=== PATIENT | male | born 1950 | race Caucasian/White ===

== ENCOUNTER 2023-01-14 12:33 | Outpatient (OUT) | payer MEDICARE, OTHER, SELFPAY ==
[2023-01-14 14:14] LABS: Prostate Specific Antigen Dx 4.17 ng/mL (<=4.00)
== END 2023-01-14 12:34 | disposition home or self-care (01) ==
LOC: LAB 12:40
PROVIDERS: PCP Family Medicine
DX: N40.0 Benign prostatic hyperplasia without lower urinary tract symptoms (principal); N20.0 Calculus of kidney; R97.20 Elevated prostate specific antigen [PSA]
CPT/HCPCS: 36415; 84153

== ENCOUNTER 2023-02-20 09:30 | Outpatient (OUT) | payer MEDICARE, OTHER, SELFPAY ==
[2023-02-20 10:09] LABS: Basophils Absolute Auto 0.1 10^3/uL (0.0-0.1); Basophils Percent Auto 0.7 % (0.2-2.0); Eosinophils Absolute Auto 0.3 10^3/uL (0.0-0.7); Eosinophils Percent Auto 3.5 % (0.9-7.0); Hematocrit 40.6 % (42.0-54.0); Hemoglobin 13.2 g/dL (14.0-18.0); Immature Granulocytes Abs Auto 0.03 10^3/uL (0.00-0.03); Immature Granulocytes Pct Auto 0.4 % (0.0-0.5); Lymphocytes Absolute Auto 0.9 10^3/uL (1.2-3.8); Mean Corpuscular HGB Conc 32.5 g/dL (29.9-35.2); Mean Corpuscular Hemoglobin 30.4 pg (25.9-34.0); Mean Corpuscular Volume 93.5 fL (80.0-94.0); Mean Platelet Volume 10.5 fL (9.5-13.5); Monocytes Absolute Auto 0.8 10^3/uL (0.3-0.8); Monocytes Percent Auto 10.6 % (1.7-12.0); Neutrophils Absolute Auto 5.3 10^3/uL (1.4-6.5); Neutrophils Percent Auto 72.8 % (43.0-75.0); Platelet Count 289 10^3/uL (150-450); Red Blood Count 4.34 10^6/uL (4.70-6.10); White Blood Count 7.2 10^3/uL (4.0-11.0)
[2023-02-20 10:11] LABS: Estimated Average Glucose 134 mg/dL; Glycohemoglobin A1C 6.3 % (4.5-6.2)
[2023-02-20 11:58] LABS: Alanine Aminotransferase 31 U/L (16-63); Albumin Globulin Ratio 1.1; Albumin Level 3.8 g/dL (3.4-5.0); Alkaline Phosphatase 66 U/L (46-116); Anion Gap 14.6; Aspartate Amino Transferase 20 U/L (15-37); BUN Creatinine Ratio 20.2; Bilirubin Total 0.5 mg/dL (0.2-1.0); Calcium 9.1 mg/dL (8.5-10.1); Carbon Dioxide 23.9 mmol/L (21.0-32.0); Chloride 105 mmol/L (98-107); Chol HDL Ratio 3.5; Cholesterol 161 mg/dL (<=200); Estimated GFR (African America >60 (>=60); Estimated GFR (Non-African Ame 55 (>=60); Free T3 2.64 pg/mL (2.18-3.98); Globulin 3.6 g/dL; Glucose 136 mg/dL (74-106); HDL Cholesterol 46 mg/dL (40-60); LDL Cholesterol Calculated 86.8 mg/dL; Potassium 4.5 mmol/L (3.5-5.1); Sodium 139 mmol/L (136-145); Thyroid Stimulating Hormone 2.668 uIU/mL (0.358-3.740); Total Protein 7.4 g/dL (6.4-8.2); Triglycerides 141 mg/dL (<=150); VLDL CHOLESTEROL 28.2 mg/dL
== END 2023-02-20 09:31 | disposition home or self-care (01) ==
LOC: LAB 09:32
PROVIDERS: PCP Family Medicine; Visit Provider Family Medicine
DX: E78.5 Hyperlipidemia, unspecified (principal); M54.50 Low back pain, unspecified; R73.09 Other abnormal glucose
CPT/HCPCS: 36415; 80053; 80061; 83036; 84436; 84443; 84481; 85025

== ENCOUNTER 2023-05-10 10:54 | Outpatient (OUT) | payer MEDICARE, OTHER, SELFPAY ==
[2023-05-10 11:18] LABS: Basophils Percent Auto 0.6 % (0.2-2.0); Eosinophils Absolute Auto 0.3 10^3/uL (0.0-0.7); Eosinophils Percent Auto 3.6 % (0.9-7.0); Hematocrit 43.9 % (42.0-54.0); Hemoglobin 14.2 g/dL (14.0-18.0); Immature Granulocytes Abs Auto 0.03 10^3/uL (0.00-0.03); Immature Granulocytes Pct Auto 0.4 % (0.0-0.5); Lymphocytes Absolute Auto 0.7 10^3/uL (1.2-3.8); Lymphocytes Percent Auto 10.2 % (20.5-60.0); Mean Corpuscular HGB Conc 32.3 g/dL (29.9-35.2); Mean Corpuscular Hemoglobin 30.1 pg (25.9-34.0); Mean Corpuscular Volume 93.2 fL (80.0-94.0); Mean Platelet Volume 10.4 fL (9.5-13.5); Monocytes Absolute Auto 0.7 10^3/uL (0.3-0.8); Monocytes Percent Auto 9.8 % (1.7-12.0); Neutrophils Absolute Auto 5.2 10^3/uL (1.4-6.5); Neutrophils Percent Auto 75.4 % (43.0-75.0); Platelet Count 247 10^3/uL (150-450); Red Blood Count 4.71 10^6/uL (4.70-6.10); Red Cell Distribution Width 12.5 % (11.0-15.0); White Blood Count 6.9 10^3/uL (4.0-11.0)
[2023-05-10 11:57] LABS: Estimated Average Glucose 140 mg/dL; Glycohemoglobin A1C 6.5 % (4.5-6.2)
[2023-05-10 12:37] LABS: Prostate Specific Antigen Scrn 4.22 ng/mL (<=4.00)
[2023-05-10 13:05] LABS: Alanine Aminotransferase 38 U/L (16-63); Albumin Level 3.9 g/dL (3.4-5.0); Alkaline Phosphatase 73 U/L (46-116); Anion Gap 13.9; Aspartate Amino Transferase 23 U/L (15-37); BUN Creatinine Ratio 16.2; Bilirubin Total 0.5 mg/dL (0.2-1.0); Calcium 9.4 mg/dL (8.5-10.1); Carbon Dioxide 26.7 mmol/L (21.0-32.0); Chloride 101 mmol/L (98-107); Chol HDL Ratio 3.7; Cholesterol 179 mg/dL (<=200); Estimated GFR (African America >60 (>=60); Estimated GFR (Non-African Ame >60 (>=60); Free T3 2.78 pg/mL (2.18-3.98); Globulin 3.8 g/dL; Glucose 134 mg/dL (74-106); HDL Cholesterol 48 mg/dL (40-60); Potassium 4.6 mmol/L (3.5-5.1); Sodium 137 mmol/L (136-145); Thyroid Stimulating Hormone 1.895 uIU/mL (0.358-3.740); Total Protein 7.7 g/dL (6.4-8.2); Triglycerides 227 mg/dL (<=150); VLDL CHOLESTEROL 45.4 mg/dL
[2023-05-14 09:08] LABS: PSA, Free 0.57 ng/mL; Prostate Specific Ag 3.5 ng/mL (0.0-4.0)
== END 2023-05-10 10:55 | disposition home or self-care (01) ==
PROVIDERS: PCP Family Medicine; Visit Provider Family Medicine
DX: I10 Essential (primary) hypertension (principal); K21.9 Gastro-esophageal reflux disease without esophagitis; M54.50 Low back pain, unspecified; E78.5 Hyperlipidemia, unspecified; R73.09 Other abnormal glucose; Z12.5 Encounter for screening for malignant neoplasm of prostate; R97.20 Elevated prostate specific antigen [PSA]; E11.9 Type 2 diabetes mellitus without complications
CPT/HCPCS: 36415; 80053; 80061; 83036; 84153; 84154; 84436; 84443; 84481; 85025; G0103

== ENCOUNTER 2024-01-24 11:58 | Outpatient (OUT) | payer MEDICARE, SELFPAY ==
--- OUTSIDE RECORDS SUMMARY | 2024-01-24 12:06 | XMS_ITS | CCD ---
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 Name Role Phone Unavailable Primary Care Provider Po Kay Primary Care Provider Harry Currie Attending Provider [phone] John Johnson Attending Provider [phone] Rafael Kumar Primary Care Physician John Johnson Unavailable [phone] MD Rafael Kumar Primary Care Provider [phone] MD John Johnson Attending Provider DR RAFAEL KUMAR Admitting Unavailable CASTRO, DR YOUNG Primary Care Unavailable CASTRO, DR YOUNG Consulting Unavailable CASTRO, DR YOUNG Attending Unavailable PASHA GORDON, DR GIOVANY Webster Admitting Unavailakin PAK JR, DR GIOVANY Webster Consulting Unavailakin PAK JR, DR GIOVANY Webster Attending Unavailakin KUMAR, DR YOUNG Primary Care Unavailable KARLA GALEANO Admitting Unavailable ROSSKARLA Consulting Unavailable KARLA GALEANO Attending Unavailable DR RAFAEL KUMAR Primary Care Unavailable TANO, DR RHODES Admitting Unavailable MISAbdon, DR RHODES Consulting Unavailable NOHEMYC, DR RHODES Attending Unavailable DR RAFAEL KUMAR Primary Care Unavailable DR NATHALIA GATES Consulting Unavailable MD Rafael Kumar Primary Care Provider [phone] MD John Johnson Attending Provider MD Rafael Kumar Primary Care Provider [phone] MD John Johnson Referring Provider RAGINI García Attending Provider MD Rafael Kumar Primary Care Provider MD John Johnson Referring Provider RAGINI García Maria T Flores Attending Provider MD John Johnson Attending Provider ELOISE SALAZAR Attending Unavailable ELOIES SALAZAR Attending Unavailable MD Rafael Kumar Primary Care Provider [phone] MD Quang Lima Attending Provider [phone] Rafael Kumar Primary Care Unavailable Quang Lima Attending Unavailable Quang Lima Admitting Unavailable Allergies Allergy Classification Reported Allergen(s) Allergy Type Date of Onset Reaction(s) Facility Angiotensin Converting Enzyme (SEDRICK) Inhibitors (2 sources) Lisinopril; Translations: [lisinopril] Drug Allergy 1 [facility] Repository (11 sources) Lisinopril; Translations: [lisinopril] Drug Allergy 2 Cough (finding) [employer] Other (1 source) Amino Acids Drug Allergy 1 [facility] Repository (1 source) No Known Medication Allergies; Translations: [No Known Medication Allergies] Propensity to adverse reactions (disorder) [facility] Repository Medications Current Medications Medication Drug Class(es) Dates Sig (Normalized) Sig (Original) B-12 1000 mcg oral tablet (2 sources) Start: 06-07-2020 B-12 1000 mcg oral tablet Refills(s) 0 Start Date: 06/07/20 Status: Ordered folic acid 1 mg / vitamin b12 0.5 mg oral tablet (7 sources) Vitamin B12 Start: 03-24-2019 take 1000 mg by mouth once daily Vitamin I36-Oxjqs Acid Active 1000 MG PO Daily March 24, 2019 12:00am gemfibrozil 600 mg oral tablet (14 sources) Peroxisome Proliferator Receptor alpha Agonist Start: 01-13-2019 take 1 tablet by mouth twice daily Gemfibrozil (Lopid) 600 mg Tablet Active 600 MG PO Twice daily January 13, 2019 12:00am glimepiride (4 sources) Sulfonylurea Glimepiride Acti ve Iron (2 sources) Start: 06-08-2020 iron iron Start Date: 06/08/20 Status: Ordered losartan potassium 50 mg oral tablet (13 sources) Angiotensin 2 Receptor Sriram Start: 01-13-2019 take 50 mg by mouth once daily Losartan Active 50 MG PO Daily January 13, 2019 12:00am mercaptopurine 50 mg oral tablet (11 sources) Nucleoside Metabolic Inhibitor Start: 06-07-2020 mercaptopurine 50 mg Tab Refills(s) 0 Start Date: 06/07/20 Status: Ordered Start: 01-13-2019 End: 09-12-2022 take 2 tablets by mouth once daily Mercaptopurine Discontinued 2 TAB PO Daily January 13, 2019 12:00am September 12, 2022 10:45am take 2 tablets by mo ut once daily Mercaptopurine 50 TAKE TWO TABLETS BY MOUTH DAILY orally daily for 90 day(s) Active metFORMIN hydrochloride 500 mg oral tablet (13 sources) Biguanide Start: 01-13-2019 take 1 tablet by mouth twice daily Glucophage 500 mg oral tablet 500 mg = 1 tab(s), Oral, BID, # 180 tab(s), Refills(s) 0 Start Date: 06/07/20 Status: Ordered Start: 01-13-2019 take 1000 mg by mouth twice da marilee Metformin Active 1000 MG PO Twice daily January 13, 2019 12:00am take 2 tablets by mo ut every twelve hours metFORMIN HCl 500 mg 2 tablet with meals Orally bid Active Milk thistle extract (1 source) Milk Thistle Act courtney olmesartan medoxomil 20 mg oral tablet (1 source) Angiotensin 2 Receptor Sriram Start: 06-07-2020 Benicar 20 mg Tab Refills(s) 0 Start Date: 06/07/20 Status: Ordered Omeprazole (13 sources) Proton Pump Inhibitor Start: 06-07-2020 Omeprazole 20 mg Cap - DR Refills(s) 0 Start Date: 06/07/20 Status: Ordered Start: 06-07-2020 Omeprazole 20 mg Cap - DR Refills(s) 0 Start Date: 06/07/20 Status: Ordered Start: 01-13-2019 take 20 mg by mouth once daily Omeprazole Active 20 MG PO Daily January 13, 2019 12:00am take 1 capsule by mo ut once daily Omeprazole 20 TAKE ONE CAPSULE BY MOUTH DAILY orally Daily for 90 day(s) Active pioglitazone 15 mg oral tablet (12 sources) Peroxisome Proliferator Receptor alpha Agonist, Peroxisome Proliferator Receptor gamma Agonist, Thiazolidinedione Start: 01-13-2019 take 1 tablet by mouth once daily Pioglitazone (Actos) 15 mg Tablet Active 15 MG PO Daily January 13, 2019 12:00am simvastatin 10 mg oral tablet (13 sources) HMG-CoA Reductase Inhibitor Start: 01-13-2019 take 10 mg by mouth once daily at bedtime Simvastatin Active 10 MG PO Daily at bedtime January 13, 2019 12:00am tamsulosin hydrochloride 0.4 mg oral capsule (11 sources) alpha-Adrenergic Sriram Start: 06-07-2020 take 0.4 mg by mouth once daily Tamsulosin Active 0.4 MG PO Daily September 15, 2021 1:00am Tamsulosin HCl A ctive Timolol (4 sources) beta-Adrenergic Sriram Timolol Maleate Active Triamcinolone (1 source) Corticosteroid Start: 06-07-2020 Triamcinolone Acetonide Refills(s) 0 Start Date: 06/07/20 Status: Ordered vitamin B12 (4 sources) Vitamin B12 Vitamin B 12 Act courtney Vitamin D3 (4 sources) Vitamin D3 Activ e Vitamin E (1 source) Vitamin E Active Completed/Discontinued Medications Medication Drug Class(es) Dates Sig (Normalized) Sig (Original) cholecalciferol 0.025 mg oral tablet (9 sources) Vitamin D Start: 06-08-2020 take 1 tablet by mouth once daily cholecalciferol 1000 intl units oral tablet 1,000 International_Unit = 1 tab(s), Oral, Daily, # 30 tab(s), Refills(s) 0 Start Date: 06/08/20 Status: Ordered Start: 01-19-2019 take 4 capsules by m outh once daily Cholecalciferol (Vitamin D3) (Vitamin D3) 1,000 unit Capsule Active 4000 UNIT PO Daily January 19, 2019 12:00am Problems Active Problems Problem Classification Problem Date Documented Date Episodic/Chronic Calculus of urinary tract (8 sources) Kidney stone; Translations: [Calculus of kidney] Onset: 07-03-2021 Episodic Congestive heart failure; nonhypertensive (1 source) Unspecified diastolic (congestive) heart failure; Translations: [UNSPECIFIED DIASTOLIC HEART FAILURE] Onset: 05-20-2022 Chronic Deficiency and other anemia (11 sources) Anemia; Translations: [Anemia, unspecified] 08-25-2020 Episodic Deficiency and other anemia (3 sources) Anemia, unspecified; Translations: [Anemia, unspecified] Episodic Deficiency and other anemia (4 sources) Iron deficiency anemia; Translations: [Iron deficiency anemia, unspecified] Episodic Diabetes mellitus without complication (3 sources) Diabetes mellitus; Translations: [Type 2 diabetes mellitus without complications] Onset: 05-20-2022 06-07-2020 Chronic Diseases of white blood cells (12 sources) Leukopenia; Translations: [Decreased white blood cell count, unspecified] Chronic Disorders of lipid metabolism (3 sources) Hyperlipidemia; Translations: [Hyperlipidemia, unspecified] Onset: 05-20-2022 06-08-2020 Chronic Diverticulosis and diverticulitis (6 sources) Diverticular disease; Translations: [Diverticulosis of intestine, part unspecified, without perforation or abscess without bleeding] 06-07-2020 Chronic Esophageal disorders (6 sources) Gastroesophageal reflux disease; Translations: [Gastro-esophageal reflux disease without esophagitis] 06-07-2020 Chronic Essential hypertension (6 sources) Hypertensive disorder; Translations: [Essential (primary) hypertension] 06-08-2020 Chronic Genitourinary symptoms and ill-defined conditions (2 sources) Nocturia 06-08-2020 Episodic Hemorrhoids (6 sources) Hemorrhoids; Translations: [Unspecified hemorrhoids] 06-07-2020 Episodic Hyperplasia of prostate (12 sources) Benign prostatic hypertrophy without outflow obstruction; Translations: [Benign prostatic hyperplasia without lower urinary tract symptoms] Onset: 07-10-2021 Chronic Hypertension with complications and secondary hypertension (1 source) Hypertensive heart disease with heart failure; Translations: [HTN HEART DISEASE W/HEART FAIL] Onset: 05-20-2022 Chronic Nutritional deficiencies (14 sources) Cobalamin deficiency; Translations: [Deficiency of other specified B group vitamins] Episodic Other and unspecified benign neoplasm (2 sources) Hyperplastic polyp of large intestine 06-07-2020 Episodic Other and unspecified benign neoplasm (14 sources) History of polyp of colon; Translations: [Personal history of colonic polyps] 09-15-2021 Episodic Other and unspecified benign neoplasm (4 sources) Polyp of colon; Translations: [Polyp of colon] Episodic Other and unspecified benign neoplasm (4 sources) Benign neoplasm of colon; Translations: [Polyp of colon] Episodic Other and unspecified benign neoplasm (4 sources) Gastric polyp; Translations: [Polyp of stomach and duodenum] Episodic Other connective tissue disease (2 sources) Bursitis of olecranon of left elbow 06-07-2020 Episodic Other liver diseases (3 sources) Steatosis of liver; Translations: [Fatty (change of) liver, not elsewhere classified] Chronic Other liver diseases (4 sources) Fatty (change of) liver, not elsewhere classified; Translations: [Fatty (change of) liver, not elsewhere classified] Onset: 08-16-2021 Resolved: 02-14-2022 Chronic Other liver diseases (2 sources) Unspecified cirrhosis of liver; Translations: [Cirrhotic] Chronic Other lower respiratory disease (2 sources) Dyspnea on exertion 06-07-2020 Episodic Other lower respiratory disease (1 source) Other forms of dyspnea; Translations: [OTHER FORMS OF DYSPNEA] Onset: 05-20-2022 Episodic Other male genital disorders (2 sources) Disorder of prostate 07-06-2020 Episodic Other screening for suspected conditions (not mental disorders or infectious disease) (10 sources) Raised prostate specific antigen; Translations: [Elevated prostate specific antigen [PSA]] Onset: 06-27-2021 Resolved: 06-27-2021 Episodic Regional enteritis and ulcerative colitis (20 sources) Crohn's disease; Translations: [Crohn's disease, unspecified, without complications] Onset: 06-27-2021 Resolved: 02-14-2022 06-07-2020 Chronic Spondylosis; intervertebral disc disorders; other back problems (2 sources) Low back pain 06-07-2020 Episodic Unclassified (2 sources) Liver fibrosis; Translations: [Liver fibrosis] Past or Other Problems Problem Classification Problem Date Documented Da te Episodic/Chronic Immunizations and screening for infectious disease (4 sources) Encounter for immunization; Translations: [ENCOUNTER FOR IMMUNIZATION] Onset: 06-27-2021 Episodic Unclassified (2 sources) Liver fibrosis K74.00 Onset: 11-15-2021 Resolved: 02-14-2022 Results Test Name Value Interpretation Reference Range Facility [facility] 02-25-2023 Lab Reports [id number]:12 7 [facility] Screenson 01-24-2023 Screens [id number]:1 27 [facility] Screens [id number]:1 27 [facility] Ambulatory Visit Summaryon 0 01-23-2023 Ambulatory Visit Summary SIS JOHNSON :1950 Visit Date:01/23/2023 Ambulatory Visit Instructions Your Diagnosis Elevated PSA BPH (benign prostatic hyperplasia) Kidney stone Tests Performed Urnls Dip Stick Auto w/o Microscopy POC 72050 Your Care Team Attending Physician - ELOISE SALAZAR PA-C Primary Care Physician - Rafael Kumar MD This Is Your Medications List Contact prescribing physician if questions or concerns Non-Formulary Medication (iron) cholecalciferol (cholecalciferol 1000 intl units oral tablet) cyanocobalamin (B-12 1000 mcg oral tablet) gemfibrozil (gemfibrozil 600 mg Tab) losartan (losartan 50 mg Tab) metformin (Glucophage 500 mg oral tablet) omeprazole (Omeprazole 20 mg Cap - DR) simvastatin (simvastatin 10 mg Tab) Discharge Vitals Heart Rate (Peripheral) 68 Respiratory Rate 16 Blood Pressure 128/70 Height 183 cm Height 72 in Weight 87 kg Weight 191.4 lb BMI 25.98 What to do next Scheduled Follow-Up Appointments Saturday 1:00 PM EDT With: ELOISE SALAZAR PA-C Where: [facility] Patient Educationon 01-24-20 23 Patient Education Oncology Prostate Cancer Screening Prostate cancer screening is testing that is done to check for the presence of prostate cancer in men. The prostate gland is a walnut-sized gland that is located below the bladder and in front of the rectum in males. The function of the prostate is to add fluid to semen during ejaculation. Prostate cancer is one of the most common types of cancer in men. Who should have prostate cancer screening? Screening recommendations vary based on age and other risk factors, as well as between the professional organizations who make the recommendations. In general, screening is recommended if: ? You are age 50 to 70 and have an average risk for prostate cancer. You should talk with your health care provider about your need for screening and how often screening should be done. Because most prostate cancers are slow growing and will not cause , screening in this age group is generally reserved for men who have a 10- to 15-year life expectancy. ? You are younger than age 50, and you have these risk factors: ? Having a father, brother, or uncle who has been diagnosed with prostate cancer. The risk is higher if your family member's cancer occurred at an early age or if you have multiple family members with prostate cancer at an early age. ? Being a male who is Black or is of [place] or sub-Saharan descent. In general, screening is not recommended if: ? You are younger than age 40. ? You are between the ages of 40 and 49 and you have no risk factors. ? You are 70 years of age or older. At this age, the risks that screening can cause are greater than the benefits that it may provide. If you are at high risk for prostate cancer, your health care provider may recommend that you have screenings more often or that you start screening at a younger age. How is screening for prostate cancer done? The recommended prostate cancer screening test is a blood test called the prostate-specific antigen (PSA) test. PSA is a protein that is made in the prostate. As you age, your prostate naturally produces more PSA. Abnormally high PSA levels may be caused by: ? Prostate cancer. ? An enlarged prostate that is not caused by cancer (benign prostatic hyperplasia, or BPH). This condition is very common in older men. ? A prostate gland infection (prostatitis) or urinary tract infection. ? Certain medicines such as male hormones (like testosterone) or other medicines that raise testosterone levels. A rectal exam may be done as part of prostate cancer screening to help provide information about the size of your prostate gland. When a rectal exam is performed, it should be done after the PSA level is drawn to avoid any effect on the results. Depending on the PSA results, you may need more tests, such as: ? A physical exam to check the size of your prostate gland, if not done as part of screening. ? Blood and imaging tests. ? A procedure to remove tissue samples from your prostate gland for testing (biopsy). This is the only way to know for certain if you have prostate cancer. What are the benefits of prostate cancer screening? ? Screening can help to identify cancer at an early stage, before symptoms start and when the cancer can be treated more easily. ? There is a small chance that screening may lower your risk of dying from prostate cancer. The chance is small because prostate cancer is a slow-growing cancer, and most men with prostate cancer from a different cause. What are the risks of prostate cancer screening? The main risk of prostate cancer screening is diagnosing and treating prostate cancer that would never have caused any symptoms or problems. This is called overdiagnosisand overtreatment. PSA screening cannot tell you if your PSA is high due to cancer or a different cause. A prostate biopsy is the only procedure to diagnose prostate cancer. Even the results of a biopsy may not tell you if your cancer needs to be treated. Slow-growing prostate cancer may not need any treatment other than monitoring, so diagnosing and treating it may cause unnecessary stress or other side effects. Questions to ask your health care provider ? When should I start prostate cancer screening? ? What is my risk for prostate cancer? ? How often do I need screening? ? What type of screening tests do I need? ? How do I get my test results? ? What do my results mean? ? Do I need treatment? Where to find more information ? The [employer] [employer]: www.cancer.org ? [employer]: www.auanet.org Contact a health care provider if: ? You have difficulty urinating. ? You have pain when you urinate or ejaculate. ? You have blood in your urine or semen. ? You have pain in your back or in the area of your prostate. Summary ? Prostate cancer is a common type of cancer in men. The prostate gland is located below the bladder and in front of the rectum. This gland adds flu (more content not included)... 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 Here today for 1yr PSA DX: BPH, Kidney Stone & Elevated PSA *No Urology Medications (previously took Flomax) PSA 01/14/23- 4.17 Occasional mild enuresis for the past yr. Gets up 2x/night to void. Notices that he is damp at that time. Denies problems with stream. Denies pain/burning and blood in urine. Occasional mild urgency. IPSS 10 PRO 12 History of Present Illness staff HPI reviewed and agree. Review of Systems PHQ Score Initial Depression Screen Score: 0 no fever, chills, malaise, myalgia. no rash/lesions. no chest pain, palpitations, or SOB. no abdominal pain, nausea, vomiting. no unilateral calf swelling, redness, pain Physical Exam Vitals & Measurements HR: 68(Peripheral) RR: 16 BP: 128/70 HT: 72 in HT: 183 cm WT: 87 kg WT: 191.4 lb BMI: 25.98 General: nontoxic, NAD Mouth: moist mucosa Lungs: normal respiratory effort Cardio: regular rate, good distal perfusion Abdomen: nondistended, no suprapubic distention or tenderness, no CVA tenderness Neurologic: Grossly normal Skin: No rashes or suspicious lesions Assessment/Plan UA today is negative for blood and infection. 1. Elevated PSA (R97.20: Elevated prostate specific antigen [PSA]) [facility] 06/2020 positive (59% finding cancer, 31% Martin 7 or higher) MRI 07/2020 - PI-RADS 2 PSA 09/27/20 - 4.90 03/29/21 - 6.78 07/07/21 - 3.80 01/01/22 - 4.67 01/14/23 - 4.17 PSA down a bit since last year. Overall pretty stable over the past 2.5 yrs aside from one rogue level of 6.78 I discussed the pros and cons of PSA with the patient today. The various causes of PSA elevation were outlined, including prostate cancer, prostate enlargement, infection of the prostate, inflammation without infection, as well as prostate manipulation. The options regarding this PSA elevation, including prostate biopsy versus close monitoring, versus obtaining a repeat MRI of the prostate were discussed. Discussed with pt that at this time we will continue to monitor his PSA yearly. Pt understands and agrees with this plan. 2. BPH (benign prostatic hyperplasia) (N40.0: Benign prostatic hyperplasia without lower urinary tract symptoms) Pt has taken Flomax in the past. Stopped it because he didn't feel it was helping. Currently IPSS 10, QoL 2. Overall pt states that he is doing well with urination. Risks/benefits of alpha sriram therapy vs untreated obstruction discussed. Pt elects to continue without medication at this time. Educated pt that if he starts having problems voiding that he can contact our office so he can start medication again. 3. Kidney stone (N20.0: Calculus of kidney) KUB 07/03/21 is neg for stones. No symptoms at this time. Does not wish to check imaging at this time. Follow-up With When Contact Information AMRIE FUNG, ELOISE Franco, URL In 1 year [address] [place] [address] Additional Instructions: w/ PSA Patient Education Prostate Cancer Screening Documentation recorded by the scrflorencia Amador accurately reflects the services(s) I performed and decisions made by me. Authenticated by Eloise Salazar PA-C on 01/23/2023 14:09:32. I, Kathy Amador, personally scribed for Eloise Salazar PA-C on 01/23/2023 13:56:54. . Problem List/Past Medical History Ongoing BPH (benign prostatic hyperplasia) BPH with urinary obstruction Crohn's disease Diabetes mellitus Diverticulosis Dyspnea on exertion Elevated PSA GERD (gastroesophageal reflux disease) Hemorrhoids Hyperlipemia Hyperplastic colonic polyp Hypertension Kidney stone Leukopenia Low back pain syndrome Nocturia Olecranon bursitis, left elbow Prostate disease Historical No qualifying data Medications B-12 1000 mcg oral tablet cholecalciferol 1000 intl units oral tablet, 1000 International_Unit= 1 tab(s), Oral, Daily gemfibrozil 600 mg Tab, Oral, BID Glucophage 500 mg oral tablet, 500 mg= 1 tab(s), Oral, BID iron losartan 50 mg Tab, Oral, Daily Omeprazole 20 mg Cap - DR simvastatin 10 mg Tab Allergies lisinopril (Cough) Social History Tobacco Former smoker, quit more than 30 days ago Tobacco Use:. Never Smokeless Tobacco Use:. Cigarettes, Household tobacco concerns: No. Yes, 01/23/2023 Family History Arthritis: Mother. Brain cancer: Father. Diabetes mellitus type 2: Mother. Heart disease: Father. Hyperglycemia: Negative: Mother. Hypertension: Mother. Parkinson disease: Mother. Immunizations Vaccine Date Status SARS-CoV-2 (COVID-19) [id number] 05/29/2022 Recorded influenza virus vaccine, inactivated 05/09/2022 Recorded SARS-CoV-2 (COVID-19) mRNA-1273 vaccine 06/27/2021 Recorded influenza virus vaccine, inactivated 04/24/2021 Recorded SARS-CoV-2 (COVID-19) mRNA-1273 vaccine 11/02/2020 Recorded SARS-CoV-2 (COVID-19) mRNA-1273 vaccine 10/16/2020 Recorded SARS- (more content not included)... Normal [facility] Comment on above: Result Comment: Elec tronically Signed By: ELOISE SALAZAR PA-C\.br\Date and Time Signed: 01/23/23 14:10 EDT\.br\Electronically Co-Signed By: Kathy Amador\.br\Date and Time Co-Signed: 01/23/23 13:57 EDT Alanine aminotransferase [En zymatic activity/volume] in Serum or PlasmaOrdered By: John Johnson on 12-03-2022 ALT [Catalytic activity/Vol] 21 U/L 7-52 [facility] Albumin [Mass/volume] in Ser um or Plasma by Bromocresol green (BCG) dye binding methoOrdered By: John Johnson on 12-03-2022 Albumin BCG dye [Mass/Vol] 4.2 g/dL 3.5-5.7 [facility] Alkaline phosphatase [Enzyma tic activity/volume] in Serum or PlasmaOrdered By: John Johnson on 12-03-2022 ALP [Catalytic activity/Vol] 53 U/L 34-104 [facility] Aspartate aminotransferase [ Enzymatic activity/volume] in Serum or PlasmaOrdered By: John Johnson on 12-03-2022 AST [Catalytic activity/Vol] 19 U/L 13-39 [facility] Basophils Auto (Bld) [#/Vol] Ordered By: John Johnson 12-03-2022 Basophils (Bld) [#/Vol] 0.0 10*3/uL 0.0-0.2 [facility] Basophils/100 WBC Auto (Bld) Ordered By: John Johnson on 12-03-2022 Basophils/100 WBC (Bld) 0.7 % . [facility] Bilirubin.total [Mass/volume ] in Serum or PlasmaOrdered By: John Johnson on 12-03-2022 Bilirubin [Mass/Vol] 0.5 mg/dL 0.3-1.0 [facility] Calcium [Mass/volume] in Ser um or PlasmaOrdered By: John Johnson 12-03-2022 Calcium [Mass/Vol] 9.5 mg/dL 8.6-10.3 [facility] Carbon dioxide, total [Moles /volume] in Serum or PlasmaOrdered By: John Johnson on 12-03-2022 CO2 [Moles/Vol] 26.8 mmol/L 21.0-31.0 [facility] Chloride [Moles/volume] in S juan luis or PlasmaOrdered By: John Johnson on 12-03-2022 Chloride [Moles/Vol] 108 mmol/L 98-107 [facility] Creatinine [Mass/volume] in Serum or PlasmaOrdered By: John Johnson on 12-03-2022 Creatinine [Mass/Vol] 1.04 mg/dL 0.70-1.30 [facility] Eosinophils Auto (Bld) [#/Vo l]Ordered By: John Johnson on 12-03-2022 Eosinophils (Bld) [#/Vol] 0.3 10*3/uL 0.0-0.45 [facility] Eosinophils/100 WBC Auto (Bl d)Ordered By: John Johnson on 12-03-2022 Eosinophils/100 WBC (Bld) 5.3 % . [facility] Erythrocyte distribution wid th Auto (RBC) [Ratio]Ordered By: John Johnson on 12-03-2022 Erythrocyte distribution width (RBC) [Ratio] 13.5 % 12.0-14.8 [facility] Globulin Calc (S) [Mass/Vol] Ordered By: John Johnson 12-03-2022 Globulin (S) [Mass/Vol] 2.4 g/dL [facility] Glucose [Mass/volume] in Ser um or PlasmaOrdered By: John Johnson on 12-03-2022 Glucose [Mass/Vol] 103 mg/dL 70-100 [facility] Comment on above: ADA recommended refe rence rangeRandom Glucose Reference Range is dependent on time and content of last meal. Glucose of more than 200 mg/dL in a nonstressed, ambulatory subject supports the diagnosis of Diabetes Mellitus. Hematocrit Auto (Bld) [Volum e fraction]Ordered By: John Johnson on 12-03-2022 Hematocrit (Bld) [Volume fraction] 40.2 % 38.8-50.0 [facility] Hemoglobin [Mass/volume] in BloodOrdered By: John Johnson on 12-03-2022 Hemoglobin (Bld) [Mass/Vol] 13.0 g/dL 13.0-17.0 [facility] Leukocytes [#/volume] correc mauricio for nucleated erythrocytes in Blood by Automated counOrdered By: John Johnson on 12-03-2022 WBC corrected for nucl RBC Auto (Bld) [#/Vol] 6.1 10*3/uL 4.1-10.5 [facility] Lymphocytes Auto (Bld) [#/Vo l]Ordered By: John Johnson on 12-03-2022 Lymphocytes (Bld) [#/Vol] 0.9 10*3/uL 1.00-4.8 [facility] Lymphocytes/100 WBC Auto (Bl d)Ordered By: John Johnson on 12-03-2022 Lymphocytes/100 WBC (Bld) 15.0 % . [facility] MCH Auto (RBC) [Entitic mass ]Ordered By: John Johnson on 12-03-2022 MCH (RBC) [Entitic mass] 30.1 pg 27.5-35.2 [facility] MCHC Auto (RBC) [Mass/Vol]Or dered By: John Johnson on 12-03-2022 MCHC (RBC) [Mass/Vol] 32.5 g/dL 32.5-35.6 [facility] MCV Auto (RBC) [Entitic vol] Ordered By: John Johnson on 12-03-2022 MCV (RBC) [Entitic vol] 92.9 fL 83.5-101 [facility] Monocytes Auto (Bld) [#/Vol] Ordered By: John Johnson on 12-03-2022 Monocytes (Bld) [#/Vol] 0.6 10*3/uL 0.0-0.8 [facility] Monocytes/100 WBC Auto (Bld) Ordered By: John Johnson on 12-03-2022 Monocytes/100 WBC (Bld) 10.4 % . [facility] Neutrophils Auto (Bld) [#/Vo l]Ordered By: John Johnson on 12-03-2022 Neutrophils (Bld) [#/Vol] 4.2 10*3/uL 1.8-7.7 [facility] Neutrophils/100 WBC Auto (Bl d)Ordered By: John Johnson on 12-03-2022 Neutrophils/100 WBC (Bld) 68.6 % . [facility] No Panel InformationOrdered By: John Johnson on 12-03-2022 Estimated GFR (CKD-EPI) > 60.0 mL/Min [facility] Creatinine Clearance (Chem N/A [facility] Nucleated erythrocytes [Pres ence] in Blood by Automated countOrdered By: John Johnson on 12-03-2022 Nucleated RBC Auto Ql (Bld) 0.1 /100{WBC} 0-0.5 [facility] Platelet mean volume Auto (B ld) [Entitic vol]Ordered By: John Johnson on 12-03-2022 Platelet mean volume (Bld) [Entitic vol] 9.0 fL 6.6-10.1 [facility] Platelets Auto (Bld) [#/Vol] Ordered By: John Johnson on 12-03-2022 Platelets (Bld) [#/Vol] 205 10*3/uL 150-450 [facility] Potassium [Moles/volume] in Serum or PlasmaOrdered By: John Johnson on 12-03-2022 Potassium [Moles/Vol] 4.5 mmol/L 3.5-5.1 [facility] Protein [Mass/volume] in Ser um or PlasmaOrdered By: John Johnson on 12-03-2022 Protein [Mass/Vol] 6.6 g/dL 6.4-8.9 [facility] RBC Auto (Bld) [#/Vol]Ordere d By: John Johnson on 12-03-2022 RBC (Bld) [#/Vol] 4.33 10*6/uL 3.90-5.60 [facility] Serum or plasma albumin/glob ulin mass ratioOrdered By: John Johnson on 12-03-2022 Albumin/Globulin [Mass ratio] 1.8 {ratio} [facility] Serum or plasma anion gap de terminationOrdered By: John Johnson on 12-03-2022 Anion gap [Moles/Vol] 12.7 mmol/L 6.0-15.0 [facility] Sodium [Moles/volume] in Ser um or PlasmaOrdered By: John Johnson on 12-03-2022 Sodium [Moles/Vol] 143 mmol/L 136-145 [facility] Urea nitrogen [Mass/volume] in Serum or PlasmaOrdered By: John Johnson on 12-03-2022 Urea nitrogen [Mass/Vol] 19 mg/dL 7-25 [facility] WBC Auto (Bld) [#/Vol]Ordere d By: John Johnson on 12-03-2022 WBC (Bld) [#/Vol] 6.1 10*3/uL 4.1-10.5 [facility] Albumin [Mass/volume] in Ser um or PlasmaOrdered By: Maria T García on 09-04-2022 Albumin [Mass/Vol] 3.8 g/dL 3.2-5.5 [facility] Alkaline phosphatase [Enzyma tic activity/volume] in Serum or PlasmaOrdered By: Maria T García on 09-04-2022 ALP [Catalytic activity/Vol] 55 U/L 32-92 [facility] Aspartate aminotransferase [ Enzymatic activity/volume] in Serum or PlasmaOrdered By: Maria T García on 09-04-2022 AST [Catalytic activity/Vol] 18 U/L 10-42 [facility] Basophils Auto (Bld) [#/Vol] Ordered By: Maria T García on 09-04-2022 Basophils (Bld) [#/Vol] 0.1 10*3/uL 0.0-0.2 [facility] Basophils/100 WBC Auto (Bld) Ordered By: Maria T García on 09-04-2022 Basophils/100 WBC (Bld) 0.8 % . [facility] CT biopsyOrdered By: Maria T Means on 09-04-2022 Transferrin [Mass/Vol] 273 mg/dL 180-380 [facility] Calcium [Mass/volume] in Ser um or PlasmaOrdered By: Maria T García on 09-04-2022 Calcium [Mass/Vol] 9.6 mg/dL 8.2-10.2 [facility] Carbon dioxide, total [Moles /volume] in Serum or PlasmaOrdered By: Maria T García on 09-04-2022 CO2 [Moles/Vol] 25.5 mmol/L 22.0-30.0 [facility] Creatinine and Glomerular fi ltration rate.predicted panel (S/P/Bld)Ordered By: Maria T García on 09-04-2022 Creatinine [Mass/Vol] 1.04 mg/dL 0.64-1.27 [facility] Eosinophils Auto (Bld) [#/Vo l]Ordered By: Maria T García on 09-04-2022 Eosinophils (Bld) [#/Vol] 0.3 10*3/uL 0.0-0.45 [facility] Eosinophils/100 WBC Auto (Bl d)Ordered By: Maria T García on 09-04-2022 Eosinophils/100 WBC (Bld) 4.2 % . [facility] Erythrocyte distribution wid th Auto (RBC) [Ratio]Ordered By: Maria T García on 09-04-2022 Erythrocyte distribution width (RBC) [Ratio] 14.0 % 12.0-14.8 [facility] Estimated glomerular filtrat ion rate (GFR) non- AmericanOrdered By: Maria T García on 09-04-2022 GFR/1.73 sq M.predicted among non-blacks MDRD (S/P/Bld) [Vol rate/Area] > 60 mL/Min [facility] Ferritin [Mass/volume] in Se rum or PlasmaOrdered By: Maria T García on 09-04-2022 Ferritin [Mass/Vol] 66.2 ng/mL 23.9-336.2 [facility] Folate [Mass/volume] in Seru m or PlasmaOrdered By: Maria T García on 09-04-2022 Folate [Mass/Vol] 5.5 ng/mL >5.9 [facility] Comment on above: Folate reference ran ge: >5.9 ng/mlThe WHO technical consultation on folate and vitamin [id number] has determined that folate concentrations lessthan 4 ng/ml are considered deficient. Globulin Calc (S) [Mass/Vol] Ordered By: Maria T García on 09-04-2022 Globulin (S) [Mass/Vol] 2.6 g/dL [facility] Hematocrit Auto (Bld) [Volum e fraction]Ordered By: Maria T García on 09-04-2022 Hematocrit (Bld) [Volume fraction] 41.1 % 38.8-50.0 [facility] Hemoglobin [Mass/volume] in BloodOrdered By: Maria T García on 09-04-2022 Hemoglobin (Bld) [Mass/Vol] 13.4 g/dL 13.0-17.0 [facility] Iron [Mass/volume] in Serum or PlasmaOrdered By: Maria T García on 09-04-2022 Iron [Mass/Vol] 115 ug/dL 40-160 [facility] Iron binding capacity [Mass/ volume] in Serum or PlasmaOrdered By: Maria T García on 09-04-2022 Iron binding capacity [Mass/Vol] 382 ug/dL 255-450 [facility] Iron saturation [Mass Fracti on] in Serum or PlasmaOrdered By: Maria T García on 09-04-2022 Iron saturation [Mass fraction] 30.1 % 20-50 [facility] - Chemistry and C hemistry - challengeOrdered By: Maria T García on 09-04-2022 Cobalamin (Vitamin B12) [Mass/Vol] 1326 pg/mL 180-914 [facility] Leukocytes [#/volume] correc mauricio for nucleated erythrocytes in Blood by Automated counOrdered By: Maria T García on 09-04-2022 WBC corrected for nucl RBC Auto (Bld) [#/Vol] 7.1 10*3/uL 4.1-10.5 [facility] Lymphocytes Auto (Bld) [#/Vo l]Ordered By: Maria T García on 09-04-2022 Lymphocytes (Bld) [#/Vol] 0.8 10*3/uL 1.00-4.8 [facility] Lymphocytes/100 WBC Auto (Bl d)Ordered By: Maria T García on 09-04-2022 Lymphocytes/100 WBC (Bld) 11.7 % . [facility] MCH Auto (RBC) [Entitic mass ]Ordered By: Maria T García on 09-04-2022 MCH (RBC) [Entitic mass] 30.2 pg 27.5-35.2 [facility] MCHC Auto (RBC) [Mass/Vol]Or dered By: Maria T García on 09-04-2022 MCHC (RBC) [Mass/Vol] 32.7 g/dL 32.5-35.6 [facility] MCV Auto (RBC) [Entitic vol] Ordered By: Maria T García on 09-04-2022 MCV (RBC) [Entitic vol] 92.6 fL 83.5-101 [facility] Monocytes Auto (Bld) [#/Vol] Ordered By: Maria T García on 09-04-2022 Monocytes (Bld) [#/Vol] 0.7 10*3/uL 0.0-0.8 [facility] Monocytes/100 WBC Auto (Bld) Ordered By: Maria T García on 09-04-2022 Monocytes/100 WBC (Bld) 9.6 % . [facility] Neutrophils Auto (Bld) [#/Vo l]Ordered By: Maria T García on 09-04-2022 Neutrophils (Bld) [#/Vol] 5.2 10*3/uL 1.8-7.7 [facility] Neutrophils/100 WBC Auto (Bl d)Ordered By: Maria T García on 09-04-2022 Neutrophils/100 WBC (Bld) 73.7 % . [facility] No Panel InformationOrdered By: Maria T García on 09-04-2022 Estimated GFR () > 60 mL/Min [facility] Comment on above: GFR estimated refere nce range: According to KDOQI guidelines, <60 ml/min/1.73m2 is sufficient to diagnose a patient with chronic kidney disease. Pharmacy Creatinine Clearance (Chem 72.58 [facility] Nucleated erythrocytes [Pres ence] in Blood by Automated countOrdered By: Maria T García on 09-04-2022 Nucleated RBC Auto Ql (Bld) 0.1 /100{WBC} 0-0.5 [facility] Platelet mean volume Auto (B ld) [Entitic vol]Ordered By: Maria T García on 09-04-2022 Platelet mean volume (Bld) [Entitic vol] 9.0 fL 6.6-10.1 [facility] Platelets Auto (Bld) [#/Vol] Ordered By: Maria T García on 09-04-2022 Platelets (Bld) [#/Vol] 195 10*3/uL 150-450 [facility] Protein [Mass/volume] in Ser um or PlasmaOrdered By: Maria T García on 09-04-2022 Protein [Mass/Vol] 6.4 g/dL 6.1-7.9 [facility] RBC Auto (Bld) [#/Vol]Ordere d By: Maria T García on 09-04-2022 RBC (Bld) [#/Vol] 4.44 10*6/uL 3.90-5.60 [facility] Serum or plasma alanine johnson otransferase measurement without P-5'-P (enzymatic activiOrdered By: Maria T García on 09-04-2022 ALT No additional P-5'-P [Catalytic activity/Vol] 21 U/L 10-60 [facility] Serum or plasma albumin/glob ulin mass ratioOrdered By: Maria T García on 09-04-2022 Albumin/Globulin [Mass ratio] 1.5 {ratio} [facility] Serum or plasma anion gap de terminationOrdered By: Maria T García on 09-04-2022 Anion gap [Moles/Vol] 12.0 mmol/L 6.0-15.0 [facility] Serum or plasma chloride ronan surement (moles/volume)Ordered By: Maria T García on 09-04-2022 Chloride [Moles/Vol] 105 mmol/L 95-114 [facility] Serum or plasma glucose rema urement (mass/volume)Ordered By: Maria T García on 09-04-2022 Glucose [Mass/Vol] 120 mg/dL 70-100 [facility] Comment on above: ADA recommended refe rence rangeRandom Glucose Reference Range is dependent on time and content of last meal. Glucose of more than 200 mg/dL in a nonstressed, ambulatory subject supports the diagnosis of Diabetes Mellitus. Serum or plasma potassium me asurement (moles/volume)Ordered By: Maria T Bazzike on 09-04-2022 Potassium [Moles/Vol] 4.5 mmol/L 3.5-5.1 [facility] Serum or plasma sodium measu rement (moles/volume)Ordered By: Maria T Underwoodleena on 09-04-2022 Sodium [Moles/Vol] 138 mmol/L 136-146 [facility] Serum or plasma total biliru bin measurement (mass/volume)Ordered By: Maria T Underwoodleena on 09-04-2022 Bilirubin [Mass/Vol] 0.8 mg/dL 0.3-1.2 [facility] Urea nitrogen [Mass/volume] in Serum or PlasmaOrdered By: Maria T Raquel on 09-04-2022 Urea nitrogen [Mass/Vol] 20 mg/dL 04-13 [facility] WBC Auto (Bld) [#/Vol]Ordere d By: Maria T Underwoodleena on 09-04-2022 WBC (Bld) [#/Vol] 7.1 10*3/uL 4.1-10.5 [facility] PSA, FREE AND TOTAL RATIOon 05-16-2022 % Free PSA 16.0 % Normal [facility] Comment on above: Result Comment: The table below lists the probability of prostate cancer for men with non-suspicious ASTER results and total PSA between 4 and 10 ng/mL, by patient age (Roxi et al, FLETCHER 1998, 279:1542). % Free PSA 50-64 yr 65-75 yr 0.00-10.00% 56% 55% 10.01-15.00% 24% 35% 15.01-20.00% 17% 23% 20.01-25.00% 10% 20% >25.00% 5% 9% Please note: Roxi et al did not make specific recommendations regarding the use of percent free PSA for any other population of men. Performed By: #### P SAFREE #### [facility] [address] [place] [address] Dr. Prem Lyon Prostate specific Ag [Mass/Vol] 3.5 ng/mL Normal 0.0-4.0 [facility] Comment on above: Result Comment: Peyton franco ECLIA methodology. . According to the [employer], Serum PSA should decrease and remain at undetectable levels after radical prostatectomy. The AUA defines biochemical recurrence as an initial PSA value 0.2 ng/mL or greater followed by a subsequent confirmatory PSA value 0.2 ng/mL or greater. Values obtained with different assay methods or kits cannot be used interchangeably. Results cannot be interpreted as absolute evidence of the presence or absence of malignant disease. Performed By: #### P SAFREE #### [facility] [address] [place] [address] Dr. Prem Lyon PSA, Free 0.56 ng/mL Normal N/A [facility] Comment on above: Result Comment: Peyton PEÑAIA methodology. Performed By: #### P SAFREE #### [facility] [address] [place] [address] Dr. Prem Lyon BNPon 05-14-2022 Natriuretic peptide B (Bld) [Mass/Vol] 71.0 pg/mL Normal <=900.0 [facility] Comment on above: Performed By: #### B CLIP LOADING MACHINE ADJUSTER, T7, CMP, LIPID, TSH, URIC ####[facility] [id number] [place] [address]Dr. Prem Lyon CBC AUTO DIFFon 05-14-2022 BASO # 0.0 103/ul Normal 0.0-0.1 [facility] Comment on above: Performed By: #### C BC #### [facility] [address] [place] [address] Dr. Prem Lyon Basophils/100 WBC (Bld) 0.5 % Normal 0.2-2.0 [facility] Comment on above: Performed By: #### C BC #### [facility] [address] [place] [address] Dr. Prem Lyon EO # 0.2 103/ul Normal 0.0-0.7 [facility] Comment on above: Performed By: #### C BC #### [facility] [address] [place] [address] Dr. Prem Lyon Eosinophils/100 WBC (Bld) 3.3 % Normal 0.9-7.0 [facility] Comment on above: Performed By: #### C BC #### [facility] [address] [place] [address] Dr. Prem Lyon Erythrocyte distribution width (RBC) [Ratio] 12.8 % Normal 11.0-15.0 [facility] Comment on above: Performed By: #### C BC #### [facility] [address] [place] [address] Dr. Prem Lyon Hematocrit (Bld) [Volume fraction] 42.4 % Normal 42.0-54.0 [facility] Comment on above: Performed By: #### C BC #### [facility] [address] [place] [address] Dr. Prem Lyon Hemoglobin (Bld) [Mass/Vol] 13.6 g/dL Critically low 14.0-18.0 [facility] Comment on above: Performed By: #### C BC #### [facility] [address] [place] [address] Dr. Prem Lyon IG # 0.02 10e3/ul Normal 0.00-0.03 [facility] Comment on above: Performed By: #### C BC #### [facility] [address] [place] [address] Dr. Prem Lyon IG % 0.3 % Normal 0.0-0.5 [facility] Comment on above: Performed By: #### C BC #### [facility] [address] [place] [address] Dr. Prem Lyon LYMPH # 0.8 103/ul Critically low 1.2-3.8 [facility] Comment on above: Performed By: #### C BC #### [facility] [address] [place] [address] Dr. Prem Lyon Lymphocytes/100 WBC (Bld) 14.0 % Critically low 20.5-60.0 [facility] Comment on above: Performed By: #### C BC #### [facility] [address] [place] [address] Dr. Prem Lyon MANUAL DIFF REQ NO Normal [facility] Comment on above: Performed By: #### C BC #### [facility] [address] [place] [address] Dr. Prem Lyon MCH (RBC) [Entitic mass] 30.2 pg Normal 25.9-34.0 [facility] Comment on above: Performed By: #### C BC #### [facility] [address] [place] [address] Dr. Prem Lyon MCHC (RBC) [Mass/Vol] 32.1 g/dL Normal 29.9-35.2 [facility] Comment on above: Performed By: #### C BC #### [facility] [address] [place] [address] Dr. Prem Lyon MCV (RBC) [Entitic vol] 94.2 fL Critically high 80.0-94.0 [facility] Comment on above: Performed By: #### C BC #### [facility] [address] [place] [address] Dr. Prem Lyon MONO # 0.6 103/ul Normal 0.3-0.8 [facility] Comment on above: Performed By: #### C BC #### [facility] [address] [place] [address] Dr. Prem Lyon Monocytes/100 WBC (Bld) 10.8 % Normal 1.7-12.0 [facility] Comment on above: Performed By: #### C BC #### [facility] [address] [place] [address] Dr. Prem Lyon NEUT # 4.2 103/ul Normal 1.4-6.5 [facility] Comment on above: Performed By: #### C BC #### [facility] [address] [place] [address] Dr. Prem Lyon Neutrophils/100 WBC (Bld) 71.1 % Normal 43.0-75.0 [facility] Comment on above: Performed By: #### C BC #### [facility] [address] [place] [address] Dr. Prem Lyon Platelet mean volume (Bld) [Entitic vol] 10.0 fL Normal 9.5-13.5 [facility] Comment on above: Performed By: #### C BC #### [facility] [address] [place] [address] [address] Prem Lyon PLT 198 103/ul Normal 150-450 [facility] Comment on above: Performed By: #### C BC #### [facility] [address] [place] [address] [address] Prem Lyon RBC 4.50 106/ul Critically low 4.70-6.10 [facility] Comment on above: Performed By: #### C BC #### [facility] [address] [address] [address] Prem Lyon WBC 5.8 103/ul Normal 4.0-11.0 [facility] Comment on above: Performed By: #### C BC #### [facility] [address] [place] [address] [address] Prem Lyon FREE THYROXINE INDEX T7on FTI 2.65 Normal 1.30-4.50 [facility] Comment on above: Performed By: #### B CLIP LOADING MACHINE ADJUSTER, T7, CMP, LIPID, TSH, URIC ####[facility] [id number] [place] [address]Dr. Prem Lyon T3U 34.0 % Normal 33.0-40.0 [facility] Comment on above: Performed By: #### B CLIP LOADING MACHINE ADJUSTER, T7, CMP, LIPID, TSH, URIC ####[facility] [id number] [place] [id number]. Prem Lyon T4 [Mass/Vol] 7.80 ug/dL Normal 4.50-12.10 [facility] Comment on above: Performed By: #### B CLIP LOADING MACHINE ADJUSTER, T7, CMP, LIPID, TSH, URIC ####[facility] [id number] [place] [id number]. Prem Lyon GLYCOHEMOGLOBIN A1Con 2021 ADA RECOMMENDATION SEE BELOW Normal [facility] Comment on above: Result Comment: ADA RECOMMENDED LIMIT 4.0 - 6.0 ADA THERAPEUTIC TARGET < 7.0 ACTION SUGGESTED > 7.0 Performed By: #### A 1C #### [facility] [address] [address] [address] Prem Lyon Glucose [Mass/Vol] 140 mg/dL Normal [facility] Comment on above: Performed By: #### A 1C #### [facility] [address] [place], [place] [address] Dr. Prem Lyon HbA1c (Bld) [Mass fraction] 6.5 % Critically high 4.5-6.2 [facility] Comment on above: Performed By: #### A 1C #### [facility] [address] [address] [address] Prem Lyon LIPID PROFILEon 05-14-2022 CHOL-HDL RATIO NORM SEE BELOW Normal [facility] Comment on above: Result Comment: 3.3 - 4.4 LOW RISK 4.4 - 7.1 AVERAGE RISK 7.1 - 11.0 MODERATE RISK >11.0 HIGH RISK Performed By: #### B CLIP LOADING MACHINE ADJUSTER, T7, CMP, LIPID, TSH, URIC ####[facility] [id number] [place] [id number]. Prem Lyon Cholesterol [Mass/Vol] 191 mg/dL Normal <=200 [facility] Comment on above: Performed By: #### B CLIP LOADING MACHINE ADJUSTER, T7, CMP, LIPID, TSH, URIC ####[facility] [id number] [place] [id number]. Prem Lyon Cholesterol in HDL [Mass/Vol] 43 mg/dL Normal 40-60 [facility] Comment on above: Performed By: #### B CLIP LOADING MACHINE ADJUSTER, T7, CMP, LIPID, TSH, URIC ####[facility] [id number] [place] [id number]. Prem Lyon Cholesterol in LDL [Mass/Vol] 103.0 mg/dL Normal [facility] Comment on above: Performed By: #### B CLIP LOADING MACHINE ADJUSTER, T7, CMP, LIPID, TSH, URIC ####[facility] [id number] [place] [id number]. Prem Lyon Cholesterol.total/Chol esterol in HDL [Mass ratio] 4.4 {ratio} Normal [facility] Comment on above: Performed By: #### B CLIP LOADING MACHINE ADJUSTER, T7, CMP, LIPID, TSH, URIC ####[facility] [id number] [place] [id number] Lyon HDL NORMAL > or = 60 mg/dl - LO W CARDIOVASCULAR RISK <40 mg/dl - HIGH CARDIOVASCULAR RISK Normal [facility] Comment on above: Performed By: #### B CLIP LOADING MACHINE ADJUSTER, T7, CMP, LIPID, TSH, URIC ####[facility] [id number] [place] [address]Dr. Prem Lyon LDL CALC NORMAL SEE BELOW Normal [facility] Comment on above: Result Comment: <100 mg/dl OPTIMAL 100 - 129 mg/dl NEAR OR ABOVE OPTIMAL 130 - 159 mg/dl BORDERLINE HIGH 160 - 189 mg/dl HIGH >190 mg/dl VERY HIGH Performed By: #### B CLIP LOADING MACHINE ADJUSTER, T7, CMP, LIPID, TSH, URIC ####[facility] [id number] [place] [address]DrNavid Lyon Triglyceride [Mass/Vol] 225 mg/dL Critically high <=150 [facility] Comment on above: Performed By: #### B CLIP LOADING MACHINE ADJUSTER, T7, CMP, LIPID, TSH, URIC ####[facility] [id number] [place] [address]DrNavid Lyon VLDL CALC 45.0 mg/dL Normal [facility] Comment on above: Performed By: #### B CLIP LOADING MACHINE ADJUSTER, T7, CMP, LIPID, TSH, URIC ####[facility] [id number] [place] [address]DrNavid Lyon PROF 14(COMP METB)on 022 Albumin [Mass/Vol] 3.7 g/dL Normal 3.4-5.0 [facility] Comment on above: Performed By: #### B CLIP LOADING MACHINE ADJUSTER, T7, CMP, LIPID, TSH, URIC #### [facility] [address] [place] [address] [address] Prem Lyon Albumin/Globulin [Mass ratio] 1.0 {ratio} Normal [facility] Comment on above: Performed By: #### B CLIP LOADING MACHINE ADJUSTER, T7, CMP, LIPID, TSH, URIC #### [facility] [address] [place] [address] [address] Prem Lyon ALP [Catalytic activity/Vol] 72 U/L Normal 46-116 [facility] Comment on above: Performed By: #### B CLIP LOADING MACHINE ADJUSTER, T7, CMP, LIPID, TSH, URIC #### [facility] Laboratory [address] [place] [address] Dr. Prem Lyon ALT [Catalytic activity/Vol] 44 U/L Normal 16-63 [facility] Comment on above: Performed By: #### B CLIP LOADING MACHINE ADJUSTER, T7, CMP, LIPID, TSH, URIC #### [facility] [address] [place] [address] Dr. Prem Lyon Anion gap [Moles/Vol] 11.0 mmol/L Normal Th [facility] Comment on above: Performed By: #### B CLIP LOADING MACHINE ADJUSTER, T7, CMP, LIPID, TSH, URIC #### [facility] [address] [place] [address] Dr. Prem Lyon AST [Catalytic activity/Vol] 27 U/L Normal 15-37 [facility] Comment on above: Performed By: #### B CLIP LOADING MACHINE ADJUSTER, T7, CMP, LIPID, TSH, URIC #### [facility] [address] [place] [address] Dr. Prem Lyon Bilirubin [Mass/Vol] 0.5 mg/dL Normal 0.2-1.0 [facility] Comment on above: Performed By: #### B CLIP LOADING MACHINE ADJUSTER, T7, CMP, LIPID, TSH, URIC #### [facility] [address] [place] [address] Dr. Prem Lyon Calcium [Mass/Vol] 9.5 mg/dL Normal 8.5-10.1 [facility] Comment on above: Performed By: #### B CLIP LOADING MACHINE ADJUSTER, T7, CMP, LIPID, TSH, URIC #### [facility] [address] [place] [address] Dr. Prem Lyon Chloride [Moles/Vol] 103 mmol/L Normal 98-107 [facility] Comment on above: Performed By: #### B CLIP LOADING MACHINE ADJUSTER, T7, CMP, LIPID, TSH, URIC #### [facility] [address] [place] [address] Dr. Prem Lyon CO2 [Moles/Vol] 29.4 mmol/L Normal 21.0-32.0 [facility] Comment on above: Performed By: #### B CLIP LOADING MACHINE ADJUSTER, T7, CMP, LIPID, TSH, URIC #### [facility] [address] [place] [address] Dr. Prem Lyon Creatinine [Mass/Vol] 1.10 mg/dL Normal 0.70-1.30 [facility] Comment on above: Performed By: #### B CLIP LOADING MACHINE ADJUSTER, T7, CMP, LIPID, TSH, URIC #### [facility] [address] [place] [address] Dr. Prem Lyon EGFR-AF PARAGUAYAN >60 Normal >=60 [facility] Comment on above: Performed By: #### B CLIP LOADING MACHINE ADJUSTER, T7, CMP, LIPID, TSH, URIC #### [facility] [address] [place] [address] Dr. Prem Lyon EGFR-NON AF PARAGUAYAN >60 Normal >=60 [facility] Comment on above: Performed By: #### B CLIP LOADING MACHINE ADJUSTER, T7, CMP, LIPID, TSH, URIC #### [facility] [address] [place] [address] Dr. Prem Lyon Globulin (S) [Mass/Vol] 3.7 g/dL Normal [facility] Comment on above: Performed By: #### B CLIP LOADING MACHINE ADJUSTER, T7, CMP, LIPID, TSH, URIC #### [facility] [address] [place] [address] Dr. Prem Lyon Glucose [Mass/Vol] 137 mg/dL Critically high 74-106 T [facility] Comment on above: Performed By: #### B CLIP LOADING MACHINE ADJUSTER, T7, CMP, LIPID, TSH, URIC #### [facility] [address] [place] [address] Dr. Prem Lyon Potassium [Moles/Vol] 4.4 mmol/L Normal 3.5-5.1 [facility] Comment on above: Performed By: #### B CLIP LOADING MACHINE ADJUSTER, T7, CMP, LIPID, TSH, URIC #### [facility] [address] [place] [address] Dr. Prem Lyon Protein [Mass/Vol] 7.4 g/dL Normal 6.4-8.2 [facility] Comment on above: Performed By: #### B CLIP LOADING MACHINE ADJUSTER, T7, CMP, LIPID, TSH, URIC #### [facility] [address] [address] [address] Prem Lyon Sodium [Moles/Vol] 139 mmol/L Normal 136-145 [facility] Comment on above: Performed By: #### B CLIP LOADING MACHINE ADJUSTER, T7, CMP, LIPID, TSH, URIC #### [facility] [address] [address] [address] Prem Lyon Urea nitrogen [Mass/Vol] 13.0 mg/dL Normal 7.0-18.0 [facility] Comment on above: Performed By: #### B CLIP LOADING MACHINE ADJUSTER, T7, CMP, LIPID, TSH, URIC #### [facility] [address] [place] [address] Dr. Prem Lyon Urea nitrogen/Creatinine [Mass ratio] 11.8 mg/mg Normal [facility] Comment on above: Performed By: #### B CLIP LOADING MACHINE ADJUSTER, T7, CMP, LIPID, TSH, URIC #### [facility] [address] [place] [address] Dr. Prem Lyon TSHon 05-14-2022 TSH 2.083 uIU/mL Normal 0.358-3.74 0 [facility] Comment on above: Performed By: #### B CLIP LOADING MACHINE ADJUSTER, T7, CMP, LIPID, TSH, URIC #### [facility] [address] [place] [address] Dr. Prem Lyon URIC ACID SERUMon 05-14-2022 Urate [Mass/Vol] 5.8 mg/dL Normal 3.5-7.2 [facility] Comment on above: Performed By: #### B CLIP LOADING MACHINE ADJUSTER, T7, CMP, LIPID, TSH, URIC #### [facility] [address] [place] [address] Dr. Prem Lyon Basophils Auto (Bld) [#/Vol] Ordered By: John Johnson on 12-25-2021 Basophils (Bld) [#/Vol] 0.0 10*3/uL 0.0-0.2 [facility] Basophils/100 WBC Auto (Bld) Ordered By: John Johnson on 12-25-2021 Basophils/100 WBC (Bld) 0.7 % . [facility] Blood hemoglobin measurement (mass/volume)Ordered By: John Johnson on 12-25-2021 Hemoglobin (Bld) [Mass/Vol] 13.6 g/dL 13.0-17.0 [facility] Blood leukocytes automated c ount (number/volume)Ordered By: John Johnson on 12-25-2021 WBC (Bld) [#/Vol] 4.4 10*3/uL 4.5-11.0 [facility] Body fluid albumin measureme nt (mass/volume)Ordered By: John Johnson on 12-25-2021 Albumin (Body fld) [Mass/Vol] 3.8 g/dL 3.2-5.5 [facility] Creatinine and Glomerular fi ltration rate.predicted panel (S/P/Bld)Ordered By: John Johnson on 12-25-2021 Creatinine [Mass/Vol] 1.00 mg/dL 0.64-1.27 [facility] Eosinophils Auto (Bld) [#/Vo l]Ordered By: John Johnson on 12-25-2021 Eosinophils (Bld) [#/Vol] 0.1 10*3/uL 0.0-0.45 [facility] Eosinophils/100 WBC Auto (Bl d)Ordered By: John Johnson on 12-25-2021 Eosinophils/100 WBC (Bld) 3.2 % . [facility] Erythrocyte distribution wid th Auto (RBC) [Ratio]Ordered By: John Johnson on 12-25-2021 Erythrocyte distribution width (RBC) [Ratio] 14.2 % 12.0-14.8 [facility] Estimated glomerular filtrat ion rate (GFR) non- AmericanOrdered By: John Johnson on 12-25-2021 GFR/1.73 sq M.predicted among non-blacks MDRD (S/P/Bld) [Vol rate/Area] > 60 mL/Min [facility] Globulin Calc (S) [Mass/Vol] Ordered By: John Johnson on 12-25-2021 Globulin (S) [Mass/Vol] 3.1 g/dL [facility] Hematocrit Auto (Bld) [Volum e fraction]Ordered By: John Johnson on 12-25-2021 Hematocrit (Bld) [Volume fraction] 40.6 % 38.8-50.0 [facility] Laboratory - Hematology and Cell countsOrdered By: John Johnson on 12-25-2021 Nucleated RBC/100 WBC (Bld) [Ratio] 0.0 % 0-0.5 [facility] Lymphocytes Auto (Bld) [#/Vo l]Ordered By: John Johnson on 12-25-2021 Lymphocytes (Bld) [#/Vol] 0.6 10*3/uL 1.00-4.8 [facility] Lymphocytes/100 WBC Auto (Bl d)Ordered By: John Johnson on 12-25-2021 Lymphocytes/100 WBC (Bld) 13.2 % . [facility] MCH Auto (RBC) [Entitic mass ]Ordered By: John Johnson on 12-25-2021 MCH (RBC) [Entitic mass] 33.2 pg 27.5-35.2 [facility] MCHC Auto (RBC) [Mass/Vol]Or dered By: John Johnson on 12-25-2021 MCHC (RBC) [Mass/Vol] 33.6 g/dL 32.5-35.6 [facility] MCV Auto (RBC) [Entitic vol] Ordered By: John Johnson on 12-25-2021 MCV (RBC) [Entitic vol] 98.9 fL 83.5-101 [facility] Monocytes Auto (Bld) [#/Vol] Ordered By: John Johnson on 12-25-2021 Monocytes (Bld) [#/Vol] 0.6 10*3/uL 0.0-0.8 [facility] Monocytes/100 WBC Auto (Bld) Ordered By: John Johnson on 12-25-2021 Monocytes/100 WBC (Bld) 13.3 % . [facility] Neutrophils Auto (Bld) [#/Vo l]Ordered By: John Johnson on 12-25-2021 Neutrophils (Bld) [#/Vol] 3.1 10*3/uL 1.8-7.7 [facility] Neutrophils/100 WBC Auto (Bl d)Ordered By: John Johnson on 12-25-2021 Neutrophils/100 WBC (Bld) 69.6 % . [facility] No Panel InformationOrdered By: John Johnson on 12-25-2021 Estimated GFR () > 60 mL/Min [facility] Comment on above: GFR estimated refere nce range: According to KDOQI guidelines, <60 ml/min/1.73m2 is sufficient to diagnose a patient with chronic kidney disease. Pharmacy Creatinine Clearance (Chem N/A [facility] Platelet mean volume Auto (B ld) [Entitic vol]Ordered By: John Johnson on 12-25-2021 Platelet mean volume (Bld) [Entitic vol] 9.0 fL 6.6-10.1 [facility] Platelets Auto (Bld) [#/Vol] Ordered By: John Johnson on 12-25-2021 Platelets (Bld) [#/Vol] 184 10*3/uL 150-450 [facility] Protein [Mass/volume] in Ser um or PlasmaOrdered By: John Johnson on 12-25-2021 Protein [Mass/Vol] 6.9 g/dL 6.1-7.9 [facility] RBC Auto (Bld) [#/Vol]Ordere d By: John Johnson on 12-25-2021 RBC (Bld) [#/Vol] 4.10 10*6/uL 3.90-5.60 [facility] Serum or plasma alanine johnson otransferase measurement without P-5'-P (enzymatic activiOrdered By: John Johnson on 12-25-2021 ALT No additional P-5'-P [Catalytic activity/Vol] 39 U/L 10-60 [facility] Serum or plasma albumin/glob ulin mass ratioOrdered By: John Johnson on 12-25-2021 Albumin/Globulin [Mass ratio] 1.2 {ratio} [facility] Serum or plasma alkaline amanda sphatase measurement (enzymatic activity/volume)Ordered By: John Johnson on 12-25-2021 ALP [Catalytic activity/Vol] 57 U/L 32-92 [facility] Serum or plasma aspartate am inotransferase measurement (enzymatic activity/volume)Ordered By: John Johnson on 12-25-2021 AST [Catalytic activity/Vol] 39 U/L 10-42 [facility] Serum or plasma calcium rema urement (mass/volume)Ordered By: John Johnson on 12-25-2021 Calcium [Mass/Vol] 9.8 mg/dL 8.2-10.2 [facility] Serum or plasma chloride ronan surement (moles/volume)Ordered By: John Johnson on 12-25-2021 Chloride [Moles/Vol] 106 mmol/L 95-114 [facility] Serum or plasma glucose rema urement (mass/volume)Ordered By: John Johnson on 12-25-2021 Glucose [Mass/Vol] 120 mg/dL 70-100 [facility] Comment on above: ADA recommended refe rence range Random Glucose Reference Range is dependent on time and content of last meal. Glucose of more than 200 mg/dL in a nonstressed, ambulatory subject supports the diagnosis of Diabetes Mellitus. Serum or plasma potassium me asurement (moles/volume)Ordered By: John Johnson on 12-25-2021 Potassium [Moles/Vol] 4.4 mmol/L 3.5-5.1 [facility] Serum or plasma sodium measu rement (moles/volume)Ordered By: John Johnson on 12-25-2021 Sodium [Moles/Vol] 141 mmol/L 136-146 [facility] Serum or plasma total biliru bin measurement (mass/volume)Ordered By: John Johnson on 12-25-2021 Bilirubin [Mass/Vol] 0.7 mg/dL 0.3-1.2 [facility] Serum or plasma total carbon dioxide measurement (moles/volume)Ordered By: John Johnson on 12-25-2021 CO2 [Moles/Vol] 23.3 mmol/L 22.0-30.0 [facility] Serum or plasma urea nitroge n measurement (mass/volume)Ordered By: John Johnson on 12-25-2021 Urea nitrogen [Mass/Vol] 20 mg/dL 04-13 [facility] Comprehensive Metabolic Pane yao 08-16-2021 Albumin [Mass/Vol] 3.7 g/dL 3.2-5.5 [facility] Other Albumin/Globulin [Mass ratio] 1.4 {ratio} [facility] ASYM III Other ALP [Catalytic activity/Vol] 46 U/L 32-92 [facility] ASYM III Other ALT [Catalytic activity/Vol] 49 U/L 10-60 [facility] ASYM III Other AST [Catalytic activity/Vol] 32 U/L 10-42 [facility] ASYM III Other Bilirubin [Mass/Vol] 0.9 mg/dL 0.3-1.2 [facility] ASYM III Other Calcium [Mass/Vol] 9.9 mg/dL 8.2-10.2 [facility] ASYM III Other Chloride [Moles/Vol] 104 mmol/L 95-114 [facility] ASYM III Other CO2 [Moles/Vol] 25.2 mmol/L 22.0-30.0 [facility] ASYM III Other Creatinine [Mass/Vol] 1.06 mg/dL 0.64-1.[address] [facility] ASYM III Other Glucose [Mass/Vol] 100 mg/dL 70-100 [facility] ASYM III Other Potassium [Moles/Vol] 4.7 mmol/L 3.5-5.[address] [facility] ASYM III Other Protein [Mass/Vol] 6.4 g/dL 6.1-7.9 [facility] ASYM III Other Sodium [Moles/Vol] 140 mmol/L 136-146 [facility] ASYM III Other Urea nitrogen [Mass/Vol] 19 mg/dL 9-23 [facility] ASYM III Other Comprehensive Metabolic Panel > 60 [facility] ASYM III Other Comprehensive Metabolic Panel 2.7 [facility] ASYM III Other Laboratory - Hematology and Cell countsOrdered By: Chana Matthews on 08-16-2021 Nucleated RBC/100 WBC (Bld) [Ratio] 0.1 % 0-0.5 [facility] PSA SCREENING LABCORPon 06-21 Prostate specific Ag [Mass/Vol] 3.8 ng/mL Normal 0.0-4.0 [facility] Comment on above: Result Comment: Peyton MOORE methodology. . According to the [employer], Serum PSA should decrease and remain at undetectable levels after radical prostatectomy. The AUA defines biochemical recurrence as an initial PSA value 0.2 ng/mL or greater followed by a subsequent confirmatory PSA value 0.2 ng/mL or greater. Values obtained with different assay methods or kits cannot be used interchangeably. Results cannot be interpreted as absolute evidence of the presence or absence of malignant disease. Performed By: #### P SASCLC #### [facility] Laboratory [address] [place] [address] Dr. Prem Lyon XR KUB 1 VIEWon 07-03-2021 XR KUB 1 VIEW EXAMINATION: XR KUB 1 VIEW HISTORY: Kidney stone follow-up COMPARISON: XR KUB 09/27/2020 FINDINGS: KIDNEY/URETER - RIGHT: No visible renal or ureteral calcifications. KIDNEY/URETER - LEFT: No visible renal or ureteral calcifications. PELVIS: No visible ureteral stones. BOWEL: No abnormal dilation or deviation. BONES: No acute abnormality. OTHER: Negative. No abnormal gaseous collections. IMPRESSION: 1. No visible urinary tract calculi. 2. Previously seen lower right pelvic calcification is no longer present and may have represented a distal ureteral stone. Electronically authenticated by: NATHALIA GATES Date: 2021-07-03 12:59 Normal [facility] COVID-19 SOFIAon 11-22-2020 SARS-CoV+SARS-CoV-2 (COVID-19) Ag IA.rapid Ql (Resp) Negative Negative [facility] Comment on above: This is a duplicate Janette SARS Antigen (KEELY) result to be used for statistical tracking purpose only. No Panel Informationon 11-22 SARS Antigen (LFIA) [facility] Basophils Auto (Bld) [#/Vol] on 08-12-2020 Basophils (Bld) [#/Vol] 0.0 10*3/uL 0.0-0.2 [facility] Basophils/100 WBC Auto (Bld) on 08-12-2020 Basophils/100 WBC (Bld) 0.9 % [facility] Blood hemoglobin measurement (mass/volume)on 08-12-2020 Hemoglobin (Bld) [Mass/Vol] 13.5 g/dL 13.0-17.0 [facility] Blood leukocytes automated c ount (number/volume)on 08-12-2020 WBC (Bld) [#/Vol] 3.9 10*3/uL 4.5-11.0 [facility] Eosinophils Auto (Bld) [#/Vo l]on 08-12-2020 Eosinophils (Bld) [#/Vol] 0.1 10*3/uL 0.0-0.45 [facility] Eosinophils/100 WBC Auto (Bl d)on 08-12-2020 Eosinophils/100 WBC (Bld) 3.3 % [facility] Erythrocyte distribution wid th Auto (RBC) [Ratio]on 08-12-2020 Erythrocyte distribution width (RBC) [Ratio] 15.3 % 12.0-14.8 [facility] Hematocrit Auto (Bld) [Volum e fraction]on 08-12-2020 Hematocrit (Bld) [Volume fraction] 40.5 % 38.8-50.0 [facility] Laboratory - Hematology and Cell countson 08-12-2020 Nucleated RBC/100 WBC (Bld) [Ratio] 0.1 % 0-0.5 [facility] Lymphocytes Auto (Bld) [#/Vo l]on 08-12-2020 Lymphocytes (Bld) [#/Vol] 0.3 10*3/uL 1.00-4.8 [facility] Lymphocytes/100 WBC Auto (Bl d)on 08-12-2020 Lymphocytes/100 WBC (Bld) 9.0 % [facility] MCH Auto (RBC) [Entitic mass ]on 08-12-2020 MCH (RBC) [Entitic mass] 33.7 pg 27.5-35.2 [facility] MCHC Auto (RBC) [Mass/Vol]on 08-12-2020 MCHC (RBC) [Mass/Vol] 33.3 g/dL 32.5-35.6 [facility] MCV Auto (RBC) [Entitic vol] on 08-12-2020 MCV (RBC) [Entitic vol] 101.3 fL 83.5-101 [facility] Monocytes Auto (Bld) [#/Vol] on 08-12-2020 Monocytes (Bld) [#/Vol] 0.3 10*3/uL 0.0-0.8 [facility] Monocytes/100 WBC Auto (Bld) on 08-12-2020 Monocytes/100 WBC (Bld) 8.7 % [facility] Neutrophils Auto (Bld) [#/Vo l]on 08-12-2020 Neutrophils (Bld) [#/Vol] 3.0 10*3/uL 1.8-7.7 [facility] Neutrophils/100 WBC Auto (Bl d)on 08-12-2020 Neutrophils/100 WBC (Bld) 78.1 % [facility] Platelet mean volume Auto (B ld) [Entitic vol]on 08-12-2020 Platelet mean volume (Bld) [Entitic vol] 8.8 fL 6.6-10.1 [facility] Platelets Auto (Bld) [#/Vol] on 08-12-2020 Platelets (Bld) [#/Vol] 222 10*3/uL 150-450 [facility] RBC Auto (Bld) [#/Vol]on RBC (Bld) [#/Vol] 4.00 10*6/uL 3.90-5.60 [facility] CT biopsyon 02-16-2020 Transferrin [Mass/Vol] 259 mg/dL 180-380 [facility] Ferritin [Mass/volume] in Se rum or Plasmaon 02-16-2020 Ferritin [Mass/Vol] 125.1 ng/mL 23.9-336.2 [facility] Folate [Mass/volume] in Seru m or Plasmaon 02-16-2020 Folate [Mass/Vol] 6.6 ng/mL [facility] Comment on above: Folate reference ran ge: >5.9 ng/mlThe WHO technical consultation on folate and vitamin [id number] has determined that folate concentrations lessthan 4 ng/ml are considered deficient. Iron [Mass/volume] in Serum or Plasmaon 02-16-2020 Iron [Mass/Vol] 96 ug/dL 40-160 [facility] Iron binding capacity [Mass/ volume] in Serum or Plasmaon 02-16-2020 Iron binding capacity [Mass/Vol] 363 ug/dL 255-450 [facility] Iron saturation [Mass Fracti on] in Serum or Plasmaon 02-16-2020 Iron saturation [Mass fraction] 26.0 % 20-50 [facility] Laboratory - Chemistry and C hemistry - challengeon 02-16-2020 Cobalamin (Vitamin B12) [Mass/Vol] 2558 pg/mL 180-914 [facility] Laboratory - Hematology and Cell countson 02-16-2020 WBC (Bld) [#/Vol] 4.0 10*3/uL 4.5-11.0 [facility] Body fluid albumin measureme nt (mass/volume)on 08-17-2019 Albumin (Body fld) [Mass/Vol] 3.8 g/dL 3.2-5.5 [facility] Creatinine and Glomerular fi ltration rate.predicted panel (S/P/Bld)on 08-17-2019 Creatinine [Mass/Vol] 1.15 mg/dL 0.64-1.27 [facility] Estimated glomerular filtrat ion rate (GFR) non- Americanon 08-17-2019 GFR/1.73 sq M.predicted among non-blacks MDRD (S/P/Bld) [Vol rate/Area] mL/min/{1.73_m2} [facility] Globulin Calc (S) [Mass/Vol] on 08-17-2019 Globulin (S) [Mass/Vol] 2.7 g/dL [facility] Haptoglobin [Mass/volume] in Serum or Plasmaon 08-17-2019 Haptoglobin [Mass/Vol] 178 mg/dL 37-246 [facility] - Chemistry and C hemistry - challengeon 08-17-2019 GFR/1.73 sq M.predicted MDRD (S/P/Bld) [Vol rate/Area] mL/min/{1.73_m2} [facility] Comment on above: GFR estimated refere nce range: According to KDOQI guidelines, <60 ml/min/1.73m2 is sufficient to diagnose a patient with chronic kidney disease. Lactate dehydrogenase measur ement (enzymatic activity/volume)on 08-17-2019 LDH (Unsp spec) [Catalytic activity/Vol] 177 U/L 45-190 [facility] No Panel Informationon 08-17 Absolute Reticulocyte Count 0.067 10*6/uL 0.024-0.08 4 [facility] Percent Reticulocyte Count 1.8 % 0.5-1.5 [facility] Creatinine Clearance (Chem [id number] [facility] Protein [Mass/volume] in Ser um or Plasmaon 08-17-2019 Protein [Mass/Vol] 6.5 g/dL 6.1-7.9 [facility] Serum or plasma alanine johnson otransferase measurement without P-5'-P (enzymatic activion 08-17-2019 ALT No additional P-5'-P [Catalytic activity/Vol] 43 U/L 10-60 [facility] Serum or plasma albumin/glob ulin mass ratioon 08-17-2019 Albumin/Globulin [Mass ratio] 1.4 {ratio} [facility] Serum or plasma alkaline amanda sphatase measurement (enzymatic activity/volume)on 08-17-2019 ALP [Catalytic activity/Vol] 46 U/L 32-92 [facility] Serum or plasma aspartate am inotransferase measurement (enzymatic activity/volume)on 08-17-2019 AST [Catalytic activity/Vol] 28 U/L 10-42 [facility] Serum or plasma calcium rema urement (mass/volume)on 08-17-2019 Calcium [Mass/Vol] 9.7 mg/dL 8.2-10.2 [facility] Serum or plasma chloride ronan surement (moles/volume)on 08-17-2019 Chloride [Moles/Vol] 102 mmol/L 95-114 [facility] Serum or plasma glucose rema urement (mass/volume)on 08-17-2019 Glucose [Mass/Vol] 120 mg/dL 70-100 [facility] Comment on above: ADA recommended refe rence rangeRandom Glucose Reference Range is dependent on time and content of last meal. Glucose of more than 200 mg/dL in a nonstressed, ambulatory subject supports the diagnosis of Diabetes Mellitus. Serum or plasma potassium me asurement (moles/volume)on 08-17-2019 Potassium [Moles/Vol] 4.4 mmol/L 3.5-5.1 [facility] Serum or plasma sodium measu rement (moles/volume)on 08-17-2019 Sodium [Moles/Vol] 140 mmol/L 136-146 [facility] Serum or plasma total biliru bin measurement (mass/volume)on 08-17-2019 Bilirubin [Mass/Vol] 0.5 mg/dL 0.3-1.2 [facility] Serum or plasma total carbon dioxide measurement (moles/volume)on 08-17-2019 CO2 [Moles/Vol] 27.6 mmol/L 22.0-30.0 [facility] Serum or plasma urea nitroge n measurement (mass/volume)on 08-17-2019 Urea nitrogen [Mass/Vol] 15 mg/dL 9-23 [facility] Albumin [Mass/volume] in Ser um or Plasmaon 01-19-2019 Albumin [Mass/Vol] 3.8 g/dL 2.9-4.4 [facility] IgA [Mass/volume] in Serum o r Plasmaon 01-19-2019 IgA [Mass/Vol] 310 mg/dL 61-437 [facility] IgG [Mass/volume] in Serum o r Plasmaon 01-19-2019 IgG [Mass/Vol] 818 mg/dL 700-1600 [facility] IgM [Mass/volume] in Serum o r Plasmaon 01-19-2019 IgM [Mass/Vol] 36 mg/dL 20-172 [facility] Comment on above: Performed at: [facility] [address] [id number] Director: Mike Trinh PhD, Phone: [phone] Immunoglobulin light chains. kappa.free [Mass/volume] in Serumon 01-19-2019 Immunoglobulin light chains.kappa.free (S) [Mass/Vol] 21.5 mg/L 3.3-19.4 [facility] Immunoglobulin light chains. kappa.free/Immunoglobulin light chains.lambda.free [Wen 01-19-2019 Immunoglobulin light chains.kappa.free/Immu noglobulin light chains.lambda.free (S) [Mass ratio] 1.30 0.26-1.65 [facility] Comment on above: Performed at: [facility] [address] [id number] Director: Mike Trinh PhD, Phone: [phone] Immunoglobulin light chains. lambda.free [Mass/volume] in Serum or Plasmaon 01-19-2019 Immunoglobulin light chains.lambda.free [Mass/Vol] 16.6 mg/L 5.7-26.3 [facility] No Panel Informationon 01-19 [facility] Flow Cytometry See comment [facility] Comment on above: See report. Scanned copy available in EMR. Protein Electrophoresis M-Wilmer Not observed g/dL Not Observed [facility] Protein Electrophoresis Note See comment . [facility] Comment on above: Protein electrophore sis scan will follow via computer,mail, or hand alterations seamstress delivery.Performed at: [facility] [address] [id number] Director: Mike Trinh PhD, Phone: [phone] Serum Immunofixation See comment . [facility] Comment on above: No monoclonality det ected. Protein [Mass/volume] in Ser um or Plasmaon 01-19-2019 Protein [Mass/Vol] 7.2 g/dL 6.0-8.5 [facility] Serum globulin measurement ( mass/volume)on 01-19-2019 Globulin (S) [Mass/Vol] 3.4 g/dL 2.2-3.9 [facility] Serum intrinsic factor block ing antibody detection by radioimmunoassay (RC)on 01-19-2019 Intrinsic factor blocking Ab RC Ql (S) 0.9 AU/mL 0.0-1.1 [facility] Comment on above: Performed at: [facility] [address] [id number] Director: Mary Torres MD, Phone: [phone] Serum or plasma albumin/glob ulin mass ratioon 01-19-2019 Albumin/Globulin [Mass ratio] 1.1 {ratio} 0.7-1.7 [facility] Serum or plasma alpha 1 glob ulin measurement by electrophoresis (mass/volume)on 01-19-2019 Alpha 1 globulin Elph [Mass/Vol] 0.3 g/dL 0.0-0.4 [facility] Serum or plasma alpha 2 glob ulin measurement by electrophoresis (mass/volume)on 01-19-2019 Alpha 2 globulin Elph [Mass/Vol] 1.1 g/dL 0.4-1.0 [facility] Serum or plasma beta globuli n measurement by electrophoresis (mass/volume)on 01-19-2019 Beta globulin Elph [Mass/Vol] 1.3 g/dL 0.7-1.3 [facility] Serum or plasma gamma globul in measurement by electrophoresis (mass/volume)on 01-19-2019 Gamma globulin Elph [Mass/Vol] 0.7 g/dL 0.4-1.8 [facility] Serum or plasma gastrin rema urement (mass/volume)on 01-19-2019 Gastrin [Mass/Vol] 285 pg/mL 0-115 [facility] Comment on above: Siemens Immulite 200 0 Immunochemiluminometric assay (ICMA)Values obtained with different assay methods or kits cannotbe used interchangeably. Results cannot be interpreted asabsolute evidence of the presence or absence of malignantdisease.Performed at: [facility] [address] [id number] Director: Mary Torres MD, Phone: [phone] Serum parietal cell antibody assay (units/volume)on 01-19-2019 Parietal cell Ab Qn (S) 6.9 Units 0.0-20.0 [facility] Comment on above: Negative 0.0 - 20.0 Equivocal 20.1 - 24.9 Positive >24.9Parietal Cell Antibodies are found in 90% of patientswith pernicious anemia and 30% of first degreerelatives with pernicious anemia.Performed at: [facility] [id number] Director: Mike Trinh PhD, Phone: [phone] Vital Signs Date Time Vital Sign Value Performing Clinician Facility 01-23-2023 13:20-0400 Blood Pressure Location ELOISE SALAZAR [facility] 01-23-2023 13:20-0400 Diastolic blood pressure 70 mm[Hg] ELOISE MARIE [facility] 01-23-2023 13:20-0400 Heart rate 68 /min ELOISE MARIE [facility] 01-23-2023 13:20-0400 Respiratory rate 16 /min ELOISE MARIE [facility] 01-23-2023 13:20-0400 Systolic blood pressure 128 mm[Hg] ELOISE MARIE [facility] 09-12-2022 09:46-0500 Body temperature 97 [degF] MD Rafael Kumar Work Phone: [facility] 09-12-2022 09:46-0500 Body weight 91.4 kg MD Rafael Kumar Work Phone: [facility] 09-12-2022 09:46-0500 Diastolic blood pressure 92 mm[Hg] MD Rafael Kumar Work Phone: [facility] 09-12-2022 09:46-0500 Heart rate 80 /min MD Rafael Kumar Work Phone: [facility] 09-12-2022 09:46-0500 Respiratory rate 16 /min MD Rafael Kumar Work Phone: [facility] 09-12-2022 09:46-0500 SaO2% (BldA) [Mass fraction] 98 % MD Rafael Kumar Work Phone: [facility] 09-12-2022 09:46-0500 Systolic blood pressure 167 mm[Hg] MD Rafael Kumar Work Phone: [facility] 02-14-2022 11:30-0400 Body height 182.88 cm John Johnson Other [facility] Other 02-14-2022 11:30-0400 Body mass index (BMI) [Ratio] 24.95 kg/m2 John Johnson Other [facility] Other 02-14-2022 11:30-0400 Body weight 83.46 kg John Johnson Other [facility] Other 02-14-2022 11:30-0400 Diastolic blood pressure 90 mm[Hg] John Johnson Other [facility] Other 02-14-2022 11:30-0400 Systolic blood pressure 142 mm[Hg] John Johnson Other [facility] Other 02-14-2022 10:22-0400 Body weight 0 kg MD Rafael Kumar Work Phone: [facility] 01-09-2022 08:47-0400 Blood Pressure Location Giovany Pak Jr. [facility] 01-09-2022 08:47-0400 Diastolic blood pressure 79 mm[Hg] Giovany Pak Jr. [facility] 01-09-2022 08:47-0400 Heart rate 74 /min Giovany Pak Jr. [facility] 01-09-2022 08:47-0400 Respiratory rate 16 /min Giovany Pak Jr. [facility] 01-09-2022 08:47-0400 Systolic blood pressure 129 mm[Hg] Giovany Pak Jr. [facility] 11-15-2021 11:15-0400 Body height 182.88 cm John Johnson Other [employer] [facility] Other 11-15-2021 11:15-0400 Body mass index (BMI) [Ratio] 26.04 kg/m2 John Johnson Other [facility] Other 11-15-2021 11:15-0400 Body weight 87.09 kg John Johnson Other [facility] Other 11-15-2021 11:15-0400 Diastolic blood pressure 80 mm[Hg] John Johnson Other [facility] Other 11-15-2021 11:15-0400 Systolic blood pressure 147 mm[Hg] John Johnson Other [facility] Other 09-15-2021 11:30-0500 Body height 180.01 cm MD Rafael Kumar Work Phone: [facility] 08-16-2021 10:15-0500 Body height 182.88 cm John Johnson Other [facility] Other 08-16-2021 10:15-0500 Body mass index (BMI) [Ratio] 26.17 kg/m2 John Johnson Other [facility] Other 08-16-2021 10:15-0500 Body weight 87.54 kg John Johnson Other [facility] Other 06-27-2021 15:30-0500 Body height 182.88 cm John Johnson Other [facility] Other 06-27-2021 15:30-0500 Body mass index (BMI) [Ratio] 26.44 kg/m2 John Johnson Other [facility] Other 06-27-2021 15:30-0500 Body weight 88.45 kg John Johnson Other [employer] [facility] Other 08-25-2020 09:02-0500 Body height 180.01 cm M Rafael [employer] Work Phone: [facility] 08-25-2020 09:02-0500 Body temperature 97.4 [degF] M Rafael Hoy Work Phone: [facility] 08-25-2020 09:02-0500 Body weight 89.4 kg M Rafael Hoy Work Phone: [facility] 08-25-2020 09:02-0500 Diastolic blood pressure 83 mm[Hg] M Rafael Hoy Work Phone: [facility] 08-25-2020 09:02-0500 Heart rate 106 /min M Rafael Hoy Work Phone: [facility] 08-25-2020 09:02-0500 Respiratory rate 20 /min M Rafael Hoy Work Phone: [facility] 08-25-2020 09:02-0500 SaO2% (BldA) [Mass fraction] 96 % M Rafael Hoy Work Phone: [facility] 08-25-2020 09:02-0500 Systolic blood pressure 138 mm[Hg] M Rafael Hoy Work Phone: [facility] Encounters Encounter Date Encounter Type Care Provider Facility Start: 02-04-2024 ambulatory ELOISE Garland ty:AKOSUA Olivares Start: 01-09-2024 End: 01-09-2024 Patient encounter procedure MD Rafael Kumar Work Phone: [facility] Work Phone: Start: 01-09-2024 End: 01-09-2024 ambulatory MD Rafael Kumar Work Phone: [facility] Work Phone: Start: 01-23-2023 End: 01-24-2023 ambulatory ELOISE SALAZAR Facility: [facility] Start: 01-23-2023 End: 01-23-2023 Patient encounter procedure ELOISE Salvador MARIE [facility] Start: 12-03-2022 End: 12-03-2022 ambulatory MD Rafael Kumar Work Phone: [facility] Work Phone: Start: 12-03-2022 End: 12-03-2022 Patient encounter procedure MD Rafael Kumar Work Phone: [facility] Work Phone: Start: 09-12-2022 End: 09-12-2022 ambulatory MD Rafael Kumar Work Phone: [facility] Work Phone: Start: 09-12-2022 End: 09-12-2022 Registered Recurring MD Rafael Kumar Work Phone: [facility] Work Phone: Start: 05-25-2022 End: 05-25-2022 ambulatory MD Rafael Kumar Work Phone: [facility] Work Phone: Start: 05-25-2022 End: 05-25-2022 Patient encounter procedure MD Rafael Kumar Work Phone: [facility] Start: 05-14-2022 End: 05-15-[address] RAFAEL KUMAR Facility:[facility] Start: 02-21-2022 End: 02-21-2022 Patient encounter procedure MD Rafael Kumar Work Phone: [facility] Start: 02-14-2022 End: 02-14-2022 ambulatory John Johnson Other [facility] Other Start: 02-14-2022 Patient encounter procedure John Johnson [facility] Start: 01-09-2022 End: 01-09-2022 Patient encounter procedure Giovany Pak Jr. [facility] Start: 01-01-2022 End: 01-02-[address] GIOVANY PAK JR Facility:[facility] Start: 12-25-2021 End: 12-25-2021 Patient encounter procedure MD Rafael Kumar Work Phone: [facility] Start: 11-15-2021 End: 11-15-2021 ambulatory John Johnson Other [facility] Other Start: 11-15-2021 Office outpatient visit 15 minutes John Johnson [facility] Start: 08-16-2021 End: 08-16-2021 ambulatory John Johnson Other [facility] Other Start: 08-16-2021 Office outpatient visit 25 minutes John Johnson [facility] Start: 07-03-2021 End: 07-04-[address] DOCTOR FREEDMAN Facility:[facility] Start: 06-27-2021 Office outpatient visit 25 minutes John Johnson [facility] Start: 06-27-2021 End: 06-28-2021 ambulatory KARLA GALEANO [facility] Other Start: 11-22-2020 End: 11-22-2020 Patient encounter procedure Po Kumar Work Phone: -Pre-Surgical Testing Start: 08-25-2020 Registered Recurring Po Kumar Work Phone: -[facility] Center Start: 07-06-2020 End: 07-06-2020 Patient encounter procedure External Provider [facility] Start: 07-06-2020 Results Only External Provider [facility]ter [facility] Procedures Date Procedure Procedure Detail Performing Clinician Start: 01-09-2024 Ultrasound elastogra phy of liver MD Rafael Kumar Work Phone: Start: 05-25-2022 Ultrasonography of liver MD Rafael Kumar Work Phone: Start: 05-14-[address] MAXI KUMAR Comment on above: Performed By: #### P SASC #### [facility] [address] [place] [address] Dr. Prem Lyon Start: 02-21-2022 Fibroscan (Not Applicable) MD Rafael Kumar Work Phone: Start: 01-01-[address] MAXI KUMAR Comment on above: Performed By: #### P SAD #### [facility] [address] [place] [address] Dr. Prem Lyon Start: 11-22-2020 SARS Antigen (LFIA) Po Wendy Kumar Work Phone: Start: 07-06-2020 EXTERNAL IMAGING Can Marker al Provider Start: 06-21-2020 Ultrasonography by transrectal approach ELOISE SALAZAR US scan of prostate - transurethral Giovany Pak Jr. Plan of Treatment Date Care Activity Detail Author Start: 01-09-2024 [facility] Start: 02-21-2022 [facility] Work Phone: [id number]. tumor marker [Mass/volume] in Serum or Plasma [facility] Immunizations Immunization Date Immunization Notes Care Provider Fa cility 05-29-2022 SARS-CoV-2 (COVID-19 ) [id number] ELOISE SALAZAR [facility] 05-09-2022 influenza virus vacc ine, unspecified formulation ELOISE MARIE [facility] 06-27-2021 SARS-CoV-2 (COVID-19 ) mRNA-1273 vaccine ELOISE MARIE [facility] 04-24-2021 influenza virus vacc ine, unspecified formulation ELOISE MARIE [facility] 11-02-2020 COVID-19 mRNA-1273 (Allen) MD Rafael Kumar Work Phone: [facility] 10-16-2020 SARS-CoV-2 (COVID-19 ) mRNA-1273 vaccine Giovany Pak Jr. [facility] 10-12-2020 COVID-19 mRNA-1273 (Modernilda) MD Rafael Kumar Work Phone: [facility] 09-25-2020 SARS-CoV-2 (COVID-19 ) mRNA-1273 vaccine Giovany Pak . [facility] 09-15-2020 SARS-CoV-2 (COVID-19 ) mRNA-1273 vaccine ELOISE MARIE [facility] 05-18-2020 influenza virus vacc ine, unspecified formulation ELOISE MARIE [facility] 01-18-2017 pneumococcal polysaccharide vaccine, 23 valent ELOISE MARIE [facility] Payers Date Payer Category Payer Medicare [id number] 2015 Medicare MEDICARE MEDICAR E A AND B [id number] 2015-Present [place] [id number] 1959 Medicare [id number] 1959 Private Health Insurance [id number] 1959 Self-pay [id number] 1950 Unknown [id number] 1950 Unknown [id number] 1950 Unknown [id number] 1950 Unknown [id number] [id number] 1950 Unknown [id number] [id number] Medicare [id number] Unknown [id number] Unknown [id number] Unknown [id number] Social History Date Type Detail Facility Tobacco smoking stat [facility] Unknown if ever smoked [facility] Start: 1950 Sex Assigned At Not on file [facility] Start: 08-25-2020 End: 09-12-2022 Tobacco smoking status NHIS Ex-smoker (finding) [facility] Start: 1950 Sex Assigned At Male [facility] Tobacco smoking status Never [facility] Sex Assigned At Male [facility] Other Goals Date Patient Goal Desired Activity /State Functional Status Date Assessment Result Facility 01-23-2023 Functional Status N/A [facility] 01-09-2022 Functional Status N/A [facility] Clinical Notes 10-15-2012 to 01-23-2023 Note Date & Type Note Facility 01-23-2023 Hospital Discharge instructions Patient Education 01/23/2023 13:35:26 Prostate Cancer Screening Prostate Cancer Screening Prostate cancer screening is testing that is done to check for the presence of prostate cancer in men. The prostate gland is a walnut-sized gland that is located below the bladder and in front of the rectum in males. The function of the prostate is to add fluid to semen during ejaculation. Prostate cancer is one of the most common types of cancer in men. Who should have prostate cancer screening? Screening recommendations vary based on age and other risk factors, as well as between the professional organizations who make the recommendations. In general, screening is recommended if: You are age 50 to 70 and have an average risk for prostate cancer. You should talk with your health care provider about your need for screening and how often screening should be done. Because most prostate cancers are slow growing and will not cause , screening in this age group is generally reserved for men who have a 10- to 15-year life expectancy. You are younger than age 50, and you have these risk factors: ?Having a father, brother, or uncle who has been diagnosed with prostate cancer. The risk is higher if your family member's cancer occurred at an early age or if you have multiple family members with prostate cancer at an early age. ?Being a male who is Black or is of [place] or sub-Saharan descent. In general, screening is not recommended if: You are younger than age 40. You are between the ages of 40 and 49 and you have no risk factors. You are 70 years of age or older. At this age, the risks that screening can cause are greater than the benefits that it may provide. If you are at high risk for prostate cancer, your health care provider may recommend that you have screenings more often or that you start screening at a younger age. How is screening for prostate cancer done? The recommended prostate cancer screening test is a blood test called the prostate-specific antigen (PSA) test. PSA is a protein that is made in the prostate. As you age, your prostate naturally produces more PSA. Abnormally high PSA levels may be caused by: Prostate cancer. An enlarged prostate that is not caused by cancer (benign prostatic hyperplasia, or BPH). This condition is very common in older men. A prostate gland infection (prostatitis) or urinary tract infection. Certain medicines such as male hormones (like testosterone) or other medicines that raise testosterone levels. A rectal exam may be done as part of prostate cancer screening to help provide information about the size of your prostate gland. When a rectal exam is performed, it should be done after the PSA level is drawn to avoid any effect on the results. Depending on the PSA results, you may need more tests, such as: A physical exam to check the size of your prostate gland, if not done as part of screening. Blood and imaging tests. A procedure to remove tissue samples from your prostate gland for testing (biopsy). This is the only way to know for certain if you have prostate cancer. What are the benefits of prostate cancer screening? Screening can help to identify cancer at an early stage, before symptoms start and when the cancer can be treated more easily. There is a small chance that screening may lower your risk of dying from prostate cancer. The chance is small because prostate cancer is a slow-growing cancer, and most men with prostate cancer from a different cause. What are the risks of prostate cancer screening? The main risk of prostate cancer screening is diagnosing and treating prostate cancer that would never have caused any symptoms or problems. This is called overdiagnosisand overtreatment. PSA screening cannot tell you if your PSA is high due to cancer or a different cause. A prostate biopsy is the only procedure to diagnose prostate cancer. Even the results of a biopsy may not tell you if your cancer needs to be treated. Slow-growing prostate cancer may not need any treatment other than monitoring, so diagnosing and treating it may cause unnecessary stress or other side effects. Questions to ask your health care provider When should I start prostate cancer screening? What is my risk for prostate cancer? How often do I need screening? What type of screening tests do I need? How do I get my test results? What do my results mean? Do I need treatment? Where to find more information The [employer]: www.cancer.org [employer]: www.auanet.org Contact a health care provider if: You have difficulty urinating. You have pain when you urinate or ejaculate. You have blood in your urine or semen. You have pain in your back or in the area of your prostate. Summary Prostate cancer is a common type of cancer in men. The prostate gland is located below the bladder and in front of the rectum. This gland adds fluid to semen during ejaculation. Prostate cancer screening may identify cancer at an early stage, when the cancer can be treated more easily and is less likely to have spread to other areas of the body. The prostate-specific antigen (PSA) test is the recommended screening test for prostate cancer, but it has associated risks. Discuss the risks and benefits of prostate cancer screening with your health care provider. If you are age 70 or older, the risks that screening can cause are greater than the benefits that it may provide. This information is not intended to replace advice given to you by your health care provider. Make sure you discuss any questions you have with your health care provider. Document Revised: 01/01/2022 Document Reviewed: 01/01/2022 [employer]Scan Patient Education 2022 [employer]. Follow Up Care 01/09/2022 09:58:16 With:ELOISE SALAZAR PA-C, URL Address: [address] [place] [id number] When:Within 1 Year(s) Comments:w/ PSA [facility] 02-14-2022 Evaluation note Encounter Date Diagnosis Assessment Notes Jan, Fatty liver (ICD-10 - K76.0) Continue Milk Thistle and Vitamin E Repeat Fibroscan Jan, Liver fibrosis (ICD-10 - K74.00) Jan, Crohn disease (ICD-10 - K50.90) Continue to monitor symptoms [facility] Other 06-21-2022 Hospital Discharge instructions Patient Education 01/09/2022 09:50:33 Benign Prostatic Hyperplasia Benign Prostatic Hyperplasia Benign prostatic hyperplasia (BPH) is an enlarged prostate gland that is caused by the normal agingprocess and not by cancer. The prostate is a walnut-sized gland that is involved in the production of semen. It is located in front of the rectum and below the bladder. The bladder stores urine and the urethra is the tube that carries the urine out of the body. The prostate may get bigger as a man gets older. An enlarged prostate can press on the urethra. This can make it harder to pass urine. The build-up of urine in the bladder can cause infection. Back pressure and infection may progress to bladder damage and kidney (renal) failure. What are the causes? This condition is part of a normal aging process. However, not all men develop problems from this condition. If the prostate enlarges away from the urethra, urine flow will not be blocked. If it enlarges toward the urethra and compresses it, there will be problems passing urine. What increases the risk? This condition is more likely to develop in men over the age of 50 years. What are the signs or symptoms? Symptoms of this condition include: Getting up often during the night to urinate. Needing to urinate frequently during the day. Difficulty starting urine flow. Decrease in size and strength of your urine stream. Leaking (dribbling) after urinating. Inability to pass urine. This needs immediate treatment. Inability to completely empty your bladder. Pain when you pass urine. This is more common if there is also an infection. Urinary tract infection (UTI). How is this diagnosed? This condition is diagnosed based on your medical history, a physical exam, and your symptoms. Tests will also be done, such as: A post-void bladder scan. This measures any amount of urine that may remain in your bladder after you finish urinating. A digital rectal exam. In a rectal exam, your health care provider checks your prostate by putting a lubricated, gloved finger into your rectum to feel the back of your prostate gland. This exam detects the size of your gland and any abnormal lumps or growths. An exam of your urine (urinalysis). A prostate specific antigen (PSA) screening. This is a blood test used to screen for prostate cancer. An ultrasound. This test uses sound waves to electronically produce a picture of your prostate gland. Your health care provider may refer you to a specialist in kidney and prostate diseases (urologist). How is this treated? Once symptoms begin, your health care provider will monitor your condition (active surveillance or watchful waiting). Treatment for this condition will depend on the severity of your condition. Treatment may include: Observation and yearly exams. This may be the only treatment needed if your condition and symptoms are mild. Medicines to relieve your symptoms, including: ?Medicines to shrink the prostate. ?Medicines to relax the muscle of the prostate. Surgery in severe cases. Surgery may include: ?Prostatectomy. In this procedure, the prostate tissue is removed completely through an open incision or with a laparoscope or robotics. ?Transurethral resection of the prostate (TURP). In this procedure, a tool is inserted through the opening at the tip of the penis (urethra). It is used to cut away tissue of the inner core of the prostate. The pieces are removed through the same opening of the penis. This removes the blockage. ?Transurethral incision (TUIP). In this procedure, small cuts are made in the prostate. This lessens the prostate's pressure on the urethra. ?Transurethral microwave thermotherapy (TUMT). This procedure uses microwaves to create heat. The heat destroys and removes a small amount of prostate tissue. ?Transurethral needle ablation (TUNA). This procedure uses radio frequencies to destroy and remove a small amount of prostate tissue. ?Interstitial laser coagulation (ILC). This procedure uses a laser to destroy and remove a small amount of prostate tissue. ?Transurethral electrovaporization (TUVP). This procedure uses electrodes to destroy and remove a small amount of prostate tissue. ?Prostatic urethral lift. This procedure inserts an implant to push the lobes of the prostate away from the urethra. Follow these instructions at home: Take [id number] and prescription medicines only as told by your health care provider. Monitor your symptoms for any changes. Contact your health care provider with any changes. Avoid drinking large amounts of liquid before going to bed or out in public. Avoid or reduce how much caffeine or alcohol you drink. Give yourself time when you urinate. Keep all follow-up visits as told by your health care provider. This is important. Contact a health care provider if: You have unexplained back pain. Your symptoms do not get better with treatment. You develop side effects from the medicine you are taking. Your urine becomes very dark or has a bad smell. Your lower abdomen becomes distended and you have trouble passing your urine. Get help right away if: You have a fever or chills. You suddenly cannot urinate. You feel lightheaded, or very dizzy, or you faint. There are large amounts of blood or clots in the urine. Your urinary problems become hard to manage. You develop moderate to severe low back or flank pain. The flank is the side of your body between the ribs and the hip. These symptoms may represent a serious problem that is an emergency. Do not wait to see if the symptoms will go away. Get medical help right away. Call your local emergency services (911 in the [place] Do not drive yourself to the hospital. Summary Benign prostatic hyperplasia (BPH) is an enlarged prostate that is caused by the normal aging process and not by cancer. An enlarged prostate can press on the urethra. This can make it hard to pass urine. This condition is part of a normal aging process and is more likely to develop in men over the age of 50 years. Get help right away if you suddenly cannot urinate. This information is not intended to replace advice given to you by your health care provider. Make sure you discuss any questions you have with your health care provider. Document Released: 07/08/2006 Document Revised: 06/02/2019 Document Reviewed: 08/12/2017 [employer] Patient Education 2020 [employer]. Follow Up Care 07/11/2021 11:41:34 With:Pasha Cerda MD, Giovany Webster, URO Address: [facility] [address] , [place] [id number] [id number] When: Unknown [facility] 04-27-2022 Evaluation note* Encounter Date Diagnosis Assessment Notes Treatment Notes Treatment Clinical Notes Oct, Fatty liver (ICD-10 - K76.0) Stop Imuran CBC & CMP in 6 weeks Liver u/s Q6 months Start vitamin E 1,000 units daily (if not already taking) Start Milk Thistle daily Oct, Liver fibrosis (ICD-10 - K74.00) Oct, Crohns disease (ICD-10 - K50.90) Monitor symptoms Patient to call if symptoms flare - will proceed with colonoscopy [employer] Other 02-25-2022 Progress note Author Maria T García [facility] September 15, 2021 12:36pm Note Date/Time September 15, 2021 12:07pm [facility] at [address] [address] Hem/Onc Follow Up Note - OP Signed Patient: Sis Johnson MR#: [id number] : 1950 Acct:[id number] Age/Sex: 71 / M Type: REG RCR Copies to: MD John Queen MD~ Subjective Date/Time of Service: Date of Service: 09/15/2021 Time of Service: 12:05 Chief Complaint: Patient is a former patient of Dr Harry paris for a one year followup for anemia. He had labs 08/16/21 for review today, voices no concerns. HPI: Mr. Johnson presents in follow-up for his B12 deficiency and anemia. He reports good energy, but does think he may tire out a bit easier over the last year. He denies fever, chills, night sweats, no signs of bleeding, no new pains. His labsare stable, however hgb did drop slightly to 12.9. We discussed that last year Dr. Currie had him drop his B12 supplement from 4 pills/day to 1 pill/day, and this may have caused the slight drop in hgb and his energy. We will increase this to 2 pills/day and re-evaluate again in 1 year. We will have him schedule with either Dr. Rojo or Dr. Matthews in 1 year at follow-up, to establish care. We will check a cbc, cmp, iron studies and B12 at that time. - Summary of Therapies Summary of Therapies: Oral B12 supplement 01/2019-present ROS Details: All systems reviewed & no additional complaints except as documented - Extensive review of systems is negative for any abnormality. Pertinent to his anemia, he completely denies any fatigue, dizziness or lightheadedness, chest pain , dyspnea or orthopnea. Pertinent to his leukopeniahe denies any fever, chills or any symptoms of infection PMFSH - Medical History Medical History: Medical History (Last Reviewed 11/24/20 @ 06:57 by Chelle Biggs RN) Colon polyp Crohns disease Diabetes Former smoker GERD (gastroesophageal reflux disease) High blood pressure High cholesterol Iron deficiency anemia - Surgical History Surgical History: Surgical History (Last Reviewed 11/24/20 @ 06:57 by Chelle Biggs RN) History of colonoscopy Hx of hand surgery - Family History Family History: Family History (Last Updated 11/24/20 @ 06:58 by Chelle Biggs RN) Father Brain tumor Mother Diabetes Cancer - Social History Smoking Status: Former smoker Tobacco Type: cigarettes Substance Use Type: None Home Medications & Allergies Allergies lisinopril Allergy (Verified 09/15/21 11:30) Cough Home Medications gemfibrozil 600 mg tablet (Lopid) 600 mg PO BID 01/13/19 [History Confirmed 09/15/21] losartan 50 mg tablet 50 mg PO DAILY 01/13/19 [History Confirmed 09/15/21] mercaptopurine 50 mg tablet 2 tab PO DAILY 01/13/19 [History Confirmed 09/15/21] metformin 500 mg tablet 1,000 mg PO BID 01/13/19 [History Confirmed 09/15/21] omeprazole 20 mg tablet,delayed release 20 mg PO DAILY 01/13/19 [History Confirmed 09/15/21] pioglitazone 15 mg tablet (Actos) 15 mg PO DAILY 01/13/19 [History Confirmed 09/15/21] simvastatin 10 mg tablet 10 mg PO QHS 01/13/19 [History Confirmed 09/15/21] cholecalciferol (vitamin D3) 25 mcg (1,000 unit) capsule (Vitamin D3) 4,000 unitPO DAILY 01/19/19 [History Confirmed 09/15/21] vitamin B12 0.5 mg-folic acid 1 mg tablet 1,000 mg PO DAILY 03/24/19 [History Confirmed 09/15/21] tamsulosin 0.4 mg capsule 0.4 mg PO DAILY 09/15/21 [History Confirmed 09/15/21] Objective - Height/Weight Height/Weight: Height 5 ft 10.87 in Weight 90.31 kg - Vital Signs Vital Signs: 09/15/21 11:30 Temperature 98 F Pulse Rate [Left Brachial] 92 H Respiratory Rate 20 Blood Pressure [Left Arm] 146/85 H 02 Sat by Pulse Oximetry 99 - Distress Screening Distress Screen Results: RN Distress Screening Start: 01/19/19 12:47 Freq: Status: Active Protocol: Document 05/26/19 09:00 (Rec: 05/26/19 09:00 [email or web address]) Distress Screening Distress Score: 0 No worry/distress Distress Screening Total 0 Physical Exam Narrative: GENERAL APPEARANCE: Alert and oriented. In no acute distress. HEENT: Normocephalic, atraumatic. Moist and clear. LUNGS: Clear to auscultation bilaterally, no rales, rhonchi, or crackles. CARDIOVASCULAR: S1 and S2, regular rate and rhythm, no murmurs, gallops, rubs. ABDOMEN: Soft, nontender. No hepatosplenomegaly. No mass palpated. EXTREMITIES: No cyanosis, clubbing, or edema. NEUROLOGIC: Cranial nerves grossly intact. Results - Labs Labs: Diagram of Most Recent CBC and CMP 08/16/21 09:56 08/17/19 13:17 Assessment and Plan (1) Anemia Qualifiers: Anemia type: B12 deficiency Anemia and leukopenia, developed in 12/2018, MCV high. He has long-standing history of inflammatory bowel disease specifically Crohn's. He has been on 6-mercaptopurine or 6-MP for a long time>12 years. -Dr. Pastor performed bidirectional endoscopy with findings such as polyps unrelated to inflammatory bowel disease. no evidence of hemolysis. -His B12 level was decreased: 160 (low normal 180); myeloma work up negative. Retic index suggest hypoproliferation. Gastrin level was high, no parietal cell and intrinsic factor antibodies. -Etiology could be B12 deficiency, slow improvement after the correction of B12 level, suggesting possible overlapping myelodysplastic syndrome. This is unlikely due to 6-MP. Hgb normalized on this visit. -Continue Oral B12, see in 1 year with repeat CBC. 09/15/2021: hgb slightly decreased to 12.9 in July, B12 decreased as well but is not deficient by any means. He did decrease his B12 supplement from 4 pills/day to 1 pill/day at his visit 1 year ago. We will increase this to 2 pills/day and re-evaluate at his next visit. (2) Leucopenia As above, WBC counts are low but overall stable, no infections. CBC in a year. (3) B12 deficiency Gastrin level was high, no parietal cell and intrinsic factor antibodies. -B12 level improved to >2000 on oral B12 1000 mcg daily, continue. Repeat B12/folate level in a year 07/2021. 09/15/2021: B12 level in July decreased since decreasing his B12 supplement from 4 pills/day to 1 pill/day. His levels remain ok/high but energy may have dropped slightly over the last year and his hgb is now 12.9. We will increase his dosing to 2 pills/day and re-evaluate in 1 year. He will call in sooner if symptoms worsen or new symptoms arise. - Time with Patient Coordination of Care & Counseling Time: Greater than 50% of time spent with patient was for coordination of care (as documented) and ceen-sr-thil counseling of patient and/or family. Dictated By: Maria T García APRN DD/ [id number] Signed By: <Electronically signed by RAGINI García> 09/15/21 1236 [facility] Work Phone: [phone] 479-591201-26-2022 Evaluation note* Encounter Date Diagnosis Assessment Notes Treatment Notes Treatment Clinical Notes Jul, Fatty liver (ICD-10 - K76.0) START VITAMIN E 800-1000 MG RTO 3 MONTHS Jul, Crohn disease (ICD-10 - K50.90) [employer] Other 12-07-2021 Evaluation note* Encounter Date Diagnosis Assessment Notes Treatment Notes Treatment Clinical Notes Jun, Crohn disease (ICD-10 - K50.90) Jun, Elevated liver function tests (ICD-10 - R94.5) [facility] Other 02-04-2021 Progress note Author Harry Currie [facility] August 25, 2020 10:14am Note Date/Time August 25, 2020 1 0:14am [facility] at [address] [address] Hem/Onc Follow Up Note - OP Signed Patient: Sis Johnson MR#: [id number] : 1950 Acct:[id number] Age/Sex: 70 / M Type: REG RCR Copies to: MD John Queen MD~ Subjective Date/Time of Service: Date of Service: 08/25/2020 Time of Service: 10:13 Chief Complaint: Patient is here for a 6 month follow up, with labs for review today. HPI: Mr. Johnson presents to discuss lab results and plan, he has been taking B12. Hereports good energy level, he denies fatigue, fever, chills, night sweats - Summary of Therapies Summary of Therapies: Oral B12 supplement 01/2019- ROS Details: All systems reviewed & no additional complaints except as documented - Extensive review of systems is negative for any abnormality. Pertinent to his anemia, he completely denies any fatigue, dizziness or lightheadedness, chest pain , dyspnea or orthopnea. Pertinent to his leukopeniahe denies any fever, chills or any symptoms of infection Subjective/ROS - Narrative: CONSTITUTIONAL: No weight loss, fever, chills, weakness or fatigue. CARDIOVASCULAR: No chest pain, chest pressure or chest discomfort. No palpitations or edema. RESPIRATORY: No shortness of breath, cough or hemoptysis. GASTROINTESTINAL: No dysphagia, nausea, vomiting or diarrhea. No abdominal pain,melena, hematochezia. GENITOURINARY: No dysuria, urinary frequency or urgency. NEUROLOGICAL: No headache, dizziness. MUSCULOSKELETAL: No back pain, or joint pain. [facility] - Medical History Medical History: Medical History (Last Reviewed 01/19/19 @ 15:47 by Ester Da Silva MD) Colon polyp Crohns disease Diabetes Former smoker GERD (gastroesophageal reflux disease) High blood pressure High cholesterol Iron deficiency anemia - Surgical History Surgical History: Surgical History (Last Reviewed 01/19/19 @ 13:09 by Myrtle Coyle RN) History of colonoscopy Hx of hand surgery - Family History Family History: Family History (Last Reviewed 01/19/19 @ 15:47 by Ester Da Silva MD) Father Brain tumor Mother Diabetes Mother Cancer - Social History Smoking Status: Former smoker Tobacco Type: cigarettes Substance Use Type: None Home Medications & Allergies Allergies lisinopril Allergy (Verified 08/25/20 10:01) Cough Home Medications gemfibrozil [Lopid] 600 mg PO BID 01/13/19 [History Confirmed 08/25/20] losartan 50 mg PO DAILY 01/13/19 [History Confirmed 08/25/20] mercaptopurine 2 tab PO DAILY 01/13/19 [History Confirmed 08/25/20] metformin 500 mg PO BID 01/13/19 [History Confirmed 08/25/20] omeprazole 20 mg PO DAILY 01/13/19 [History Confirmed 08/25/20] pioglitazone [Actos] 15 mg PO DAILY 01/13/19 [History Confirmed 08/25/20] simvastatin 10 mg PO QHS 01/13/19 [History Confirmed 08/25/20] cholecalciferol (vitamin D3) [Vitamin D3] 4,000 unit PO DAILY 01/19/19 [History Confirmed 08/25/20] vitamin R98-buhld acid 1,000 mg PO DAILY 03/24/19 [History Confirmed 08/25/20] Objective - Height/Weight Height/Weight: Height 5 ft 10.87 in Weight 89.403 kg - Vital Signs Vital Signs: 08/25/20 10:02 Temperature 97.4 F L Pulse Rate [Left Brachial] 106 H Respiratory Rate 20 Blood Pressure [Left Arm] 138/83 02 Sat by Pulse Oximetry 96 - Emotional Needs Assessment Emotional Needs Assessment: Emotional Needs Identified? No: pt states he feels good today Physical Exam Narrative: GENERAL APPEARANCE: In no acute distress. HEENT: No adenopathy LUNGS: Breathing comfortably on room air. EXTREMITIES: No edema. NEUROLOGIC: Grossly intact. - ECOG Performance Status ECOG Score: 1 Results - Labs Labs: Diagram of Most Recent CBC and CMP 08/12/20 12:17 08/17/19 13:17 Assessment and Plan (1) Anemia Qualifiers: Anemia type: B12 deficiency Anemia and leukopenia, developed in 12/2018, MCV high. He has long-standing history of inflammatory bowel disease specifically Crohn's. He has been on 6-mercaptopurine or 6-MP for a long time>12 years. -Dr. Pastor performed bidirectional endoscopy with findings such as polyps unrelated to inflammatory bowel disease. no evidence of hemolysis. -His B12 level was decreased: 160 (low normal 180); myeloma work up negative. Retic index suggest hypoproliferation. Gastrin level was high, no parietal cell and intrinsic factor antibodies. -Etiology could be B12 deficiency, slow improvement after the correction of B12 level, suggesting possible overlapping myelodysplastic syndrome. This is unlikely due to 6-MP. Hgb normalized on this visit. -Continue Oral B12, see in 1 year with repeat CBC. (2) Leucopenia As above, WBC counts are stable, no infections. CBC in a year. (3) B12 deficiency Gastrin level was high, no parietal cell and intrinsic factor antibodies. -B12 level improved to >2000 on oral B12 1000 mcg daily, continue. Repeat B12/folate level in a year 07/2021. - Time with Patient Time Spent with Patient (Follow Up Visit): Less than 20 minutes Coordination of Care & Counseling Time: Greater than 50% of time spent with patient was for coordination of care (as documented) and rxct-wl-ftit counseling of patient and/or family. Dictated By: Harry Currie MD DD/ 1013 Signed By: <Electronically signed by Harry Currie MD> 08/25/20 1014 [facility] Work Phone: [phone] 316-970908-04-2020 Progress note Author Harry Currie [facility] February 23, 2020 10:07am Note Date/Time February 23, 2020 10: 06am [facility] [place] [address] Hem/Onc Follow Up Note - OP Signed Patient: Sis Johnson MR#: [id number] : 1950 Acct:[id number] Age/Sex: 69 / M Type: REG RCR Copies to: MD John Queen MD~ Subjective Date/Time of Service: Date of Service: 02/23/2020 Time of Service: 10:05 Chief Complaint: 6 month follow up appt review lab work HPI: Mr. Johnson presents to discuss lab results and plan, he has been taking B12. Hereports good energy level, he denies fatigue, fever, chills, night sweats - Summary of Therapies Summary of Therapies: Oral B12 supplement 01/2019- ROS Details: All systems reviewed & no additional complaints except as documented - Extensive review of systems is negative for any abnormality. Pertinent to his anemia, he completely denies any fatigue, dizziness or lightheadedness, chest pain , dyspnea or orthopnea. Pertinent to his leukopeniahe denies any fever, chills or any symptoms of infection Subjective/ROS - Narrative: CONSTITUTIONAL: No weight loss, fever, chills, weakness or fatigue. CARDIOVASCULAR: No chest pain, chest pressure or chest discomfort. No palpitations or edema. RESPIRATORY: No shortness of breath, cough or hemoptysis. GASTROINTESTINAL: No dysphagia, nausea, vomiting or diarrhea. No abdominal pain,melena, hematochezia. GENITOURINARY: No dysuria, urinary frequency or urgency. NEUROLOGICAL: No headache, dizziness. MUSCULOSKELETAL: No back pain, or joint pain. [facility] - Medical History Medical History: Medical History (Last Reviewed 01/19/19 @ 15:47 by Ester Da Silva MD) Colon polyp Crohns disease Diabetes Former smoker GERD (gastroesophageal reflux disease) High blood pressure High cholesterol Iron deficiency anemia - Surgical History Surgical History: Surgical History (Last Reviewed 01/19/19 @ 13:09 by Myrtle Coyle RN) History of colonoscopy Hx of hand surgery - Family History Family History: Family History (Last Reviewed 01/19/19 @ 15:47 by Ester Da Silva MD) Father Brain tumor Mother Diabetes Mother Cancer - Social History Smoking Status: Former smoker Tobacco Type: cigarettes Substance Use Type: None Home Medications & Allergies Allergies lisinopril Allergy (Verified 01/13/19 09:13) Cough Home Medications gemfibrozil [Lopid] 600 mg PO BID 01/13/19 [History Confirmed 02/23/20] losartan 50 mg PO DAILY 01/13/19 [History Confirmed 02/23/20] mercaptopurine 2 tab PO DAILY 01/13/19 [History Confirmed 02/23/20] metformin 500 mg PO BID 01/13/19 [History Confirmed 02/23/20] omeprazole 20 mg PO DAILY 01/13/19 [History Confirmed 02/23/20] pioglitazone [Actos] 15 mg PO DAILY 01/13/19 [History Confirmed 02/23/20] simvastatin 10 mg PO QHS 01/13/19 [History Confirmed 02/23/20] cholecalciferol (vitamin D3) [Vitamin D3] 4,000 unit PO DAILY 01/19/19 [History Confirmed 02/23/20] vitamin X25-usdmg acid 1,000 mg PO DAILY 03/24/19 [History Confirmed 02/23/20] Objective - Height/Weight Height/Weight: Height 5 ft 10.87 in Weight 88.8 kg - Vital Signs Vital Signs: 02/23/20 09:40 Temperature 97.6 F Pulse Rate [Left Brachial] 85 Respiratory Rate 20 Blood Pressure [Left Arm] 156/86 H 02 Sat by Pulse Oximetry 97 - Emotional Needs Assessment Emotional Needs Assessment: Emotional Needs Identified? No Distress Screening Total 0 Physical Exam Narrative: GENERAL APPEARANCE: In no acute distress. HEENT: No adenopathy LUNGS: Breathing comfortably on room air. EXTREMITIES: No edema. NEUROLOGIC: Grossly intact. Results - Labs Labs: Diagram of Most Recent CBC and CMP 02/16/20 10:06 08/17/19 13:17 Labs - Last 7 Days 02/16/20 10:06: Iron 96, TIBC 363, Iron Saturation 26.0, Transferrin 259, Ferritin 125.1, Vitamin B12 2558 H, Folate 6.6 02/16/20 10:06: WBC 4.0 L, Corrected WBC 4.0 L, RBC 3.83 L, Hgb 13.3, Hct 39.6, MCV 103.4 H, MCH 34.7, MCHC 33.6, RDW 14.8, Plt Count 198, MPV 8.8, Neut % (Auto) 79.1, Lymph % (Auto) 7.9, [place] % (Auto) 9.9, Eos % (Auto) 2.4, Baso % (Auto) 0.7, Neut # (Auto) 3.1, Lymph # (Auto) 0.3 L, [place] # (Auto) 0.4, Eos # (Auto) 0.1, Baso # (Auto) 0.0, Nucleated RBC % (auto) 0.2 Assessment and Plan (1) Anemia Qualifiers: Anemia type: B12 deficiency Anemia and leukopenia, developed in 12/2018, MCV high. He has long-standing history of inflammatory bowel disease specifically Crohn's. He has been on 6-mercaptopurine or 6-MP for a long time>12 years. -Dr. Pastor performed bidirectional endoscopy with findings such as polyps unrelated to inflammatory bowel disease. no evidence of hemolysis. -His B12 level was decreased: 160 (low normal 180); myeloma work up negative. Retic index suggest hypoproliferation. Gastrin level was high, no parietal cell and intrinsic factor antibodies. -Etiology could be B12 deficiency, slow improvement after the correction of B12 level, suggesting possible overlapping myelodysplastic syndrome. This is unlikely due to 6-MP. Hgb normalized on this visit. -Continue Oral B12, see in 6 months with repeat CBC, iron studies adequate. (2) Leucopenia As above, WBC counts are stable and improving, no infections. (3) B12 deficiency Gastrin level was high, no parietal cell and intrinsic factor antibodies. -B12 level improved to >2000 on oral B12 1000 mcg daily, continue. Repeat B12/folate level in a year 01/2021. - Time with Patient Coordination of Care & Counseling Time: 15 min, greater than 50% of time spent with patient was for coordination of care(as documented) and vojo-ti-mofe counseling of patient and/or family. Dictated By: Harry Currie MD DD/ 1005 Signed By: <Electronically signed by Harry Currie MD> 02/23/20 1007 [facility] Work Phone: [phone] Progress note Author Harry Currie [facility] August 25, 2019 1:37pm Note Date/Time August 25, 2019 1 0:00am [facility] [place] [address] Hem/Onc Follow Up Note - OP Signed Patient: Sis Johnson MR#: [id number] : 1950 Acct:[id number] Age/Sex: 69 / M Type: REG RCR Copies to: MD John Queen MD~ Subjective Date/Time of Service: Date of Service: 08/25/2019 Time of Service: 10:00 Chief Complaint: 3 month follow up appt review lab work HPI: Mr. Johnson presents to discuss lab results and plan, he has been taking B12. Hereports good energy level, he denies fatigue, fever, chills, night sweats - Summary of Therapies Summary of Therapies: Oral B12 supplement 01/2019- ROS Details: All systems reviewed & no additional complaints except as documented - Extensive review of systems is negative for any abnormality. Pertinent to his anemia, he completely denies any fatigue, dizziness or lightheadedness, chest pain , dyspnea or orthopnea. Pertinent to his leukopeniahe denies any fever, chills or any symptoms of infection Subjective/ROS - Narrative: CONSTITUTIONAL: No weight loss, fever, chills, weakness or fatigue. CARDIOVASCULAR: No chest pain, chest pressure or chest discomfort. No palpitations or edema. RESPIRATORY: No shortness of breath, cough or hemoptysis. GASTROINTESTINAL: No dysphagia, nausea, vomiting or diarrhea. No abdominal pain,melena, hematochezia. GENITOURINARY: No dysuria, urinary frequency or urgency. NEUROLOGICAL: No headache, dizziness. MUSCULOSKELETAL: No back pain, or joint pain. [facility] - Medical History Medical History: Medical History (Last Reviewed 01/19/19 @ 15:47 by Ester Da Silva MD) Colon polyp Crohns disease Diabetes Former smoker GERD (gastroesophageal reflux disease) High blood pressure High cholesterol Iron deficiency anemia - Surgical History Surgical History: Surgical History (Last Reviewed 01/19/19 @ 13:09 by Myrtle Coyle RN) History of colonoscopy Hx of hand surgery - Family History Family History: Family History (Last Reviewed 01/19/19 @ 15:47 by Ester Da Silva MD) Father Brain tumor Mother Diabetes Mother Cancer - Social History Smoking Status: Former smoker Tobacco Type: cigarettes Substance Use Type: None Home Medications & Allergies Allergies lisinopril Allergy (Verified 01/13/19 09:13) Cough Home Medications gemfibrozil [Lopid] 600 mg PO BID 01/13/19 [History Confirmed 08/25/19] losartan 50 mg PO DAILY 01/13/19 [History Confirmed 08/25/19] mercaptopurine 2 tab PO DAILY 01/13/19 [History Confirmed 08/25/19] metformin 500 mg PO BID 01/13/19 [History Confirmed 08/25/19] omeprazole 20 mg PO DAILY 01/13/19 [History Confirmed 08/25/19] pioglitazone [Actos] 15 mg PO DAILY 01/13/19 [History Confirmed 08/25/19] simvastatin 10 mg PO QHS 01/13/19 [History Confirmed 08/25/19] cholecalciferol (vitamin D3) [Vitamin D3] 4,000 unit PO DAILY 01/19/19 [History Confirmed 08/25/19] vitamin G39-csgcc acid 1,000 mg PO DAILY 03/24/19 [History Confirmed 08/25/19] Objective - Height/Weight Height/Weight: Height 5 ft 10.87 in Weight 92 kg - Vital Signs Vital Signs: 08/25/19 09:29 Temperature 97.8 F Pulse Rate [Left Brachial] 85 Respiratory Rate 20 Blood Pressure [Left Arm] 158/88 H 02 Sat by Pulse Oximetry 95 - Emotional Needs Assessment Emotional Needs Assessment: Emotional Needs Identified? Yes Distress Screening Total 3 Physical Exam Narrative: GENERAL APPEARANCE: In no acute distress. HEENT: Moist and clear EXTREMITIES: No edema. NEUROLOGIC: Grossly intact. Results - Labs Labs: Diagram of Most Recent CBC and CMP 08/17/19 13:17 08/17/19 13:17 Assessment and Plan (1) Anemia Qualifiers: Anemia type: B12 deficiency Anemia and leukopenia, developed in 12/2018, MCV high. He has long-standing history of inflammatory bowel disease specifically Crohn's. He has been on 6-mercaptopurine or 6-MP for a long time>12 years. -Dr. Pastor performed bidirectional endoscopy with findings such as polyps unrelated to inflammatory bowel disease. no evidence of hemolysis. -His B12 level was decreased: 160 (low normal 180); myeloma work up negative. Retic index suggest hypoproliferation. Gastrin level was high, no parietal cell and intrinsic factor antibodies. -Etiology could be B12 deficiency, slow improvement after the correction of B12 level, suggesting possible overlapping myelodysplastic syndrome. This is unlikely due to 6-MP. Hgb normalized on this visit. -Continue Oral B12, see in 6 months with repeat CBC, he plans to resume blood donation, will check iron studies. (2) Leucopenia As above, WBC counts are stable and improving, no infections. (3) B12 deficiency Gastrin level was high, no parietal cell and intrinsic factor antibodies. -B12 level improved to >600 on oral B12 1000 mcg daily, continue. Repeat B12/folate level in 6 months. - Time with Patient Coordination of Care & Counseling Time: Greater than 50% of time spent with patient was for coordination of care (as documented) and [id number]-sy-vepi counseling of patient and/or family. Dictated By: Harry Currie MD DD/ 1000 Signed By: <Electronically signed by Harry Currie MD> 08/25/19 3162 [facility] Work Phone: [phone] Progress note Author Harry Currie [facility] May 26, 2019 9:41am Note Date/Time May 26, 2019 9 :36am [facility] [place] [address] Hem/Onc Follow Up Note - OP Signed Patient: Sis Johnson MR#: [id number] : 1950 Acct:[id number] Age/Sex: 69 / M Type: REG RCR Copies to: Rafael Kumar MD, MD~ Subjective Date/Time of Service: Date of Service: 05/26/2019 Time of Service: 09:35 Chief Complaint: 2 month follow up appt to review lab work HPI: Mr. Johnson presents to discuss lab results and plan, he has been taking B12. Hereports good energy level, he denies fatigue, fever, chills, night sweats - Summary of Therapies Summary of Therapies: Oral B12 supplement 01/2019- ROS Details: All systems reviewed & no additional complaints except as documented - Extensive review of systems is negative for any abnormality. Pertinent to his anemia, he completely denies any fatigue, dizziness or lightheadedness, chest pain , dyspnea or orthopnea. Pertinent to his leukopeniahe denies any fever, chills or any symptoms of infection Subjective/ROS - Narrative: CONSTITUTIONAL: No weight loss, fever, chills, weakness or fatigue. CARDIOVASCULAR: No chest pain, chest pressure or chest discomfort. No palpitations or edema. RESPIRATORY: No shortness of breath, cough or hemoptysis. GASTROINTESTINAL: No dysphagia, nausea, vomiting or diarrhea. No abdominal pain,melena, hematochezia. GENITOURINARY: No dysuria, urinary frequency or urgency. NEUROLOGICAL: No headache, dizziness. MUSCULOSKELETAL: No back pain, or joint pain. [facility] - Medical History Medical History: Medical History (Last Reviewed 01/19/19 @ 15:47 by Ester Da Silva MD) Colon polyp Crohns disease Diabetes Former smoker GERD (gastroesophageal reflux disease) High blood pressure High cholesterol Iron deficiency anemia - Surgical History Surgical History: Surgical History (Last Reviewed 01/19/19 @ 13:09 by Myrtle Coyle RN) History of colonoscopy Hx of hand surgery - Family History Family History: Family History (Last Reviewed 01/19/19 @ 15:47 by Ester Da Silva MD) Father Brain tumor Mother Diabetes Mother Cancer - Social History Smoking Status: Former smoker Tobacco Type: cigarettes Substance Use Type: None Home Medications & Allergies Allergies lisinopril Allergy (Verified 01/13/19 09:13) Cough Home Medications gemfibrozil [Lopid] 600 mg PO BID 01/13/19 [History Confirmed 05/26/19] losartan 50 mg PO DAILY 01/13/19 [History Confirmed 05/26/19] mercaptopurine 2 tab PO DAILY 01/13/19 [History Confirmed 05/26/19] metformin 500 mg PO BID 01/13/19 [History Confirmed 05/26/19] omeprazole 20 mg PO DAILY 01/13/19 [History Confirmed 05/26/19] pioglitazone [Actos] 15 mg PO DAILY 01/13/19 [History Confirmed 05/26/19] simvastatin 10 mg PO QHS 01/13/19 [History Confirmed 05/26/19] cholecalciferol (vitamin D3) [Vitamin D3] 4,000 unit PO DAILY 01/19/19 [History Confirmed 05/26/19] vitamin H92-ojyug acid 1,000 mg PO DAILY 03/24/19 [History Confirmed 05/26/19] Objective - Height/Weight Height/Weight: Height 5 ft 10.87 in Weight 88.2 kg - Vital Signs Vital Signs: 05/26/19 08:56 Temperature 98.2 F Pulse Rate [Left Brachial] 82 Respiratory Rate 20 Blood Pressure [Left Arm] 132/71 02 Sat by Pulse Oximetry 97 - Emotional Needs Assessment Emotional Needs Assessment: Emotional Needs Identified? No Distress Screening Total 0 Physical Exam Narrative: GENERAL APPEARANCE: In no acute distress. HEENT: Moist and clear EXTREMITIES: No edema. NEUROLOGIC: Grossly intact. Results - Labs Labs: Diagram of Most Recent CBC and CMP 05/18/19 13:08 B12 [id number] Assessment and Plan (1) Anemia Qualifiers: Anemia type: B12 deficiency Anemia and leukopenia, developed in 12/2018, MCV high. He has long-standing history of inflammatory bowel disease specifically Crohn's. He has been on 6-mercaptopurine or 6-MP for a long time>12 years. -Dr. Pastor performed bidirectional endoscopy with findings such as polyps unrelated to inflammatory bowel disease. -His B12 level was decreased: 160 (low normal 180); myeloma work up negative. Retic index suggest hypoproliferation. Gastrin level was high, no parietal cell and intrinsic factor antibodies. -Etiology could be B12 deficiency, slow improvement after the correction of B12 level, suggesting possible overlapping myelodysplastic syndrome. This is unlikely due to 6-MP. -Continue Oral B12, see in 3 months with repeat CBC, update CMP, haptoglobin, LDH, and retic count. We discussed that he may need a bone marrow biopsy at somepoint concerning possible MDS, however not urgent. (2) Leucopenia As above, WBC counts are stable, no infections. (3) B12 deficiency Gastrin level was high, no parietal cell and intrinsic factor antibodies. -B12 level improved to >600 on oral B12 1000 mcg daily, continue. Repeat B 12 level periodically in the future. - Time with Patient Coordination of Care & Counseling Time: Greater than 50% of time spent with patient was for coordination of care (as documented) and [id number] counseling of patient and/or family. Dictated By: Harry Currie MD DD/ Signed By: <Electronically signed by Harry Currie MD> 05/26/1941 [facility] Work Phone: [phone] Progress note Author Harry Currie [facility] March 24, 2019 10:37am Note Date/Time March 24, 2019 10:31am [facility] [place] [address] Hem/Onc Follow Up Note - OP Signed Patient: Sis Johnson MR#: [id number] : 1950 Acct:[id number] Age/Sex: 68 / M Type: REG RCR Copies to: Rafael Kumar MD, MD~ Subjective Date/Time of Service: Date of Service: 03/24/2019 Time of Service: 10:30 Chief Complaint: 6 week follow up appt review lab work HPI: Mr. Johnson presents to discuss lab results and plan, he has been taking B12. Hereports good energy level, he denies fatigue, fever, chills, night sweats - Summary of Therapies Summary of Therapies: Oral B12 supplement 01/2019- ROS Details: All systems reviewed & no additional complaints except as documented - Extensive review of systems is negative for any abnormality. Pertinent to his anemia, he completely denies any fatigue, dizziness or lightheadedness, chest pain , dyspnea or orthopnea. Pertinent to his leukopeniahe denies any fever, chills or any symptoms of infection Subjective/ROS - Narrative: CONSTITUTIONAL: No weight loss, fever, chills, weakness or fatigue. CARDIOVASCULAR: No chest pain, chest pressure or chest discomfort. No palpitations or edema. RESPIRATORY: No shortness of breath, cough or hemoptysis. GASTROINTESTINAL: No dysphagia, nausea, vomiting or diarrhea. No abdominal pain,melena, hematochezia. GENITOURINARY: No dysuria, urinary frequency or urgency. NEUROLOGICAL: No headache, dizziness. MUSCULOSKELETAL: No back pain, or joint pain. [facility] - Medical History Medical History: Medical History (Last Reviewed 01/19/19 @ 15:47 by Ester Da Silva MD) Colon polyp Crohns disease Diabetes Former smoker GERD (gastroesophageal reflux disease) High blood pressure High cholesterol Iron deficiency anemia - Surgical History Surgical History: Surgical History (Last Reviewed 01/19/19 @ 13:09 by Myrtle Coyle RN) History of colonoscopy Hx of hand surgery - Family History Family History: Family History (Last Reviewed 01/19/19 @ 15:47 by Ester Da Silva MD) Father Brain tumor Mother Diabetes Mother Cancer - Social History Smoking Status: Former smoker Tobacco Type: cigarettes Substance Use Type: None Home Medications & Allergies Allergies lisinopril Allergy (Verified 01/13/19 09:13) Cough Home Medications gemfibrozil [Lopid] 600 mg PO BID 01/13/19 [History Confirmed 03/24/19] losartan 50 mg PO DAILY 01/13/19 [History Confirmed 03/24/19] mercaptopurine 2 tab PO DAILY 01/13/19 [History Confirmed 03/24/19] metformin 500 mg PO BID 01/13/19 [History Confirmed 03/24/19] omeprazole 20 mg PO DAILY 01/13/19 [History Confirmed 03/24/19] pioglitazone [Actos] 15 mg PO DAILY 01/13/19 [History Confirmed 03/24/19] simvastatin 10 mg PO QHS 01/13/19 [History Confirmed 03/24/19] cholecalciferol (vitamin D3) [Vitamin D3] 4,000 unit PO DAILY 01/19/19 [History Confirmed 03/24/19] vitamin P09-hopyy acid 1,000 mg PO DAILY 03/24/19 [History Confirmed 03/24/19] Objective - Height/Weight Height/Weight: Height 5 ft 10.87 in Weight 85.9 kg - Vital Signs Vital Signs: 03/24/19 10:04 Temperature 97.5 F L Pulse Rate [Left Brachial] 86 Respiratory Rate 20 Blood Pressure [Left Arm] 130/69 02 Sat by Pulse Oximetry 96 - Emotional Needs Assessment Emotional Needs Assessment: Emotional Needs Identified? No Distress Screening Total 0 Physical Exam Narrative: GENERAL APPEARANCE: In no acute distress. HEENT: Moist and clear EXTREMITIES: No edema. NEUROLOGIC: Grossly intact. Results - Labs Labs: Diagram of Most Recent CBC and CMP 03/20/19 12:35 Labs - Last 7 Days 03/20/19 12:35: Vitamin B12 455 03/20/19 12:35: WBC 3.9 L, Corrected WBC 3.9 L, RBC 3.31 L, Hgb 11.8 L, Hct 34.8L, MCV 105.3 H, MCH 35.7 H, MCHC 33.9, RDW 16.9 H, Plt Count 259, MPV 7.9, Neut % (Auto) 78.6, Lymph % (Auto) 7.8, [place] % (Auto) 10.7, Eos % (Auto) 2.3, Baso % (Auto) 0.6, Neut # (Auto) 3.1, Lymph # (Auto) 0.3 L, [place] # (Auto) 0.4, Eos # (Auto) 0.1, Baso # (Auto) 0.0, Nucleated RBC % (auto) 0.1 Assessment and Plan (1) Anemia Qualifiers: Anemia type: B12 deficiency Anemia and leukopenia, developed in 12/2018, MCV on the higher end. HE has long-standing history of inflammatory bowel disease specifically Crohn's. He has been on 6-mercaptopurine or 6-MP for a long time>12 years. -Dr. Pastor performed bidirectional endoscopy with findings such as polyps unrelated to inflammatory bowel disease. -His B12 level was decreased to 160 with low normal 180; myeloma work up negative. Retic index suggest hypoproliferation. Gastrin level was high, no parietal cell and intrinsic factor antibodies. -clinically well, etiology could be B12 deficiency versus myelodysplastic syndrome. This is unlikely due to 6-MP. Counts are improving on oral B12. -continue Oral B12, see in 2 months with repeat CBC and B12 level, sooner if he develop profound fatigue. if no improvement, will consider bone marrow biopsy. (2) Leucopenia As above, WBC counts are improving, no infections. (3) B12 deficiency Gastrin level was high, no parietal cell and intrinsic factor antibodies. -Continue Oral B12 1000 mcg daily. Repeat B 12 level in 2 months. - Time with Patient Coordination of Care & Counseling Time: Greater than 50% of time spent with patient was for coordination of care (as documented) and yigs-lp-[id number] counseling of patient and/or family. Dictated By: Harry Currie MD DD/ 1030 Signed By: <Electronically signed by Harry Currie MD> 03/24/19 1037 [facility] Work Phone: [phone] Progress note Author Harry Currie [facility] February 10, 2019 2:46pm Note Date/Time February 10, 2019 2:40 pm [facility] [place] [address] Hem/Onc Follow Up Note - OP Signed Patient: Sis Johnson MR#: [id number] : 1950 Acct:[id number] Age/Sex: 68 / M Type: REG RCR Copies to: Rafael Kumar MD, MD~ Subjective Date/Time of Service: Date of Service: 02/10/2019 Time of Service: 14:37 Chief Complaint: 2 week follow up appt review lab work - Diagnosis DIAGNOSIS: 1. Anemia and leukopenia, developed in 12/2018. -long-standing history of inflammatory bowel disease specifically Crohn's. He has been on 6-mercaptopurine or 6-MP for a long time>12 years. -Dr. Pastor performed bidirectional endoscopy with findings such as polyps unrelated to inflammatory bowel disease. -His B12 level was decreased to 160 with low normal 180; myeloma work up negative. Recti index suggest hypoproliferation. 2. B12 deficiency. -Gastrin level was high, no parietal cell and intrinsic factor antibodies. HPI: Mr. Johnson presents to discuss lab results and plan, he has not been taking B12 yet. He reports good energy level, he denies fatigue, fever, chills, night sweats ROS Details: All systems reviewed & no additional complaints except as documented - Extensive review of systems is negative for any abnormality. Pertinent to his anemia, he completely denies any fatigue, dizziness or lightheadedness, chest pain , dyspnea or orthopnea. Pertinent to his leukopeniahe denies any fever, chills or any symptoms of infection Subjective/ROS - Narrative: CONSTITUTIONAL: No weight loss, fever, chills, weakness or fatigue. CARDIOVASCULAR: No chest pain, chest pressure or chest discomfort. No palpitations or edema. RESPIRATORY: No shortness of breath, cough or hemoptysis. GASTROINTESTINAL: No dysphagia, nausea, vomiting or diarrhea. No abdominal pain,melena, hematochezia. GENITOURINARY: No dysuria, urinary frequency or urgency. NEUROLOGICAL: No headache, dizziness. MUSCULOSKELETAL: No back pain, or joint pain. [facility] - Medical History Medical History: Medical History (Last Reviewed 01/19/19 @ 15:47 by Ester Da Silva MD) Colon polyp Crohns disease Diabetes Former smoker GERD (gastroesophageal reflux disease) High blood pressure High cholesterol Iron deficiency anemia - Surgical History Surgical History: Surgical History (Last Reviewed 01/19/19 @ 13:09 by Myrtle Coyle RN) History of colonoscopy Hx of hand surgery - Family History Family History: Family History (Last Reviewed 01/19/19 @ 15:47 by Ester Da Silva MD) Father Brain tumor Mother Diabetes Mother Cancer - Social History Smoking Status: Former smoker Tobacco Type: cigarettes Substance Use Type: None Home Medications & Allergies Allergies lisinopril Allergy (Verified 01/13/19 09:13) Cough Home Medications gemfibrozil [Lopid] 600 mg PO BID 01/13/19 [History Confirmed 02/10/19] losartan 50 mg PO DAILY 01/13/19 [History Confirmed 02/10/19] mercaptopurine 2 tab PO DAILY 01/13/19 [History Confirmed 02/10/19] metformin 500 mg PO BID 01/13/19 [History Confirmed 02/10/19] omeprazole 20 mg PO DAILY 01/13/19 [History Confirmed 02/10/19] pioglitazone [Actos] 15 mg PO DAILY 01/13/19 [History Confirmed 02/10/19] simvastatin 10 mg PO QHS 01/13/19 [History Confirmed 02/10/19] cholecalciferol (vitamin D3) [Vitamin D3] 4,000 unit PO DAILY 01/19/19 [History Confirmed 02/10/19] Objective - Height/Weight Height/Weight: Height 5 ft 10.87 in Weight 85 kg - Vital Signs Vital Signs: 02/10/19 14:01 Temperature 97.7 F Pulse Rate [Left Brachial] 87 Respiratory Rate 20 Blood Pressure [Left Arm] 138/53 L 02 Sat by Pulse Oximetry 98 - Emotional Needs Assessment Emotional Needs Assessment: Emotional Needs Identified? No Distress Screening Total 0 Physical Exam Narrative: GENERAL APPEARANCE: In no acute distress. HEENT: Moist and clear, no oral thrush. LUNGS: Clear to auscultation bilaterally, no rales, rhonchi, or crackles. CARDIOVASCULAR: S1 and S2, regular rate and rhythm, no murmurs, gallops, rubs. ABDOMEN: Soft, nontender. No hepatosplenomegaly. No mass palpated. EXTREMITIES: No edema. NEUROLOGIC: Grossly intact. Results - Labs Labs: Labs - Last 7 Days 01/19/19 14:57: [facility] Flow Cytometry Assessment and Plan (1) Anemia Qualifiers: Anemia type: B12 deficiency Anemia and leukopenia, developed in 12/2018, MCV on the higher end. -clinically well, etiology could be B12 deficiency versus myelodysplastic syndrome. Recti index suggest hypoproliferation. This is unlikely due to 6-MP. -We will start oral B12, check in 6 weeks with repeat CBC and B12 level, sooner if he develop profound fatigue. if no improvement, will consider bone marrow biopsy. (2) Leucopenia As above (3) B12 deficiency Gastrin level was high, no parietal cell and intrinsic factor antibodies. -Start Oral B12 1000 mcg daily. Repeat B 12 level in 6 weeks. - Time with Patient Total Time Spent with Patient: 30 min Coordination of Care & Counseling Time: Greater than 50% of time spent with patient was for coordination of care (as documented) and nxhl-[id number]-[id number] counseling of patient and/or family. Dictated By: Harry Currie MD DD/ 1437 Signed By: <Electronically signed by Harry Currie MD> 02/10/19 1446 [facility] Work Phone: [phone]) [phone] Progress note Author Ester Da Silva [facility] January 19, 2019 3:57pm Note Date/Time January 19, 2019 3:40p [facility] at [address] [address] Hem/Onc Follow Up Note - OP Signed Patient: Sis Johnson MR#: [id number] : 1950 Acct:[id number] Age/Sex: 68 / M Type: REG RCR Copies to: Rafael Kumar MD, MD~ Subjective Date/Time of Service: Date of Service: 01/19/2019 Time of Service: 15:40 Chief Complaint: New patient appt low B12 HPI: Patient is here with his for evaluation and management of anemia and leukopenia. Patient has long-standing history of inflammatory bowel disease specifically Crohn's. He has been doing extremely well with no symptoms whatsoever to suggest enterocolitis. Because of the bicytopenias his medical information officer, Dr. Pastor appropriately did bidirectional endoscopy withfindings such as polyps unrelated to inflammatory bowel disease. He has been on6-mercaptopurine or 6-MP for a long time. He took a Remicade prior to this but developed lymphadenopathy so he was switched to 6-MP. Patient is completely asymptomatic from his anemia. He denies even mild fatigue let alone dyspnea, orthopnea, chest pain, dizziness or lightheadedness. In June 2018 his CBC was completely within normal limits. Beginning of December 2018 hemoglobin was slightly down to 12 and WBC 4.4. Few weeks later hemoglobin down to 10 with MCVof 99 and WBC of 2.7 with normal differential. His B12 level was decreased to 160 with low normal 180. ROS Details: All systems reviewed & no additional complaints except as documented - Extensive review of systems is negative for any abnormality. Pertinent to his anemia, he completely denies any fatigue, dizziness or lightheadedness, chest pain , dyspnea or orthopnea. Pertinent to his leukopeniahe denies any fever, chills or any symptoms of infection PMFSH - Medical History Medical History: Medical History (Last Reviewed 01/19/19 @ 15:47 by Ester Da Silva MD) Colon polyp Crohns disease Diabetes Former smoker GERD (gastroesophageal reflux disease) High blood pressure High cholesterol Iron deficiency anemia - Surgical History Surgical History: Surgical History (Last Reviewed 01/19/19 @ 13:09 by Myrtle Coyle RN) History of colonoscopy Hx of hand surgery - Family History Family History: Family History (Last Reviewed 01/19/19 @ 15:47 by Ester Da Silva MD) Father Brain tumor Mother Diabetes Mother Cancer - Social History Smoking Status: Former smoker Tobacco Type: cigarettes Substance Use Type: None Home Medications & Allergies Allergies Allergy/AdvReac Type Severity Reaction Status Date / Time lisinopril Allergy Cough Verified 01/13/19 09:13 Home Medications Medication Instructions Recorded Confirmed Type gemfibrozil [Lopid] 600 mg PO BID 01/13/19 01/19/19 History losartan 50 mg PO DAILY 01/13/19 01/19/19 History mercaptopurine 2 tab PO DAILY 01/13/19 01/19/19 History metformin 500 mg PO BID 01/13/19 01/19/19 History omeprazole 20 mg PO DAILY 01/13/19 01/19/19 History pioglitazone [Actos] 15 mg PO DAILY 01/13/19 01/19/19 History simvastatin 10 mg PO QHS 01/13/19 01/19/19 History cholecalciferol (vitamin D3) 4,000 unit PO DAILY 01/19/19 01/19/19 History [Vitamin D3] Objective - Height/Weight Height/Weight: Height 5 ft 10.87 in Weight 85.5 kg - Vital Signs Vital Signs: 01/19/19 13:11 Temperature 98 F Pulse Rate [Left Brachial] 88 Respiratory Rate 20 Blood Pressure [Left Arm] 142/68 H 02 Sat by Pulse Oximetry 98 - Emotional Needs Assessment Emotional Needs Assessment: Emotional Needs Identified? No Distress Screening Total 0 Physical Exam Narrative: Patient is awake alert and oriented x3; in no distress or discomfort. Vital signs stable, afebrile No lymphadenopathy or palpable masses; no thyromegaly No JVD, S3 or S4 Lungs are clear to auscultation No hepatosplenomegaly, tenderness or rebound tenderness No sensory or motor deficits; DTRs are 2+ and symmetrical No edema, cyanosis or clubbing Assessment and Plan - Chemo Plan Chemo Plan (Dose, Rate, Freq): Low B12; no symptoms of colitis or anything related that suggest pool or inadequate absorption of B12. We will make sure whether it is true pernicious anemia or just B12 deficiency by obtaining gastrin, parietal cell and intrinsic factor antibodies. If pernicious anemia he would need lifetime B12 injections; otherwise he can take oral/sublingual preparations Bicytopenia's; specifically leukopenia without neutropenia and anemia with high normal MCV. Possibilities include true pernicious anemia but also hematologicaldisorders such as plasma cell dyscrasia, he had a cell leukemia or even-albeit extremely rare-PNH. We will obtain comprehensive noninvasive testing including labs for pernicious anemia as well as serum protein electrophoresis, immunofixation, free light chains, flow cytometry and PI linked antigen that should explore all those possibilities. Other more likely possibility as well as 6 mercaptopurine despite being on it for a long time. Of course the definitive way to know this last possibility is bone marrow biopsy looking for myelosuppression. But it is invasive and more intelligently if the comprehensive testing is negative I would take him off this medication for a while and see if his counts improve. We will draw the labs today and asked the patient to come back in 1 to 2 weeks with results and further definitive recommendations - Time with Patient Coordination of Care & Counseling Time: Greater than 50% of time spent with patient was for coordination of care (as documented) and uycq-fu-jldw counseling of patient and/or family. Dictated By: Ester Da Silva MD DD/ 1540 Signed By: <Electronically signed by Ester Da Silva MD> 01/19/19 6751 [facility] Work Phone: [phone] History general Narrative - Reported* Type Description Date Medical History Crohn's disease Medical History 10/15/12 Colonoscopy- polyp, diverticulosis, quiescent colitis Medical History 10/17/11 Colonoscopy-tubular teddy mauricio, hyperplastic polyps Medical History 09/05/05 Colonoscopy-hyperplastic polyp Medical History 05/12/02 Colonoscopy-hyperplasti c polyp Medical History 11/26/00 Colonoscopy-Crohn's disea se Medical History 01/17/00 Colonoscopy-Crohn's coli tis-Dr Haywood Medical History 2013 EGD-erosive esophagit is Medical History 11/23/2015 [place]osco py- Hyperplastc rectal poylp, Diverticulosis, Hemorrhoids Medical History Crohn's disease Medical History Esophagitis, other specified typ e Medical History Tubular adenoma of colon Medical History Elevated blood pressure Surgical History Right hand surgery 2001 Hospitalization History see above [place] Digital Other Evaluation + Plan note Future Appointments Appointment Date:01/15/2023 08:30:00 AM Scheduled Provider:Giovany Pak Jr., MD Location:[facility] Appointment Type:URO Office Visit Diagnostic Tests Pending * PSA Total 01/09/22 [facility] evaluation + Plan note Future Appointments Appointment Date:01/29/2024 01:00:00 PM Scheduled Provider:ELOISE SALAZAR PA-C Location:[facility] Appointment Type:URO Office Visit Diagnostic Tests Pending * PSA Total 01/23/23 [facility] evalamxhyg note* Diagnosis Onset Date Resolution Status B12 deficiency acute Anemia chronic [facility] information [facility] Work Phone: Evaluation note* Diagnosis Onset Date Resolution Status Anemia chronic B12 deficiency chronic Folate deficiency chronic Leucopenia chronic [facility] Work Phone: Hospital course Narrative No data available for this section [facility] progress note No data available for this section [facility] proggght note Author Chana Matthews [facility] September 12, 2022 10:18am Note Date/Time September 12, 2022 9:57am [facility] [place] [address] Hem/Onc Follow Up Note - OP Signed with Addenda Patient: Sis Johnson MR#: [id number] : 1950 Acct:[id number] Age/Sex: 72 / M Type: REG RCR Copies to: MD John Queen MD~ ADDENDUM1 For completeness of record or adding diagnosis of Crohn's disease (K50.90) followed by gastroenterology Dr. Pastor. Addendum Dictated By: MD Chana Matthews Addendum Signed By: 09/12/221017 Addendum Cosigned By: DD/ TD/TT: 09/12/22 Subjective Date/Time of Service: Date of Service: 09/12/2022 Time of Service: 09:54 Chief Complaint: Patient is here today for a one year follow up visit for iron deficiency anemia and go over labs HPI: 09/12/2022: This is my first encounter with Mr. Johnson who has been followed in hematology clinic for about 4 years now. He was initially referred for leukopenia that was not associated with frequent infections or neurologic symptoms. He was diagnosed with B12 deficiency and anemia. He has Crohn's disease and he is followed with Dr. Pastor for over the last 25 years with norecent exacerbations. He does follow with Dr. Kumar his primary physician who sawhim recently and ordered a steroid for new onset back pain. Otherwise the patient has been doing well with no current complaints. We reviewed his laboratories showing white blood cell count is now 7100 (was 4406 months ago [id number] 1-year ago). He previously was noted to have macrocytosis without significant anemia which is now resolved. He is noted on labs to have elevated B12 with oral repletion at 1327. His folic acid level is mildly reduced at 5.5. Since the patient has resolution of his cytopenias on oral B12 therapy 1000 mcgdaily and we are now adding folic acid 1 mg daily for his mild deficiency of folate, he should not require routine follow-up in hematology but may be referred back by his primary physician Dr. Kumar if he has symptomatic cytopenias. The patient is in agreement with this plan. Low complexity 25-minute follow-upvisit. 09/15/2021: Mr. Johnson presents in follow-up for his B12 deficiency and anemia. He reports good energy, but does think he may tire out a bit easier over the last year. He denies fever, chills, night sweats, no signs of bleeding, no new pains. His labs are stable, however hgb did drop slightly to 12.9. We discussed that last year Dr. Currie had him drop his B12 supplement from 4 pills/day to 1 pill/day, and this may have caused the slight drop in hgb and his energy. We will increase this to 2 pills/day and re-evaluate again in 1 year. We will have him schedule with either Dr. Rojo or Dr. Matthews in 1 year at follow-up, to establish care. We will check a cbc, cmp, iron studies and B12 at that time. - Summary of Therapies Summary of Therapies: Oral B12 supplement 01/2019-present ROS Details: All systems reviewed & no additional complaints except as documented - Extensive review of systems is negative for any abnormality. Pertinent to his anemia, he completely denies any fatigue, dizziness or lightheadedness, chest pain , dyspnea or orthopnea. Pertinent to his leukopeniahe denies any fever, chills or any symptoms of infection Subjective/ROS - Narrative: CONSTITUTIONAL: No weight loss, fever, chills, weakness or fatigue. CARDIOVASCULAR: No chest pain, chest pressure or chest discomfort. No palpitations or edema. RESPIRATORY: No shortness of breath, cough or hemoptysis. GASTROINTESTINAL: No dysphagia, nausea, vomiting or diarrhea. No abdominal pain,melena, hematochezia. Followed by Dr. Pastor for Crohn's disease. GENITOURINARY: No dysuria, urinary frequency or urgency. NEUROLOGICAL: No headache, dizziness. No peripheral neuropathy symptoms or gaitdisturbance other than secondary to his back pain. MUSCULOSKELETAL: 1 week history of back pain pending steroid that was ordered byher primary care (patient notes this happens about once a year). Denies joint pain. PMFSH - History Attestation statement: The following information was validated with the patient. Source: Old Records Reviewed - Medical History Medical History: Medical History (Last Reviewed 09/12/22 @ 10:08 by Chana Matthews MD) Colon polyp Crohns disease Diabetes Former smoker GERD (gastroesophageal reflux disease) High blood pressure High cholesterol Iron deficiency anemia - Surgical History Surgical History: Surgical History (Last Reviewed 09/12/22 @ 10:08 by Chana Matthews MD) History of colonoscopy Hx of hand surgery - Family History Family History: Family History (Last Reviewed 09/12/22 @ 10:08 by Chana Matthews MD) Father Brain tumor Mother Diabetes Cancer - Social History Smoking Status: Former smoker Tobacco Type: cigarettes Substance Use Type: None Home Medications & Allergies Allergies lisinopril Allergy (Verified 09/12/22 09:46) Cough Home Medications gemfibrozil 600 mg tablet (Lopid) 600 mg PO BID 01/13/19 [History Confirmed 09/12/22] losartan 50 mg tablet 50 mg PO DAILY 01/13/19 [History Confirmed 09/12/22] metformin 500 mg tablet 1,000 mg PO BID 01/13/19 [History Confirmed 09/12/22] omeprazole 20 mg tablet,delayed release 20 mg PO DAILY 01/13/19 [History Confirmed 09/12/22] pioglitazone 15 mg tablet (Actos) 15 mg PO DAILY 01/13/19 [History Confirmed 09/12/22] simvastatin 10 mg tablet 10 mg PO QHS 01/13/19 [History Confirmed 09/12/22] cholecalciferol (vitamin D3) 25 mcg (1,000 unit) capsule (Vitamin D3) 4,000 unitPO DAILY 01/19/19 [History Confirmed 09/12/22] vitamin B12 0.5 mg-folic acid 1 mg tablet 1,000 mg PO DAILY 03/24/19 [History Confirmed 09/12/22] tamsulosin 0.4 mg capsule 0.4 mg PO DAILY 09/15/21 [History Confirmed 09/12/22] Objective - Height/Weight Height/Weight: Height 5 ft 10.87 in Weight 91.4 kg - Vital Signs Vital Signs: 09/12/22 09:46 Temperature 97.0 F L Pulse Rate [Left Brachial] 80 Respiratory Rate 16 Blood Pressure [Left Arm] 167/92 H 02 Sat by Pulse Oximetry 98 Oxygen Delivery Method Room Air - Distress Screening Distress Screen Results: RN Distress Screening Start: 01/19/19 12:47 Freq: Status: Active Protocol: Document 05/26/19 09:00 (Rec: 05/26/19 09:00 [email or web address]) Distress Screening Distress Score: 0 No worry/distress Distress Screening Total 0 Physical Exam Narrative: GENERAL APPEARANCE: Alert and oriented. In no acute distress. HEENT: Normocephalic, atraumatic. Moist and clear. LUNGS: Clear to auscultation bilaterally, no rales, rhonchi, or crackles. CARDIOVASCULAR: S1 and S2, regular rate and rhythm, no murmurs, gallops, rubs. ABDOMEN: Soft, nontender. No hepatosplenomegaly. No mass palpated. EXTREMITIES: No cyanosis, clubbing, or edema. NEUROLOGIC: Cranial nerves grossly intact. - ECOG Performance Status ECOG Score: 1 - Impaired gait due to back pain. Results - Labs Labs: Diagram of Most Recent CBC and CMP 09/04/22 14:20 09/04/22 14:20 - Impressions LIMITED ABDOMINAL ULTRASOUND: CLINICAL HISTORY: Fatty liver. COMPARISON: Liver ultrasound 11/21/2021 TECHNIQUE: Grayscale and color Doppler images of the right upper quadrant organswere obtained. FINDINGS: Pancreas: Visualized portions appear unremarkable. Liver: Fatty infiltration. No focal mass or intrahepatic ductal dilatation. Hepatopedal flow is seen within the portal vein. Gallbladder: Unremarkable CBD: 3.9 mm US/US liver IMPRESSION: FATTY INFILTRATION WITHOUT ACUTE PROCESS.. Impression dictated by: Chris Kolb Jr., D.O.05/25/2022 1:45 PM Assessment and Plan (1) Folate deficiency Anemia and leukopenia, developed in 12/2018, MCV high. He has long-standing history of inflammatory bowel disease specifically Crohn's. He has been on 6-mercaptopurine or 6-MP for a long time>12 years. -Dr. Pastor performed bidirectional endoscopy with findings such as polyps unrelated to inflammatory bowel disease. no evidence of hemolysis. -His B12 level was decreased: 160 (low normal 180); myeloma work up negative. Retic index suggest hypoproliferation. Gastrin level was high, no parietal cell and intrinsic factor antibodies. -Etiology could be B12 deficiency, slow improvement after the correction of B12 level, suggesting possible overlapping myelodysplastic syndrome. This is unlikely due to 6-MP. Hgb normalized on this visit. -Continue Oral B12, see in 1 year with repeat CBC. 09/15/2021: hgb slightly decreased to 12.9 in July, B12 decreased as well but is not deficient by any means. He did decrease his B12 supplement from 4 pills/day to 1 pill/day at his visit 1 year ago. We will increase this to 2 pills/day and re-evaluate at his next visit. 09/12/2022: Leukopenia has now recovered to normal 7100 (a lot of this may have been related to his prior immunosuppressive therapy). He is compliant with osac-jdd-rtxzffq B12 supplement. Laboratories ordered by nurse practitioner Franco 1 year ago now show folic acid deficiency without associated anemia orleukopenia. We are adding hfuh-ygc-cvsqoan folate supplement 1 mg daily to his B12 supplementation. Since patient has resolution of leukopenia and anemia, he may follow-up his nutritional deficiencies with primary care Dr. Bingham be referred back to hematology on an as-needed basis. Low complexity 25-minute visit. (2) Leucopenia As above, WBC counts have now recovered to normal, no infections. CBC in a year with primary care. (3) B12 deficiency Gastrin level was high, no parietal cell and intrinsic factor antibodies. -B12 level improved to >2000 on oral B12 1000 mcg daily, continue. Repeat B12/folate level in a year 07/2021. 09/15/2021: B12 level in July decreased since decreasing his B12 supplement from 4 pills/day to 1 pill/day. His levels remain ok/high but energy may have dropped slightly over the last year and his hgb is now 12.9. We will increase his dosing to 2 pills/day and re-evaluate in 1 year. He will call in sooner if symptoms worsen or new symptoms arise. 09/12/2022: B12 level is elevated due to oral repletion. Given his longstanding Crohn's I would not further reduce his vitamin B12 based on his level. If he develops macrocytic anemia, frequent infections, or peripheral neuropathy symptoms he may be referred back to hematology for reevaluation and possible parenteral therapy. - Chemo Plan Chemo Plan (Dose, Rate, Freq): B12 and folate repletion - Time with Patient Time Spent with Patient (Follow Up Visit): 25 minutes Coordination of Care & Counseling Time: Greater than 50% of time spent with patient was for coordination of care (as documented) and elnu-pz-bwnw counseling of patient and/or family. Dictated By: Chana Matthews MD DD/ [id number] Signed By: <Electronically signed by MD Chana Matthews> 09/12/22 1014 [facility] Work Phone: Advance Directives No Advanced Directives Records Found Advance Directive Response Recorded Date/ Time Advance Directives No June 28, 2017 4:41pm Advance Directive Response Recorded Date/ Time Advance Directives No June 28, 2017 3:41pm Chief Complaint and Reason for Visit Chief Complaint low vitamin b12 history of colon polyps Reason for Visit B12 deficiency Anemia Leucopenia Chief Complaint K76.0 K74.00 Fatty Liver, Liver Fibrosis Chief Complaint k76.0 k74.00 Chief Complaint low vitamin b12 Reason for Visit B12 deficiency Anemia Leucopenia Chief Complaint low vitamin b12 k76.0 k74.00 Reason for Visit Anemia B12 deficiency Folate deficiency Leucopenia Chief Complaint LFTs Family History No Family History Records Found Relationship Condition Age at Onset Recorded Date/T rob father Neoplasm of brain Unknown Not Specified Diabetes mellitus Unknown Not Specified Malignant neoplasm Unknown Relationship Condition Age at Onset Recorded Date/T rob father Neoplasm of brain Unknown Not Specified Diabetes mellitus Unknown Malignant neoplasm Unknown Relationship Condition Age at Onset Recorded Date/T rob father Neoplasm of brain Unknown Not Specified Diabetes mellitus Unknown Malignant neoplasm Unknown father Malignant neoplasm Unknown Neoplasm of brain Unknown Unknown Summary Purpose Additional Source Comments Source Comments (unrecognize d section and content) In the event this informatio n is protected by the Federal Confidentiality of Alcohol and Drug Abuse Patient Records regulations: The Federal rules restrict any use of the information to criminally investigate or prosecute any alcohol or drug abuse patient.[facility] Care Team (unrecognized sect ion and content) Team Status: Active Member Role Status Dilip Kumar MD Primary Care Provider Active Team Status: Inactive Member Role Status Dates Rafael Kumar MD Primary Care Provider Active Start: January 09, 2024 End: January 09, 2024 Quang Lima MD Attending Provider Active Start: January 09, 2024 End: January 09, 2024 Team Status: Inactive Member Role Status Dates Rafael Kumar MD Primary Care Provider Active John Johnson MD Attending Provider Active Team Status: Active Member Role Status Dates Rafael Kumar MD Primary Care Provider Active oJhn Johnson MD Referring Provider Active Harry Currie MD Active Maria T García APRN Attending Provider Actdelmer stauffer REASON FOR VISIT (unrecogniz ed section and content) PATIENT HERE FOR 6 MONTH FOL LOW UP TO CROHNS. PATIENT WAS TO HAVE LABS COMPLETED.PATIENT HERE FOR FOLLOW UP TO FATTY LIVER. PATIENT WAS TO HAVE FIBROSCANPT HERE FOR 3 MONTH FOLLOW UP TO FATTY LIVER AND CROHNS.PATIENT HERE FOR 3 MONTH FOLLOW UP FATTY LIVER AND LIVER FIBROSIS. PATIENT WAS TO STOP IMURAN, START VITAMIN E, MILK THISTLE AND LABS AND ULTRASOUND. (unrecognized sect ion and content) No Status Records FoundNo Status Records FoundNo Status Records Found INFORMATION SOURCE (unrecogn ized section and content) DATE CREATED AUTHOR 05/20/2022 [facility] DATE CREATED AUTHOR AUTHOR'S ORGANIZ ATION 10/18/2023 [facility] DATE CREATED AUTHOR AUTHOR'S ORGANIZ ATION 01/17/2024 [facility] Goals (unrecognized section and content) Goals may be documented in a n alternate section FOR RECORDS PERTAINING TO PATIENTS WHO ARE OR HAVE BEEN ENROLLED IN A CHEMICAL DEPENDENCY/SUBSTANCEABUSE PROGRAM, SOME INFORMATION MAY BE OMITTED. This clinical summary was aggregated from multiple sources. Caution should be exercised in using it in the provision of clinical care. This summary normalizes information from multiple sources, and as a consequence, information in this document may materially change the coding, format and clinical context of patient data. In addition, data may be omitted in some cases. CLINICAL DECISIONS SHOULD BE BASED ON THE PRIMARY CLINICAL RECORDS. [facility] [employer] [facility]. provides no warranty or guarantee of the accuracy or completeness of information in this document.
[2024-01-24 13:31] LABS: Prostate Specific Antigen Dx 3.99 ng/mL (<=4.00)
== END 2024-01-24 11:59 | disposition home or self-care (01) ==
LOC: LAB 12:03
PROVIDERS: PCP Family Medicine; Visit Provider Physician Assistant
DX: N20.0 Calculus of kidney (principal); R97.20 Elevated prostate specific antigen [PSA]; N40.0 Benign prostatic hyperplasia without lower urinary tract symptoms
CPT/HCPCS: 36415; 84153

== ENCOUNTER 2024-08-05 10:34 | Outpatient (OUT) | payer MEDICARE, SELFPAY ==
[2024-08-05 11:05] LABS: Basophils Absolute Auto 0.1 10^3/uL (0.0-0.1); Basophils Percent Auto 0.6 % (0.2-2.0); Eosinophils Absolute Auto 0.2 10^3/uL (0.0-0.7); Eosinophils Percent Auto 2.9 % (0.9-7.0); Hematocrit 42.8 % (42.0-54.0); Hemoglobin 13.7 g/dL (14.0-18.0); Immature Granulocytes Abs Auto 0.05 10^3/uL (0.00-0.03); Immature Granulocytes Pct Auto 0.6 % (0.0-0.5); Lymphocytes Percent Auto 11.6 % (20.5-60.0); Mean Corpuscular Hemoglobin 29.6 pg (25.9-34.0); Mean Corpuscular Volume 92.4 fL (80.0-94.0); Mean Platelet Volume 10.1 fL (9.5-13.5); Monocytes Absolute Auto 0.7 10^3/uL (0.3-0.8); Monocytes Percent Auto 8.7 % (1.7-12.0); Neutrophils Absolute Auto 6.3 10^3/uL (1.4-6.5); Neutrophils Percent Auto 75.6 % (43.0-75.0); Platelet Count 248 10^3/uL (150-450); Red Blood Count 4.63 10^6/uL (4.70-6.10); Red Cell Distribution Width 12.9 % (11.0-15.0); White Blood Count 8.3 10^3/uL (4.0-11.0)
[2024-08-05 11:13] LABS: Estimated Average Glucose 171 mg/dL; Glycohemoglobin A1C 7.6 % (4.5-6.2)
[2024-08-05 11:42] LABS: Alanine Aminotransferase 34 U/L (16-63); Albumin Globulin Ratio 1.1; Albumin Level 3.8 g/dL (3.4-5.0); Alkaline Phosphatase 71 U/L (46-116); Anion Gap 11.5; Aspartate Amino Transferase 22 U/L (15-37); BUN Creatinine Ratio 22.7; Bilirubin Total 0.6 mg/dL (0.2-1.0); Calcium 9.8 mg/dL (8.5-10.1); Carbon Dioxide 30.4 mmol/L (21.0-32.0); Chloride 105 mmol/L (98-107); Cholesterol 163 mg/dL (<=200); Estimated GFR (African America >60 (>=60 mL/min/1.73m^2); Estimated GFR (Non-African Ame 53 (>=60 mL/min/1.73m^2); Globulin 3.6 g/dL; Glucose 172 mg/dL (74-106); HDL Cholesterol 55 mg/dL (40-60); LDL Cholesterol Calculated 83.6 mg/dL; Potassium 4.9 mmol/L (3.5-5.1); Sodium 142 mmol/L (136-145); Thyroid Stimulating Hormone 2.636 uIU/mL (0.358-3.740); Total Protein 7.4 g/dL (6.4-8.2); Triglycerides 122 mg/dL (<=150); Uric Acid 6.3 mg/dL (3.5-7.2); VLDL CHOLESTEROL 24.4 mg/dL
[2024-08-05 11:49] LABS: Prostate Specific Antigen Scrn 4.84 ng/mL (<=4.00)
[2024-08-06 10:11] LABS: Insulin 14.9 uIU/mL (2.6-24.9)
[2024-08-07 09:12] LABS: Prostate Specific Ag 3.9 ng/mL (0.0-4.0)
== END 2024-08-05 10:35 | disposition home or self-care (01) ==
LOC: LAB 10:35
PROVIDERS: PCP Family Medicine; Visit Provider Family Medicine
DX: K50.90 Crohn's disease, unspecified, without complications (principal); K75.81 Nonalcoholic steatohepatitis (NASH); I10 Essential (primary) hypertension; N40.0 Benign prostatic hyperplasia without lower urinary tract symptoms; E11.9 Type 2 diabetes mellitus without complications; E78.5 Hyperlipidemia, unspecified; R53.83 Other fatigue; Z12.12 Encounter for screening for malignant neoplasm of rectum; E03.9 Hypothyroidism, unspecified; Z12.5 Encounter for screening for malignant neoplasm of prostate; R97.20 Elevated prostate specific antigen [PSA]
CPT/HCPCS: 36415; 80053; 80061; 83036; 83525; 84153; 84154; 84436; 84443; 84481; 84550; 85025; G0103

== ENCOUNTER 2025-05-13 12:46 | Outpatient (OUT) | payer MEDICARE, SELFPAY ==
--- OUTSIDE RECORDS SUMMARY | 2025-05-13 12:53 | XMS_ITS | Clinical Summary ---
Author Organization [facility] Address [address] [place] [address] Phone Care Team Providers Care Enhanced Environmental Operator Name Role Phone Unavailable Primary Care Provider Unavailabl e Social History Tobacco UseTypesPacks/DayYears UsedDateSmoking Tobacco: Never AssessedSex and Gender InformationValueDate RecordedSex Assigned at BirthNot on fileLegal Sex Male06/16/2022 8:31 AM ESTGender IdentityNot on fileSexual OrientationNot on file Plan of Treatment Not on file
--- OUTSIDE RECORDS SUMMARY | 2025-05-13 12:53 | XMS_ITS | Clinical Summary ---
Author Organization [facility] Address [address] [place], [place] [id number] Care Team Providers Care Powerhouse Mechanic Supervisor Name Role Phone Unavailable Primary Care Provider Unavailabl e Social History Tobacco UseTypesPacks/DayYears UsedDateSmoking Tobacco: Never AssessedArea Deprivation IndexAnswerDate RecordedNational Score (1-100), lower number is lower riskNot on file07/27/2020tate Score (1-10), lower number is lower riskNot on file07/27/2020ata from: https://www.neighborhoodatlas.medicine.[facility].edu/. Last address used for calculationNot on file07/27/2020ex and Gender Information ValueDate RecordedSex Assigned at BirthNot on fileLegal HflGgzu44/16/2020 8:57 AM ESTGender IdentityNot on fileSexual OrientationNot on file Plan of Treatment Health MaintenanceDue DateLast DoneCommentsAnxiety Slvvfqqwe11/22/1968Depression Isiqmvyii07/22/1968Hepatitis C Zwyptgrqe58/22/1968DTaP,Tdap,Td Vaccine (1 - Tdap)1969Lipid Yzdbbrwpc27/22/1985CT Hlmcvlquvdby18/22/1995Cologuard (FIT-DNA)05/12/19956637Wgpffnzddvx71/22/1995Colorectal Cancer Hnttltegr90/22/1995 Diabetes Jpycorqtn58/22/1995Fecal Occult Blood05/12/19954718Olgdifxhkhlsj26/22/1995 Shingrix Vaccine (1 of 2)2000Pneumococcal Vaccine: 50+ (2 of 2 - PCV) Advance Directive Ltpewyxqrz77/01/2025ovid-19 Vaccine (1 - 2024- season)2025Influenza Vaccine (#1)RSV Vaccine (1 - 1-dose 75+ series)2025 Insurance SARAH SHANKAR [id number] Advance Directives TypeDate RecordedPatient RepresentativeExplanationAdvance Directive(s)12/31/2021 1:45 PM
--- OUTSIDE RECORDS SUMMARY | 2025-05-13 12:55 | XMS_ITS | CCD ---
Author Organization [facility] Care Team Providers Care Studio Grip Name Role Phone Unavailable Primary Care Provider Po Kay Primary Care Provider Harry Currie Attending Provider [phone] John Morris Attending Provider Rafael Erazo Primary Care Physician John Morris Unavailable MD Rafael Erazo Primary Care Provider [phone] MD John Morris Attending Provider DR RAFAEL ERAZO Admitting Unavailable CASTRO, DR YOUNG Primary Care Unavailable CASTRO, DR YOUNG Consulting Unavailable CASTRO, DR YOUNG Attending Unavailable PASHA GORDON, DR GIOVANY Webster Admitting Unavailakin PAK JR, DR GIOVANY Webster Consulting Unavailakin PAK JR, DR GIOVANY Webster Attending Unavailakin ERAZO, DR YOUNG Primary Care Unavailable KARLA GALEANO Admitting Unavailable KARLA GALEANO Consulting Unavailable KARLA GALEANO Attending Unavailable DR RAFAEL ERAZO Primary Care Unavailable TANO, DR RHODES Admitting Unavailable TANO, DR RHODES Consulting Unavailable TANO, DR RHODES Attending Unavailable DR RAFAEL ERAZO Primary Care Unavailable DR NATHALIA GATES Consulting Unavailable MD Rafael Erazo Primary Care Provider MD John Morris Attending Provider MD Rafael Erazo Primary Care Provider [phone] MD John Morris Referring Provider [phone] RAGINI García Attending Provider MD Rafael Erazo Primary Care Provider MD John Morris Referring Provider RAGINI García Katherine Attending Provider MD John Morris Attending Provider MD Rafael Erazo Primary Care Provider [phone] MD Quang Lima Attending Provider [phone] MD Rafael Erazo Primary Care Provider [phone] MD Clarence Imtyler Attending Provider Asaad, Imad Admitting Unavailable Rafael Erazo Primary Care Unavailable Asaad, Imad Attending Unavailable Asaad, Imad Attending Unavailable Asaad, Imad Admitting Unavailable Rafael Erazo Primary Care Unavailable Asaad, Imad Admitting Unavailable Rafael Erazo Primary Care Unavailable Asaad, Imad Attending Unavailable Vi Corbett Attending Unavailable Allergies Allergy ClassificationReported Allergen(s)Allergy TypeDate of OnsetReaction(s) FacilityAngiotensin Converting Enzyme (SEDRICK) Inhibitors (1 source)LisinoprilDrug Lqfxdip84-59-4365MraohHpxpqotph [facility] (12 sources)Lisinopril; Translations: [lisinopril]Drug Vodemgb85-17-5449Phxlo (finding)Soundl.ly Other (1 source)Amino AcidsDrug Mkeafzp63-77-0743FoqGerman [facility] Rep[facility] (1 source)LisinoprilDrug Vfgospv22-55-2542XikrpzeloDelaware [facility] Hospital [facility] (1 source)No Known Medication Allergies; Translations: [No Known Medication Allergies]Propensity to adverse reactions (disorder)[facility] Repository Medications Current Medications MedicationDrug Class(es)DatesSig (Normalized)Sig (Original)B-12 1000 mcg oral tablet (3 sources)Start: 40-49-7505W-12 1000 mcg oral tablet Refills(s) 0 Start Date: 06/07/20 Status: Orderedfolic acid 0.4 mg oral tablet (3 sources)Start: 76-73-6013wlpa 0.4 mg by mouth once dailyFolic Acid Active 0.4 MG PO Daily March 12, 2024 12:00amglimepiride (4 sources)SulfonylureaGlimepiride Activeirbesartan 300 mg oral tablet (4 sources)Angiotensin 2 Receptor BlockerStart: 32-35-3166ztrd 300 mg by mouth once dailyIrbesartan Active 300 MG PO Daily March 12, 2024 12:00amStart: 89-70-3011wlttzodher Oral, Daily, Refills(s) 0 Start Date: 02/04/24 Status: OrderedIron (6 sources)Start: 14-18-1935wnod 65 mg by mouth once dailyiron Active 65 MG PO Daily March 12, 2024 12:00amStart: 11-88-1578ppvh Active PO Daily March 12, 2024 12:00amStart: 50-43-6856ozom iron Start Date: 06/08/20 Status: Orderedmercaptopurine 50 mg oral tablet (14 sources)Nucleoside Metabolic InhibitorStart: 94-50-6954qcaidlksreqill 50 mg Tab Refills(s) 0 Start Date: 06/07/20 Status: OrderedStart: 01-13-2019 End: 98-15-0560oeld 2 tablets by mouth once dailyMercaptopurine Discontinued 2 TAB PO Daily January 13, 2019 12:00am September 12, 2022 10:45amtake 2 tablets by mouth once dailyMercaptopurine 50 TAKE TWO TABLETS BY MOUTH DAILY orally daily for 90 day(s) ActivemetFORMIN hydrochloride 500 mg oral tablet (17 sources)BiguanideStart: 73-50-9475gxua 1 tablet by mouth twice daily Glucophage 500 mg oral tablet 500 mg = 1 tab(s), Oral, BID, # 180 tab(s), Refills(s) 0 Start Date: 06/07/20 Status: OrderedStart: 78-36-9503lovv 1000 mg by mouth twice dailyMetformin Active 1000 MG PO Twice daily January 13, 2019 12:00amtake 2 tablets by mouth every twelve hoursmetFORMIN HCl 500 mg 2 tablet with meals Orally bid Activeolmesartan medoxomil 20 mg oral tablet (1 source)Angiotensin 2 Receptor BlockerStart: 83-77-8903Kszckwh 20 mg Tab Refills(s) 0 Start Date: 06/07/20 Status: OrderedOmeprazole (17 sources)Proton Pump InhibitorStart: 07-86-2248Qszpqsjqky 20 mg Cap - DR Refills(s) 0 Start Date: 06/07/20 Status: OrderedStart: 63-09-7280Fjmihkauhv 20 mg Cap - DR Refills(s) 0 Start Date: 06/07/20 Status: OrderedStart: 01-13-2019 take 20 mg by mouth once dailyOmeprazole Active 20 MG PO Daily January 13, 2019 12:00amtake 1 capsule by mouth once dailyOmeprazole 20 TAKE ONE CAPSULE BY MOUTH DAILY orally Daily for 90 day(s) Activepioglitazone 30 mg oral tablet (19 sources)Peroxisome Proliferator Receptor alpha Agonist, Peroxisome Proliferator Receptor gamma Agonist, ThiazolidinedioneStart: 14-53-3171sqkf 1 tablet by mouth once dailyPioglitazone (Actos) 30 mg tablet Active 30 MG PO Daily March 12, 2024 12:00amStart: 11-84-7766cjht 1 mg by mouth once daily pioglitazone 30 mg Tab mg tab(s), Oral, Daily, Refills(s) 0 Start Date: 02/04/24 Status: OrderedStart: 01-13-2019 End: 83-90-2979cgmw 1 tablet by mouth once dailyPioglitazone (Actos) 15 mg Tablet Discontinued 15 MG PO Daily January 13, 2019 12:00am March 12, 2024 10:56amsimvastatin 20 mg oral tablet (20 sources)HMG-CoA Reductase InhibitorStart: 16-09-2369xzra 20 mg by mouth once dailySimvastatin Active 20 MG PO Daily March 12, 2024 12:00amStart: 01-13-2019 End: 81-53-5406baww 10 mg by mouth once daily at bedtimeSimvastatin Discontinued 10 MG PO Daily at bedtime January 13, 2019 12:00am March 12, 2024 10:56am Timolol (4 sources)beta-Adrenergic BlockerTimolol Maleate ActiveTriamcinolone (1 source)CorticosteroidStart: 00-44-9697Anwmdxdbgvwuu Acetonide Refills(s) 0 Start Date: 06/07/20 Status: Orderedvitamin B12 (7 sources)Vitamin X25Nqkwi: 56-27-5074ssor 1000 mg by mouth once dailyvitamin b12 Active 1000 MG PO Daily March 12, 2024 12:00amStart: 41-23-4651tsfduzv b12 Active PO Daily March 12, 2024 12:00amVitamin B 12 ActiveVitamin D3 (4 sources)Vitamin D3 Active Completed/Discontinued Medications MedicationDrug Class(es)DatesSig (Normalized)Sig (Original)cholecalciferol 0.025 mg oral tablet (13 sources)Vitamin DStart: 29-25-3026xzhn 1 tablet by mouth once daily cholecalciferol 1000 intl units oral tablet 1,000 International_Unit = 1 tab(s), Oral, Daily, # 30 tab(s), Refills(s) 0 Start Date: 06/08/20 Status: Ordered Start: 25-43-6879btjy 1 tablet by mouth once dailycholecalciferol 1000 intl units oral tablet 1,000 International_Unit = 1 tab(s), Oral, Daily, # 30 tab(s), Refills(s) 0 Start Date: 06/08/20 Status: OrderedStart: 80-26-0826cmzb 4 capsules by mouth once dailyCholecalciferol (Vitamin D3) (Vitamin D3) 1,000 unit Capsule Active 4000 UNIT PO Daily January 19, 2019 12:00amfolic acid 1 mg / vitamin b12 0.5 mg oral tablet (10 sources)Vitamin V02Vtwjz: 03-24-2019 End: 85-49-8976iujz 1000 mg by mouth once dailyVitamin Y15-Qaxnl Acid Discontinued 1000 MG PO Daily March 24, 2019 12:00am March 12, 2024 1 0:57amgemfibrozil 600 mg oral tablet (17 sources)Peroxisome Proliferator Receptor alpha AgonistStart: 01-13-2019 End: 61-17-3444uoex 1 tablet by mouth twice dailyGemfibrozil (Lopid) 600 mg Tablet Discontinued 600 MG PO Twice daily January 13, 2019 12:00am 2023 10:55amlosartan potassium 50 mg oral tablet (16 sources)Angiotensin 2 Receptor BlockerStart: 01-13-2019 End: 61-45-6071xvnb 50 mg by mouth once dailyLosartan Discontinued 50 MG PO Daily January 13, 2019 12:00am March 12, 2024 10:55amMilk thistle extract (4 sources)Start: 03-12-2024 End: 99-31-1578tunp thistle Discontinued PO Twice daily March 12, 2024 12:00am April 09, 2024 8:25amStart: 77-74-1505jhlb thistle Active PO Twice daily March 12, 2024 12:00amMilk Thistle ActiveResmetirom (2 sources)Start: 03-12-2024 End: 81-33-2965arfg 1 tablet by mouth once dailyResmetirom (Rezdiffra) 80 mg tablet Discontinued 80 MG PO Daily March 12, 2024 12:00am April 09, 2024 8:27am Take 1 tablet orally once dailytamsulosin hydrochloride 0.4 mg oral capsule (14 sources)alpha-Adrenergic BlockerStart: 06-07-2020 End: 26-89-6537qrrs 0.4 mg by mouth once dailyTamsulosin Discontinued 0.4 MG PO Daily September 15, 2021 1:00am March 12, 2024 10:56amTamsulosin HCl Active Vitamin E (4 sources)Start: 03-12-2024 End: 03-56-6698nourwtb e Discontinued PO Daily March 12, 2024 12:00am April 09, 2024 8:25amStart: 00-94-8387aokwcjn e Active PO Daily March 12, 2024 12:00amVitamin E Active Problems Active Problems Problem ClassificationProblemDateDocumented DateEpisodic/ChronicCalculus of urinary tract (10 sources)Kidney stone; Translations: [Calculus of kidney]Onset: 07-03-2021 EpisodicCongestive heart failure; nonhypertensive (1 source)Unspecified diastolic (congestive) heart failure; Translations: [UNSPECIFIED DIASTOLIC HEART FAILURE]Onset: 40-24-8271WydwvyeMsbpiyquti and other anemia (14 sources)Anemia; Translations: [Anemia, unspecified]93-40-3309Bryxogyv Deficiency and other anemia (3 sources)Anemia, unspecified; Translations: [Anemia, unspecified]Episodic Deficiency and other anemia (4 sources)Iron deficiency anemia; Translations: [Iron deficiency anemia, unspecified]EpisodicDiabetes mellitus without complication (4 sources)Diabetes mellitus; Translations: [Type 2 diabetes mellitus without complications]Onset: 874964-44-0982EvgmjmmVbcswmak of white blood cells (16 sources)Leukopenia; Translations: [Decreased white blood cell count, unspecified]ChronicDisorders of lipid metabolism (4 sources)Hyperlipidemia; Translations: [Hyperlipidemia, unspecified]Onset: 931102-10-5932SvvhvtlUtylesqdlokigw and diverticulitis (7 sources)Diverticular disease; Translations: [Diverticulosis of intestine, part unspecified, without perforation or abscess without bleeding]06-07-2020 ChronicEsophageal disorders (7 sources)Gastroesophageal reflux disease; Translations: [Gastro-esophageal reflux disease without esophagitis]12-36-3383JpnviumGylhmcdjr hypertension (7 sources)Hypertensive disorder; Translations: [Essential (primary) hypertension]32-70-8949OwirfiyQhgdqgzdjkqlk symptoms and ill-defined conditions (2 sources)Urge incontinence; Translations: [Urge incontinence of urine]Onset: 95-03-0242EqkgtiqZrtjjnlsvmvwi symptoms and ill-defined conditions (3 sources)Gljzapgn93-82-4198WmnonmfaNentqzdyhmh (7 sources)Hemorrhoids; Translations: [Unspecified hemorrhoids]06-07-2020 EpisodicHepatitis (8 sources)Steatohepatitis; Translations: [Nonalcoholic steatohepatitis (HURD)] Onset: 524028-43-5972NpcvnfhDyvoflfbltq of prostate (15 sources)Benign prostatic hypertrophy without outflow obstruction; Translations: [Benign prostatic hyperplasia without lower urinary tract symptoms]Onset: 84-60-7179NzrwpiiQurphnbdtrix with complications and secondary hypertension (1 source)Hypertensive heart disease with heart failure; Translations: [HTN HEART DISEASE W/HEART FAIL]Onset: 44-20-2137XdduzvdFbcgbbtvacr deficiencies (20 sources)Cobalamin deficiency; Translations: [Deficiency of other specified B group vitamins]EpisodicOther and unspecified benign neoplasm (3 sources)Hyperplastic polyp of large vohrxzvcc55-70-9413BwfidejlYirgc and unspecified benign neoplasm (17 sources)History of polyp of colon; Translations: [Personal history of colonic polyps]39-60-9081WqhqfodpJhvmo and unspecified benign neoplasm (4 sources)Polyp of colon; Translations: [Polyp of colon]EpisodicOther and unspecified benign neoplasm (4 sources)Benign neoplasm of colon; Translations: [Polyp of colon]EpisodicOther and unspecified benign neoplasm (4 sources)Gastric polyp; Translations: [Polyp of stomach and duodenum]Episodic Other connective tissue disease (3 sources)Bursitis of olecranon of left vpzul26-83-1474FrosxlvnVtman liver diseases (6 sources)Steatosis of liver; Translations: [Fatty (change of) liver, not elsewhere classified]59-94-0263MxbaemtYbruo liver diseases (7 sources)Fatty (change of) liver, not elsewhere classified; Translations: [Other chronic nonalcoholic liver disease]Onset: 08-16-2021 Resolved: 50-24-9145PayxttjUscnk liver diseases (2 sources)Unspecified cirrhosis of liver; Translations: [Cirrhotic]ChronicOther lower respiratory disease (3 sources)Dyspnea on naaxwjav28-00-1416KujrpxruWvzoo lower respiratory disease (1 source)Other forms of dyspnea; Translations: [OTHER FORMS OF DYSPNEA]Onset: 42-59-0942LboczossAlmue male genital disorders (3 sources)Disorder of -60-9687IdikyvsvLovxe screening for suspected conditions (not mental disorders or infectious disease) (12 sources)Raised prostate specific antigen; Translations: [Elevated prostate specific antigen [PSA]]Onset: 06-27-2021 Resolved: 73-13-4249LyxxcdhjZlcppqof enteritis and ulcerative colitis (20 sources)Crohn's disease; Translations: [Crohn's disease, unspecified, without complications]Onset: 06-27-2021 Resolved: 834610-78-0499UfuonwqUrajjezpyzq; intervertebral disc disorders; other back problems (3 sources)Low back jecf85-45-4174NionumyuGtmckjhskofv (2 sources)Liver fibrosis; Translations: [Liver fibrosis] Past or Other Problems Problem ClassificationProblemDateDocumented DateEpisodic/ChronicImmunizations and screening for infectious disease (4 sources)Encounter for immunization; Translations: [ENCOUNTER FOR IMMUNIZATION]Onset: 72-79-6831HyfncodcKemluyjdetqi (2 sources)Liver fibrosis K74.00Onset: 11-15-2021 Resolved: 02-14-2022 Results Test NameValueInterpretationReference RangeFacilitySURGICAL PATHOLOGY REFERENCE LAB CONSULTon 03-03-0468KSRN REPORTNormalCSt. Vincent Hospitalment on above:Order Comment: Specimen Type: FORMALIN-FIXED PARAFFIN-EMBEDDED TISSUE SPECIMEN Ordering Facility: [facility] Address: [address] [place] [address]Ijogqb Comment: Surgical Pathology Report Case: [id number] Authorizing Provider: Quang Lima MD Collected: 05/04/2024 02:10 PM Ordering Location: [facility] Received: 05/04/2024 02:09 PM [facility] Pathologist: Abraham Beyer MD Specimen: Slide(s), 2 SLIDES [id number] By: #### [id number] #### [facility] CLIA [id number] [address] [address] [place] OF AMERICACLINICAL HISTORYCONSULT REQUESTEDNoAshtabula County Medical Center on above:Order Comment: Specimen Type: FORMALIN-FIXED PARAFFIN-EMBEDDED TISSUE SPECIMEN Ordering Facility: [facility] Address: [address] [place], [place] [address]Dfxwjoocx By: #### [id number] #### [facility] CLIA [id number] [address] [place] [address] STATES OF AMERICADIAGNOSIS COMMENTNormal [facility] on above:Order Comment: Specimen Type: FORMALIN-FIXED PARAFFIN-EMBEDDED TISSUE SPECIMEN Ordering Facility: [facility] Address: [facility] [address] [place], [place] [address]Yhwfus Comment: Thank you for allowing us the opportunity to review this case in consultation, representing the liver biopsy of this 73-year-old man with a clinical history of Crohn's disease and fatty liver/HURD/MASH. The histologic sections demonstrate cores of hepatic parenchyma with preserved lobular architecture. At least fourteen portal tracts containing the usual structures have been identified. A portal tract shows a mild lymphocytic infiltrate without interface hepatitis. Ceroid pigment-laden macrophagesare noted in a few portal tracts suggestive of resolving hepatocellular injury. The interlobular bile ducts are intact. There is no evidence of bile duct epithelial injury or loss. Macrovesicular steatosis involves 20% of the parenchymal volume. No significant lobular inflammation is identified. Ballooning degeneration of hepatocytes and Luz's hyaline deposits are not present. No significant f ibrosis is noted on the provided H&E stained sections. A trichrome stain was not provided for review. The morphologic findings are within the spectrum of fatty liver disease. However, histologic features of steatohepatitis are not fully developed. Controlling risk factors for fatty liver progression,such as BMI, hyperglycemia, and alcohol intake, may be helpful. Thank you for sending this case in consultation. Please do not hesitate to contact us at [phone] with questions or if additional follow-up information becomes available. This case was reviewed in conjunction with the GI pathology fellow, Jazmin Lofton M.D.Performed By: #### [id number] #### [facility] CLIA [id number] [address] [place] [address] OF [facility] HOSPITALFINAL DIAGNOSISNormal [facility] HospitalComment on above:Order Comment: Specimen Type: FORMALIN-FIXED PARAFFIN-EMBEDDED TISSUE SPECIMEN Ordering Facility: [facility] Address: [address] [place], [place] [address]Dzocdl Comment: Liver, random, biopsy (A1 L1-2): - Hepatic parenchyma with macrovesicular steatosis involving 20% of the parenchymal volume without fibrosis on routine H&E staining. - Focal non-specific portal inflammation. AEB/NK 05/05/24 Performed By: #### [id number] #### [facility] CLIA [id number] [address] [place] [address] STATES OF AMERICAFINAL PERFORMING LABNormal [facility] HospitalComtr[facility] on above:Order Comment: Specimen Type: FORMALIN-FIXED PARAFFIN-EMBEDDED TISSUE SPECIMEN Ordering Facility: [facility] Address: [address] [place], [place] [address]Zywizl Comment: Diagnostic interpretation performed at: [facility], [address] [place] [address] CLIA# [id number] [employer]: Jerry Cantu MDPerformed By: #### [id number] #### [facility] CLIA [id number] [address] [place] [address] [place] OF PXNTMEPE8L with Estimated Average Gluon 02-42-9447Jsesoxn [Mass/Vol]166 mg/dLNormalThe [facility] Comment on above:Result Comment: PERFORMED BY: [facility] [address] [place] [id number] PATHOLOGIST NETWORKING ADMINISTRATOR LUPILLO THURSTON M.D.Performed By: #### HEMOCHROM, SMAB, BARAHAM, IGG, ELF, MITOM2, HCV RX PCR, HAAB, HBSAB, HCBIGM, HBCAB, HBSAG, L-K MICRO, ALPHA PHEN, HAABT, CERULOP ####[facility] ,#### CMP, A1C WTH eA, KELVIN, CRP, CBC, LIPID ####[address] [place] [address] UDCEuT6s (Bld) [Mass fraction]7.4 %High4.3-5.6The [facility] Physician GroupComment on above:Result Comment: Increased risk for diabetes: 5.7 - 6.4 diabetes: >6.4 glycemic control for adults with diabetes: <7.0Performed By: #### HEMOCHROM, SMAB, ABRAHAM, IGG, ELF, MITOM2, HCV RX PCR, HAAB, HBSAB, HCBIGM, HBCAB, HBSAG, L-K MICRO, ALPHA PHEN, HAABT, CERULOP ####[facility] ,#### CMP, A1C WTH eA, KELVIN, CRP, CBC, LIPID ####[facility] [place] [address] USAANA Antinuclear Antibodieson 07-10-3314Dwhstpboycj Abs, IFANegativeNormal.The [facility] Physician GroupComment on above:Result Comment: Negative <1:80 Borderline 1:80 Positive >1:80 ICAP nomenclature: AC-0 For more information about Hep-2 cell patterns use ANApatterns.org, the official website for the International Consensus on Antinuclear Antibody (ABRAHAM) Patterns (ICAP). Performed at: - [facility] [id number] Heel Sprayer: Mike Trinh PhD, Phone: [phone] By: #### HEMOCHROM, SMAB, ABRAHAM, IGG, ELF, MITOM2, HCV RX PCR, HAAB, HBSAB, HCBIGM, HBCAB, HBSAG, L-K MICRO, ALPHA PHEN, HAABT, CERULOP ####[facility] ,#### CMP, A1C WTH eA, KELVIN, CRP, CBC, LIPID ####[facility] [address] [place] [address] USAAlanine aminotransferase [Enzymatic activity/volume] in Serum or PlasmaOrdered By: Imad Asaad on 70-66-9257TXX [Catalytic activity/Vol]34 U/LNormal7-52[facility] HospitalComment on above: Performed By: #### HEMOCHROM, SMAB, ABRAHAM, IGG, ELF, MITOM2, HCV RX PCR, HAAB, HBSAB, HCBIGM, HBCAB, HBSAG, L-K MICRO, ALPHA PHEN, HAABT, CERULOP #### [facility] , #### CMP, A1C WTH eA, KELVIN, CRP, CBC, LIPID #### [facility] [address] [place] [address] USAAlbumin [Mass/volume] in Serum or Plasma by Bromocresol green (BCG) dye binding methoOrdered By: Imad Asaad on 74-96-5854Edzuwal BCG dye [Mass/Vol]4.7 g/dL3.5-5.7FSt. Francis HospitalAlkaline phosphatase [Enzymatic activity/volume] in Serum or PlasmaOrdered By: Imad Asaad on 33-34-6793OYS [Catalytic activity/Vol]73 U/JHuqayk54-988UgtnwoizdDelaware County HospitalComment on above:Performed By: #### HEMOCHROM, SMAB, ABRAHAM, IGG, ELF, MITOM2, HCV RX PCR, HAAB, HBSAB, HCBIGM, HBCAB, HBSAG, L-K MICRO, ALPHA PHEN, HAABT, CERULOP #### [facility] , #### CMP, A1C WTH eA, KELVIN, CRP, CBC, LIPID #### [facility] [address] [place] [address] JXPCfozr-3-Anoezjwsexa Phenotypeon 23-58-6745Xvkcv 1 Anti-Lliawez625 mg/tXRkqktt814-259Gls [facility] Physician GroupComment on above: Performed By: #### HEMOCHROM, SMAB, ABRAHAM, IGG, ELF, MITOM2, HCV RX PCR, HAAB, HBSAB, HCBIGM, HBCAB, HBSAG, L-K MICRO, ALPHA PHEN, HAABT, CERULOP ####[facility] ,#### CMP, A1C WTH eA, KELVIN, CRP, CBC, LIPID ####[facility] [address] [place] [address] USAPhenotype (P1)MMNormal.The [facility] Physician GroupComment on above:Result Comment: MM Phenotype is considered to be normal , producing normal serum levels of yesjj-6-urtdpefd inhibitor and not associated with clinical disease. Associated A1A total serum levels in other phenotypes and their incidence in the general population are shown in the table below. Phenotype Population % function A-1-AT Conc.* Incidence % compared to MM (Typical Range) MM 86.5% 100% (96 - 189) MS 8.0% 86% (83 - 161) MZ 3.9% 61% (60 - 111) FM 0.4% 100% (93 - 191) SZ 0.3% 41% (42 - 75) SS 0.1% 64% (62 - 119) ZZ 0.05% 19% (16 - 38) FS 0.05% 70% (70 - 128) FZ Unknown 46% (44 - 88) FF Unknown Unknown *A-1-AT concentration in the homozygous MM phenotype is taken as the reference normal. Percent deficiency in each phenotype is reported relative to this reference. Ranges used to confirm phenotype. Performed at: [address] [id number] Heel Sprayer: Mike Trinh PhD, Phone: [phone] Performed at: [address] [id number] Heel Sprayer: Mary Torres MD, Phone: [phone] By: #### HEMOCHROM, SMAB, ABRAHAM, IGG, ELF, MITOM2, HCV RX PCR, HAAB, HBSAB, HCBIGM, HBCAB, HBSAG, L-K MICRO, ALPHA PHEN, HAABT, CERULOP ####[facility] ,#### CMP, A1C WTH eA, KELVIN, CRP, CBC, LIPID ####[facility] [address] [place] [address] USAAspartate aminotransferase [Enzymatic activity/volume] in Serum or PlasmaOrdered By: Imad Asaad on 33-80-7050GWO [Catalytic activity/Vol]22 U/KGmndcf71-85GjctphgwcDelaware County Hospital Comment on above:Performed By: #### HEMOCHROM, SMAB, ABRAHAM, IGG, ELF, MITOM2, HCV RX PCR, HAAB, HBSAB, HCBIGM, HBCAB, HBSAG, L-K MICRO, ALPHA PHEN, HAABT, CERULOP #### [facility] , #### CMP, A1C WTH eA, KELVIN, CRP, CBC, LIPID #### [facility] [address] [place] [address] USAAutomated basophil %Ordered By: Imad Asaad on 04-15-2024 Basophils/100 WBC (Bld)1.0 %Normal.[facility] HospitalComment on above:Performed By: #### HEMOCHROM, SMAB, ABRAHAM, IGG, ELF, MITOM2, HCV RX PCR, HAAB, HBSAB, HCBIGM, HBCAB, HBSAG, L-K MICRO, ALPHA PHEN, HAABT, CERULOP #### [facility] , #### CMP, A1C WTH eA, KELVIN, CRP, CBC, LIPID #### [facility] [address] [place] [address] USAAutomated basophil countOrdered By: Imad Asaad on 93-95-5026Fxzengrty (Bld) [#/Vol]0.1 10*3/uLNormal0.0-0.2FSt. Francis HospitalComment on above:Result Comment: PERFORMED BY: [place] [address] PATHOLOGIST NETWORKING ADMINISTRATOR LUPILLO THURSTON M.D.Performed By: #### HEMOCHROM, SMAB, ABRAHAM, IGG, ELF, MITOM2, HCV RX PCR, HAAB, HBSAB, HCBIGM, HBCAB, HBSAG, L-K MICRO, ALPHA PHEN, HAABT, CERULOP #### [facility] , #### CMP, A1C WTH eA, KELVIN, CRP, CBC, LIPID #### [place] [address] USAAutomated blood monocyte countOrdered By: Imad Asaad on 32-23-4422Cshlmhatm (Bld) [#/Vol]0.6 10*3/uLNormal0.0-0.8Del[facility] County HospitalComment on above:Performed By: #### HEMOCHROM, SMAB, ABRAHAM, IGG, ELF, MITOM2, HCV RX PCR, HAAB, HBSAB, HCBIGM, HBCAB, HBSAG, L-K MICRO, ALPHA PHEN, HAABT, CERULOP #### [facility] , #### CMP, A1C WTH eA, KELVIN, CRP, CBC, LIPID #### [place] [address] USAAutomated eosinophil %Ordered By: Imad Asaad on 04-15-2024 Eosinophils/100 WBC (Bld)4.2 %Normal.Del[facility] County HospitalComment on above:Performed By: #### HEMOCHROM, SMAB, ABRAHAM, IGG, ELF, MITOM2, HCV RX PCR, HAAB, HBSAB, HCBIGM, HBCAB, HBSAG, L-K MICRO, ALPHA PHEN, HAABT, CERULOP #### [facility] , #### CMP, A1C WTH eA, KELVIN, CRP, CBC, LIPID #### [facility] [address] [place] [address] USAAutomated eosinophil countOrdered By: Imad Asaad on 37-54-4540Rmqyyxmtdqt (Bld) [#/Vol]0.3 10*3/uLNormal0.0-0.45Del[facility] County HospitalComment on above:Performed By: #### HEMOCHROM, SMAB, ABRAHAM, IGG, ELF, MITOM2, HCV RX PCR, HAAB, HBSAB, HCBIGM, HBCAB, HBSAG, L-K MICRO, ALPHA PHEN, HAABT, CERULOP #### [facility] , #### CMP, A1C WTH eA, KELVIN, CRP, CBC, LIPID #### [facility] [address] [place] [address] USAAutomated monocyte %Ordered By: Imad Asaad on 04-15-2024 Monocytes/100 WBC (Bld)9.0 %Normal.[facility] County HospitalComment on above:Performed By: #### HEMOCHROM, SMAB, ABRAHAM, IGG, ELF, MITOM2, HCV RX PCR, HAAB, HBSAB, HCBIGM, HBCAB, HBSAG, L-K MICRO, ALPHA PHEN, HAABT, CERULOP #### [facility] , #### CMP, A1C WTH eA, KELVIN, CRP, CBC, LIPID #### [facility] [address] [place] [address] USAAutomated neutrophil %Ordered By: Imad Asaad on 04-15-2024 Neutrophils/100 WBC (Bld)70.4 %Normal.[facility] County HospitalComment on above:Performed By: #### HEMOCHROM, SMAB, ABRAHAM, IGG, ELF, MITOM2, HCV RX PCR, HAAB, HBSAB, HCBIGM, HBCAB, HBSAG, L-K MICRO, ALPHA PHEN, HAABT, CERULOP #### [facility] , #### CMP, A1C WTH eA, KELVIN, CRP, CBC, LIPID #### [facility] [address] [place] [address] USABilirubin.total [Mass/volume] in Serum or PlasmaOrdered By: Imad Asaad on 93-58-7257Kxdltelpz [Mass/Vol]0.7 mg/dLNormal0.3-1.0Del[facility] County HospitalComment on above:Performed By: #### HEMOCHROM, SMAB, ABRAHAM, IGG, ELF, MITOM2, HCV RX PCR, HAAB, HBSAB, HCBIGM, HBCAB, HBSAG, L-K MICRO, ALPHA PHEN, HAABT, CERULOP #### [facility] , #### CMP, A1C WTH eA, KELVIN, CRP, CBC, LIPID #### [facility] [address] [id number] USAC reactive protein [Mass/volume] in Serum or PlasmaOrdered By: Imad Asaad on 64-83-0092LEL [Mass/Vol]< 0.5 mg/dL0.0-0.5FSt. Francis HospitalC-Reactive Proteinon 01-04-5342OAO [Mass/Vol]mg/LNormal0.0-0.5The [facility] Health Physician GroupComment on above:Performed By: #### HEMOCHROM, SMAB, ABRAHAM, IGG, ELF, MITOM2, HCV RX PCR, HAAB, HBSAB, HCBIGM, HBCAB, HBSAG, L-K MICRO, ALPHA PHEN, HAABT, CERULOP ####[facility] ,#### CMP, A1C WTH eA, KELVIN, CRP, CBC, LIPID ####[facility] [address] [place] [address] USACalcium [Mass/volume] in Serum or PlasmaOrdered By: Imad Asaad on 21-16-3121Snsjhpd [Mass/Vol]10.1 mg/dLNormal8.6-10.3FSt. Francis HospitalComment on above:Performed By: #### HEMOCHROM, SMAB, ABRAHAM, IGG, ELF, MITOM2, HCV RX PCR, HAAB, HBSAB, HCBIGM, HBCAB, HBSAG, L-K MICRO, ALPHA PHEN, HAABT, CERULOP #### [facility] , #### CMP, A1C WTH eA, KELVIN, CRP, CBC, LIPID #### [facility] [address] [id number] USACarbon dioxide, total [Moles/volume] in Serum or Plasma Ordered By: Imad Asaad on 14-41-9442ND7 [Moles/Vol]27.3 mmol/AImyjnf29.0-31.0 [facility] County HospitalComment on above:Performed By: #### HEMOCHROM, SMAB, ABRAHAM, IGG, ELF, MITOM2, HCV RX PCR, HAAB, HBSAB, HCBIGM, HBCAB, HBSAG, L-K MICRO, ALPHA PHEN, HAABT, CERULOP #### [facility] , #### CMP, A1C WTH eA, KELVIN, CRP, CBC, LIPID #### [place] [address] USACeruloplasminon 47-36-5746Vdeykmiiexhzl46.1 mg/dLNormal 16.0-31.0The Nov[facility] Health Physician GroupComment on above:Result Comment: Performed at: - [facility] [id number] Heel Sprayer: Mike Trinh PhD, Phone: [phone] PERFORMED BY: [place] [address] PATHOLOGIST NETWORKING ADMINISTRATOR LUPILLO THURSTON M.D.Performed By: #### HEMOCHROM, SMAB, ABRAHAM, IGG, ELF, MITOM2, HCV RX PCR, HAAB, HBSAB, HCBIGM, HBCAB, HBSAG, L-K MICRO, ALPHA PHEN, HAABT, CERULOP ####[facility] ,#### CMP, A1C WTH eA, KELVIN, CRP, CBC, LIPID ####[place] [address] [place] Chloride [Moles/volume] in Serum or PlasmaOrdered By: Quang Lima on 04-15-2024 Chloride [Moles/Vol]103 mmol/MEfbnuh88-348GsjybgnuhDelaware County Hospital Comment on above:Performed By: #### HEMOCHROM, SMAB, ABRAHAM, IGG, ELF, MITOM2, HCV RX PCR, HAAB, HBSAB, HCBIGM, HBCAB, HBSAG, L-K MICRO, ALPHA PHEN, HAABT, CERULOP #### [facility] , #### CMP, A1C WTH eA, KELVIN, CRP, CBC, LIPID #### [facility] [address] [place] [address] USACholesterol [Mass/volume] in Serum or PlasmaOrdered By: Quang Lima on 03-36-5396Ktdoyuuhjdf [Mass/Vol]200 mg/nFEubkho428-802VtfjqggzvDelaware County HospitalComment on above:Chol less than 200 mg/dl low riskChol 201-239 mg/dl borderline riskChol 240 mg/dl and greater high riskResult Comment: Chol less than 200 mg/dl low risk Chol 201-239 mg/dl borderline risk Chol 240 mg/dl and greater high riskPerformed By: #### HEMOCHROM, SMAB, ABRAHAM, IGG, ELF, MITOM2, HCV RX PCR, HAAB, HBSAB, HCBIGM, HBCAB, HBSAG, L-K MICRO, ALPHA PHEN, HAABT, CERULOP ####[facility] ,#### CMP, A1C WTH eA, KELVIN, CRP, CBC, LIPID ####[facility] [address] [place] [address] USACholesterol in LDL Calc [Mass/Vol]Ordered By: Quang Lima on 04-15-2024 Cholesterol in LDL [Mass/Vol]108 mg/dLHigh0-100[facility] Comment on above:LDL ATP III CLASSIFICATIONLDL less than 100 mg/dL OptimalLDL 100-129 mg/dL Near or above texjjftQBO228-558 mg/dL Borderline highLDL 160-189 mg/dL HighLDL greater than 189 mg/dL Very highCholesterol in VLDL Calc [Mass/Vol]Ordered By: Quang Lima on 75-47-4721Jmuiadlqzms in VLDL [Mass/Vol]48 mg/dLDelaware County HospitalComplete Blood Count Auto Diffon 83-02-1297Nfcg Corpuscular HGB Conc33.3 g/gUSoemtz14.5-35.6The [facility] Physician GroupComment on above:Performed By: #### HEMOCHROM, SMAB, ABRAHAM, IGG, ELF, MITOM2, HCV RX PCR, HAAB, HBSAB, HCBIGM, HBCAB, HBSAG, L-K MICRO, ALPHA PHEN, HAABT, CERULOP #### [facility] , #### CMP, A1C WTH eA, KELVIN, CRP, CBC, LIPID #### [facility] [address] [place] [address] USANRBC%0.1 /100{WBC}Normal0-0.5The [facility] Comment on above:Performed By: #### HEMOCHROM, SMAB, ABRAHAM, IGG, ELF, MITOM2, HCV RX PCR, HAAB, HBSAB, HCBIGM, HBCAB, HBSAG, L-K MICRO, ALPHA PHEN, HAABT, CERULOP #### [facility] , #### CMP, A1C WTH eA, KELVIN, CRP, CBC, LIPID #### [facility] [address] [place] [address] USAComprehensive Metabolic Panelon 25-91-1064Vpepogo [Mass/Vol]4.7 g/dLNormal3.5-5.7The [facility] Health Physician GroupComment on above: Performed By: #### HEMOCHROM, SMAB, ABRAHAM, IGG, ELF, MITOM2, HCV RX PCR, HAAB, HBSAB, HCBIGM, HBCAB, HBSAG, L-K MICRO, ALPHA PHEN, HAABT, CERULOP #### [facility] , #### CMP, A1C WTH eA, KELVIN, CRP, CBC, LIPID #### [facility] [address] [place] [address] USAGFR/1.73 sq M.predicted MDRD (S/P/Bld) [Vol rate/Area] mL/min/{1.73_m2}NormalThe Novant Health Physician GroupComment on above:Performed By: #### HEMOCHROM, SMAB, ABRAHAM, IGG, ELF, MITOM2, HCV RX PCR, HAAB, HBSAB, HCBIGM, HBCAB, HBSAG, L-K MICRO, ALPHA PHEN, HAABT, CERULOP #### [facility] , #### CMP, A1C WTH eA, KELVIN, CRP, CBC, LIPID #### [place] [address] USACreatinine [Mass/volume] in Serum or PlasmaOrdered By: Quang Ledezmaad on 85-08-9060Cieodgxyxq [Mass/Vol]1.08 mg/dLNormal0.70-1.30Del[facility] County HospitalComment on above:Performed By: #### HEMOCHROM, SMAB, ABRAHAM, IGG, ELF, MITOM2, HCV RX PCR, HAAB, HBSAB, HCBIGM, HBCAB, HBSAG, L-K MICRO, ALPHA PHEN, HAABT, CERULOP #### [facility] , #### CMP, A1C WTH eA, KELVIN, CRP, CBC, LIPID #### [facility] [address] [place] [address] USAEnhanced Liver Fibrosis Teston 09-44-7600Dmgleihb Liver Fibrosis Score10.45High<9.80The [facility] Health Physician GroupComment on above:Result Comment: ELF(TM) Score Interpretation: Risk cut-offs to assess the likelihood of progression to cirrhosis and liver-related clinical events within 3.9 years following baseline ELF score (IQR: 14.0-22.4 months)*: Lower risk < 9.80 Mid risk 9.80 - 11.29 Higher risk >11.29 Note: The ELF(TM) Score is a unitless numerical value. *Quincy SA, Austin LOPEZ, Janice T, et al. Selonsertib for patients with bridging fibrosis or compensated cirrhosis due to HURD: Results from randomized phase III STELLAR trials. J Hepatol. 2020 Jan;73(1):26-39. Performed at: [address] [id number] Heel Sprayer: Mary Torres MD, Phone: [phone] PERFORMED BY: [facility] [address] [place] [address] PATHOLOGIST NETWORKING ADMINISTRATOR LUPILLO THURSTON M.D.Performed By: #### HEMOCHROM, SMAB, ABRAHAM, IGG, ELF, MITOM2, HCV RX PCR, HAAB, HBSAB, HCBIGM, HBCAB, HBSAG, L-K MICRO, ALPHA PHEN, HAABT, CERULOP ####[facility] ,#### CMP, A1C WTH eA, KELVIN, CRP, CBC, LIPID ####[facility] [address] [id number] [place] Erythrocyte distribution width [Ratio] by Automated countOrdered By: Imad Asaad on 34-39-8902Xeerznrjnpv distribution width (RBC) [Ratio]13.2 %Labeue92.0-14.8 [facility] HospitalComment on above:Performed By: #### HEMOCHROM, SMAB, ABRAHAM, IGG, ELF, MITOM2, HCV RX PCR, HAAB, HBSAB, HCBIGM, HBCAB, HBSAG, L-K MICRO, ALPHA PHEN, HAABT, CERULOP #### [facility] , #### CMP, A1C WTH eA, KELVIN, CRP, CBC, LIPID #### [facility] [address] [id number] USAErythrocytes [#/volume] in Blood by Automated countOrdered By: Imad Asaad on 42-14-7402XCB (Bld) [#/Vol]4.83 10*6/uLNormal3.90-5.60 [facility] HospitalComment on above:Performed By: #### HEMOCHROM, SMAB, ABRAHAM, IGG, ELF, MITOM2, HCV RX PCR, HAAB, HBSAB, HCBIGM, HBCAB, HBSAG, L-K MICRO, ALPHA PHEN, HAABT, CERULOP #### [facility] , #### CMP, A1C WTH eA, KELVIN, CRP, CBC, LIPID #### [facility] [address] [id number] USAFerritin [Mass/volume] in Serum or PlasmaOrdered By: Imad Asaad on 54-60-4922Pjhfcpue [Mass/Vol]99.9 ng/nUBwnimi00.9-336.2FSt. Francis HospitalComment on above:Performed By: #### HEMOCHROM, SMAB, ABRAHAM, IGG, ELF, MITOM2, HCV RX PCR, HAAB, HBSAB, HCBIGM, HBCAB, HBSAG, L-K MICRO, ALPHA PHEN, HAABT, CERULOP #### [facility] , #### CMP, A1C WTH eA, KELVIN, CRP, CBC, LIPID #### [facility] [address] [place] [address] USAGlucose [Mass/volume] in Serum or PlasmaOrdered By: Quang Lima on 99-82-4671Bunzshc [Mass/Vol]153 mg/eVIptd84-498QqcjjlgphDelaware County HospitalComment on above:ADA recommended reference rangeRandom Glucose Reference Range is dependent on time and content of last meal. Glucose of more than 200 mg/dL in a nonstressed, ambulatory subject supports the diagnosisof Diabetes Mellitus.Result Comment: Random Glucose Reference Range is dependent on time and content of last meal. Glucose of more than 200 mg/dL in a nonstressed, ambulatory subject supports the diagnosis of Diabetes Mellitus. ADA recommended reference rangePerformed By: #### HEMOCHROM, SMAB, ABRAHAM, IGG, ELF, MITOM2, HCV RX PCR, HAAB, HBSAB, HCBIGM, HBCAB, HBSAG, L-K MICRO, ALPHA PHEN, HAABT, CERULOP #### [facility] , #### CMP, A1C WTH eA, KELVIN, CRP, CBC, LIPID #### [facility] [address] [place] [address] USAHematocrit [Volume Fraction] of Blood by Automated count Ordered By: Quang Lima on 04-29-7360Htydkkwnna (Bld) [Volume fraction]44.5 % Eyjhib22.8-50.0Del[facility] County HospitalComment on above:Performed By: #### HEMOCHROM, SMAB, ABRAHAM, IGG, ELF, MITOM2, HCV RX PCR, HAAB, HBSAB, HCBIGM, HBCAB, HBSAG, L-K MICRO, ALPHA PHEN, HAABT, CERULOP #### [facility] , #### CMP, A1C WTH eA, KELVIN, CRP, CBC, LIPID #### [facility] [address] [place] [address] USAHemoglobin [Mass/volume] in BloodOrdered By: Quang Lima on 19-83-7817Bquzwyjxqs (Bld) [Mass/Vol]14.8 g/rOItkeqj45.0-17.0Del[facility] County HospitalComment on above:Performed By: #### HEMOCHROM, SMAB, ABRAHAM, IGG, ELF, MITOM2, HCV RX PCR, HAAB, HBSAB, HCBIGM, HBCAB, HBSAG, L-K MICRO, ALPHA PHEN, HAABT, CERULOP #### [facility] , #### CMP, A1C WTH eA, KELVIN, CRP, CBC, LIPID #### [facility] [address] [place] [address] USAHep C Ab wRfx to Qnt PCRon 78-38-3649Lwjljowex C Virus AntibodyNon-ReactiveNormalNon ReactiveThe Nov[facility] Health Physician GroupComment on above:Performed By: #### HEMOCHROM, SMAB, ABRAHAM, IGG, ELF, MITOM2, HCV RX PCR, HAAB, HBSAB, HCBIGM, HBCAB, HBSAG, L-K MICRO, ALPHA PHEN, HAABT, CERULOP ####[facility] ,#### CMP, A1C WTH eA, KELVIN, CRP, CBC, LIPID ####[facility] [id number] Interpretation Hepatitis CCommentNormal.The [facility] Health Physician GroupComment on above:Result Comment: Not infected with HCV unless early or acute infection is suspected (which may be delayed in an immunocompromised individual), or other evidence exists to indicate HCV infection.Performed By: #### HEMOCHROM, SMAB, ABRAHAM, IGG, ELF, MITOM2, HCV RX PCR, HAAB, HBSAB, HCBIGM, HBCAB, HBSAG, L-K MICRO, ALPHA PHEN, HAABT, CERULOP ####[facility] ,#### CMP, A1C WTH eA, KELVIN, CRP, CBC, LIPID ####[facility] [id number] Hepatitis A Antibody IgMon 26-29-9924Uzhbnlchq A Antibody IgMNegativeNormal NegativeThe [facility] Health Physician GroupComment on above:Result Comment: A negative anti-HAV IgM result suggests no recent or current HAV infection.Performed By: #### HEMOCHROM, SMAB, ABRAHAM, IGG, ELF, MITOM2, HCV RX PCR, HAAB, HBSAB, HCBIGM, HBCAB, HBSAG, L-K MICRO, ALPHA PHEN, HAABT, CERULOP ####[facility] ,#### CMP, A1C WTH eA, KELVIN, CRP, CBC, LIPID ####[address] [place] [id number] [facility] Hepatitis A Antibody Totalon 91-37-2337Orztofzhe A Antibody TotalNegativeNormal NegativeThe [facility] Health Physician GroupComment on above:Result Comment: Comment: The HAV total antibody assay detects both IgG and IgM but does not differentiate between them. A negative result suggests susceptibility to infection. A positive result could be due to vaccination, previously resolved infection or active infection. Testing for HAV IgM should be performed if active HAV infection is suspected. [facility] offers profiles that will automatically reflex positive HAV total antibody results to IgM (e.g., panel #[id number] HAV Antibody w/ Rfx).Performed By: #### HEMOCHROM, SMAB, ABRAHAM, IGG, ELF, MITOM2, HCV RX PCR, HAAB, HBSAB, HCBIGM, HBCAB, HBSAG, L-K MICRO, ALPHA PHEN, HAABT, CERULOP ####[facility] ,#### CMP, A1C WTH eA, KELVIN, CRP, CBC, LIPID ####[place] [id number] [facility] Hepatitis B Core Antibodyon 34-01-4452Wjawpltrd B Core AntibodyNegativeNormal NegativeThe [facility] Health Physician GroupComment on above:Performed By: #### HEMOCHROM, SMAB, ABRAHAM, IGG, ELF, MITOM2, HCV RX PCR, HAAB, HBSAB, HCBIGM, HBCAB, HBSAG, L-K MICRO, ALPHA PHEN, HAABT, CERULOP ####[facility] ,#### CMP, A1C WTH eA, KELVIN, CRP, CBC, LIPID ####[place] [id number] USAHepatitis B Core Antibody IgMon 43-70-8609Wpeazhwim B Core Antibody IgMNegativeNormalNegativeThe [facility] Physician GroupComment on above:Result Comment: Performed at: [facility] [id number] Heel Sprayer: Mike Trinh PhD, Phone: [phone] By: #### HEMOCHROM, SMAB, ABRAHAM, IGG, ELF, MITOM2, HCV RX PCR, HAAB, HBSAB, HCBIGM, HBCAB, HBSAG, L-K MICRO, ALPHA PHEN, HAABT, CERULOP ####[facility] ,#### CMP, A1C WTH eA, KELVIN, CRP, CBC, LIPID ####[address] [place] [address] USAHepatitis B Surface Antibodyon 56-45-8616Ebvhsasrw B Surface AntibodyNon-ReactiveNormal.The [facility] Physician GroupComment on above:Result Comment: Non Reactive: Not immune to HBV infection. Equivocal: Unable to determine if anti-HBs is present at levels consistent with immunity. Reactive: Anti-HBs concentration detected at greater than 10 mIU/mL. Individual is considered to be immune to infection with HBV.Performed By: #### HEMOCHROM, SMAB, ABRAHAM, IGG, ELF, MITOM2, HCV RX PCR, HAAB, HBSAB, HCBIGM, HBCAB, HBSAG, L-K MICRO, ALPHA PHEN, HAABT, CERULOP ####[facility] ,#### CMP, A1C WTH eA, KELVIN, CRP, CBC, LIPID ####[place] [address] [place] Hepatitis B Surface Antigenon 86-94-5693ZGxHq ScreenNegativeNormalNegativeThe [facility] Physician Laird HospitalComment on above:Result Comment: PERFORMED BY: [facility] [address] [id number] PATHOLOGIST NETWORKING ADMINISTRATOR LUPILLO THURSTON M.D.Performed By: #### HEMOCHROM, SMAB, ABRAHAM, IGG, ELF, MITOM2, HCV RX PCR, HAAB, HBSAB, HCBIGM, HBCAB, HBSAG, L-K MICRO, ALPHA PHEN, HAABT, CERULOP ####[facility] ,#### CMP, A1C WTH eA, KELVIN, CRP, CBC, LIPID ####[facility] [id number] [place] [address] [facility] Hereditary Hemochromatosis,DNAon 38-60-3703Smwomcbnns HemochromatosisComment Normal.The [facility] Physician GroupComment on above:Result Comment: Result: c.845G>A (p.Pwk998Qkz) - Not Detected c.187C>G (p.Otv34Vra) - Not Detected c.193A>T (p.Vor07Hcj) - Not Detected Not associated with increased risk to develop clinical symptoms of Hereditary Hemochromatosis. In symptomatic individuals, other causes of iron overload should be evaluated. See Additional Information and Comments. Additional Clinical Information: Hereditary hemochromatosis (HFE related) is an autosomal recessive iron storage disorder. Patients may have a genetic diagnosis of hereditary hemochromatosis and never show clinical symptoms. Clinical symptoms typically appear between 40 to 60 years in males and after menopause in females. Signs and symptoms may include organ damage, primarily in the liver, risk for hepatocellular carcinoma, diabetes, and heart disease due to iron accumulation. Life expectancy may be decreased in individuals who develop cirrhosis. Treatment for clinically symptomatic individuals may include therapeutic phlebotomy. Liver transplant may be used to treat end stage liver failure. For preventive care, monitoring for iron overload is recommended for patients who are homozygous for c.845G>A (p.Lzc650Sxc) and have yet to experience clinical symptoms. Comments: The most common HFE variants associated with hereditary hemochromatosis are c.845G>A (p.Qrq406Pav), c.187C>G (p.Qpy70Ttr), c.193A>T (p.Ycv10Nbm). While patients homozygous for c.845G>A (p.Rjd648Osr) are the most likely to present clinical symptoms, less than 10% develop clinically significant iron overload with tissue and organ damage. Genetic counseling is recommended to discuss the potential clinical implications of positive results, as well as recommendations for testing family members. Genetic Coordinators are available for health care providers to discuss results at [phone] Test Details: Three variants analyzed: c.845G>A (p.Dmp607Vhj), commonly referred to as C282Y c.187C>G (p.Obp56Blw), commonly referred to as H63D c.193A>T (p.Pem35Ydf), commonly referred to as S65C Methods/Limitations: DNA Analysis of the HFE gene (NM_000410.4) was performed by PCR amplification followed by restriction enzyme digestion analyses. Results must be combined with clinical information for the most accurate interpretation. Molecular- based testing is highly accurate, but as in any laboratory test, diagnostic errors may occur. False positive or false negative results may occur for reasons that include genetic variants, blood transfusions, bone marrow transplantation, somatic or tissue-specific mosaicism, mislabeled samples, or erroneous representation of family relationships. This test was developed and its performance characteristics determined by [facility]. It has not been cleared or approved by the Food and Drug Administration. References: Velasquez BR, Cj PC, August KV, Charlie LW, Stacia ; [employer]. Diagnosis and management of hemochromatosis: 2011 practice guideline by the [place] [employer] Liver Diseases. Hepatology. 2011 Jan;54(1):328-43. doi: 10.1002/hep.47097. PMID: 69725968; PMCID: VMY3911837. Zena G, Isaiah P, So DW, Dorita H, Sendy O, Yogesh S, Noel I, Bora M, Carmen S. [employer] [facility] best practice guidelines for the molecular genetic diagnosis of hereditary hemochromatosis (HH). Eur J Hum Caron. 2016 Oct;24(4):479-95. doi: 10.1038/ejhg.2015.128. Epub 2014Jan 26. PMID: 58497451; PMCID: IAT6800619.Performed By: #### HEMOCHROM, SMAB, ABRAHAM, IGG, ELF, MITOM2, HCV RX PCR, HAAB, HBSAB, HCBIGM, HBCAB, HBSAG, L-K MICRO, ALPHA PHEN, HAABT, CERULOP ####[facility] ,#### CMP, A1C WTH eA, KELVIN, CRP, CBC, LIPID ####[facility] [place] [id number] USAReviewed by:CommentNormal.The [facility] Physician Laird HospitalComment on above:Result Comment: Chris Pro, PhD Director, Molecular Genetics Performed at: [facility] [address] [facility], [place], [place] [id number] Heel Sprayer: Calixto Rodriguez [facility], Phone: [phone] By: #### HEMOCHROM, SMAB, ABRAHAM, IGG, ELF, MITOM2, HCV RX PCR, HAAB, HBSAB, HCBIGM, HBCAB, HBSAG, L-K MICRO, ALPHA PHEN, HAABT, CERULOP ####[facility] ,#### CMP, A1C WTH eA, KELVIN, CRP, CBC, LIPID ####[facility] [place] [address] USAImmunoglobulin Luis E 12-76-0795Wowbjawzihvday G746 mg/yIMhycin270-1097Uyw [facility] Laird HospitalComment on above:Result Comment: Performed at: [address] [id number] Heel Sprayer: Mike Trinh PhD, Phone: [phone] By: #### HEMOCHROM, SMAB, ABRAHAM, IGG, ELF, MITOM2, HCV RX PCR, HAAB, HBSAB, HCBIGM, HBCAB, HBSAG, L-K MICRO, ALPHA PHEN, HAABT, CERULOP ####[facility] ,#### CMP, A1C WTH eA, KELVIN, CRP, CBC, LIPID ####[facility] [place] [address] USALeukocytes [#/volume] corrected for nucleated erythrocytes in Blood by Automated counOrdered By: Imad Asaad on 73-10-4950TGW corrected for nucl RBC Auto (Bld) [#/Vol]7.0 10*3/uL4.1-10.5FSt. Francis HospitalLeukocytes [#/volume] in Blood by Automated countOrdered By: Imad Asaad on [id number] (Bld) [#/Vol]7.0 10*3/uLNormal4.1-10.5FSt. Francis HospitalComment on above:Performed By: #### HEMOCHROM, SMAB, ABRAHAM, IGG, ELF, MITOM2, HCV RX PCR, HAAB, HBSAB, HCBIGM, HBCAB, HBSAG, L-K MICRO, ALPHA PHEN, HAABT, CERULOP #### [facility] , #### CMP, A1C WTH eA, KELVIN, CRP, CBC, LIPID #### [facility] [address] [place] [address] USALipid Panelon [id number] Cholesterol,Faigrvfeqo774 mg/dLHigh0-100The [facility] Physician GroupComment on above:Result Comment: LDL ATP III CLASSIFICATION LDL less than 100 mg/dL Optimal LDL 100-129 mg/dL Near or above optimal LDL 130-159 mg/dL Borderline high LDL 160-189 mg/dL High LDL greater than 189 mg/dL Very highPerformed By: #### HEMOCHROM, SMAB, ABRAHAM, IGG, ELF, MITOM2, HCV RX PCR, HAAB, HBSAB, HCBIGM, HBCAB, HBSAG, L-K MICRO, ALPHA PHEN, HAABT, CERULOP ####[facility] ,#### CMP, A1C WTH eA, KELVIN, CRP, CBC, LIPID ####[facility] [id number] [place] [address] USATriglyceride w/Yoacjt584 mg/dLHigh0-149[facility] Comment on above:Result Comment: TRIG ATP III CLASSIFICATION TRIG less than 150 mg/dL Normal TRIG 150-199 mg/dL Borderline high TRIG 200-500 mg/dL High TRIG greater than 500 mg/dL Very high Standard traceable to the Center for Disease Conrtrol and Prevention (CDC) test method.Performed By: #### HEMOCHROM, SMAB, ABRAHAM, IGG, ELF, MITOM2, HCV RX PCR, HAAB, HBSAB, HCBIGM, HBCAB, HBSAG, L-K MICRO, ALPHA PHEN, HAABT, CERULOP ####[facility] ,#### CMP, A1C WTH eA, KELVIN, CRP, CBC, LIPID ####[facility] [place] [id number] [place] VLDL GTEISESCYST46 mg/dLNoAsheville Specialty Hospital Physician GroupComment on above: Performed By: #### HEMOCHROM, SMAB, ABRAHAM, IGG, ELF, MITOM2, HCV RX PCR, HAAB, HBSAB, HCBIGM, HBCAB, HBSAG, L-K MICRO, ALPHA PHEN, HAABT, CERULOP ####[facility] ,#### CMP, A1C WTH eA, KELVIN, CRP, CBC, LIPID ####[facility] [place] [id number] USALiver-Kidney Microsomal Abon 66-84-0714Gqlwr-Kidney Microsomal Ab2.5Oosfdr7.0-20.0[facility] Physician Laird HospitalComment on above:Result Comment: Negative 0.0 - 20.0 Equivocal 20.1 - 24.9 Positive >24.9 LKM type 1 antibodies are detected in patients with autoimmune hepatitis type 2 and in up to 8% of patients with chronic HCV infection. Performed at: - [facility] [id number] Heel Sprayer: Mike Trinh PhD, Phone: [phone] By: #### HEMOCHROM, SMAB, ABRAHAM, IGG, ELF, MITOM2, HCV RX PCR, HAAB, HBSAB, HCBIGM, HBCAB, HBSAG, L-K MICRO, ALPHA PHEN, HAABT, CERULOP ####[facility] ,#### CMP, A1C WTH eA, KELVIN, CRP, CBC, LIPID ####[facility] [place] [id number] USALymphocytes [#/volume] in Blood by Automated count Ordered By: Quang Lima on 05-58-0086Mlymphljpfk (Bld) [#/Vol]1.1 10*3/uLNormal 1.00-4.8Del[facility] County HospitalComment on above:Performed By: #### HEMOCHROM, SMAB, ABRAHAM, IGG, ELF, MITOM2, HCV RX PCR, HAAB, HBSAB, HCBIGM, HBCAB, HBSAG, L-K MICRO, ALPHA PHEN, HAABT, CERULOP #### [facility] , #### CMP, A1C WTH eA, KELVIN, CRP, CBC, LIPID #### [facility] [address] [place] [address] USALymphocytes/100 leukocytes in Blood by Automated count Ordered By: Imad Darienad on 91-34-8007Zbnefhyellv/100 WBC (Bld)15.4 %Normal. [facility] County HospitalComment on above:Performed By: #### HEMOCHROM, SMAB, ABRAHAM, IGG, ELF, MITOM2, HCV RX PCR, HAAB, HBSAB, HCBIGM, HBCAB, HBSAG, L-K MICRO, ALPHA PHEN, HAABT, CERULOP #### [facility] , #### CMP, A1C WTH eA, KELVIN, CRP, CBC, LIPID #### [facility] [address] [place] [address] [Entitic mass] by Automated countOrdered By: Imad Asaad on 49-75-4020UZV (RBC) [Entitic mass]30.7 udKccxfc13.5-35.2FSt. Francis HospitalComment on above:Performed By: #### HEMOCHROM, SMAB, ABRAHAM, IGG, ELF, MITOM2, HCV RX PCR, HAAB, HBSAB, HCBIGM, HBCAB, HBSAG, L-K MICRO, ALPHA PHEN, HAABT, CERULOP #### [facility] , #### CMP, A1C WTH eA, KELVIN, CRP, CBC, LIPID #### [facility] [address] [place] [address] Auto (RBC) [Mass/Vol]Ordered By: Imad Asaad on 43-34-0077VUQN (RBC) [Mass/Vol]33.3 g/dL32.5-35.6FSt. Francis HospitalMCV [Entitic volume] by Automated countOrdered By: Quang Lima on 76-29-9822QQK (RBC) [Entitic vol]92.0 nLVwafxe44.5-101Del[facility] County HospitalComment on above:Performed By: #### HEMOCHROM, SMAB, ABRAHAM, IGG, ELF, MITOM2, HCV RX PCR, HAAB, HBSAB, HCBIGM, HBCAB, HBSAG, L-K MICRO, ALPHA PHEN, HAABT, CERULOP #### [facility] , #### CMP, A1C WTH eA, KELVIN, CRP, CBC, LIPID #### [facility] [address] [place] [address] USAMitochondrial (M2) Antibodyon 13-71-2812Wykjetbeirtmt (M2) Antibody<20.2Idpycu6.0-20.0The [facility] Physician GroupComment on above:Result Comment: Negative 0.0 - 20.0 Equivocal 20.1 - 24.9 Positive >24.9 Mitochondrial (M2) Antibodies are found in 90-96% of patients with primary biliary cirrhosis. Performed at: - [facility] [id number] Heel Sprayer: Mike Trinh PhD, Phone: [phone] By: #### HEMOCHROM, SMAB, ABRAHAM, IGG, ELF, MITOM2, HCV RX PCR, HAAB, HBSAB, HCBIGM, HBCAB, HBSAG, L-K MICRO, ALPHA PHEN, HAABT, CERULOP ####[facility] ,#### CMP, A1C WTH eA, KELVIN, CRP, CBC, LIPID ####[facility] [address] [place] [address] USANeutrophils [#/volume] in Blood by Automated count Ordered By: Quang Lima on 38-52-7738Hnldsflhrzf (Bld) [#/Vol]4.9 10*3/uLNormal 1.8-7.7FSt. Francis HospitalComment on above:Performed By: #### HEMOCHROM, SMAB, ABRAHAM, IGG, ELF, MITOM2, HCV RX PCR, HAAB, HBSAB, HCBIGM, HBCAB, HBSAG, L-K MICRO, ALPHA PHEN, HAABT, CERULOP #### [facility] , #### CMP, A1C WT eA, KELVIN, CRP, CBC, LIPID #### [facility] [address] [place] [address] USANo Panel InformationOrdered By: Imad Asaad on 04-15-2024 Estimated GFR (CKD-EPI)> 60.0 mL/MinDelaware County HospitalPharmacy Creatinine Clearance (ChemN/Bucyrus Community HospitalNucleated erythrocytes [Presence] in Blood by Automated countOrdered By: Imad Asaad on 97-70-0535Hkugudfge RBC Auto Ql (Bld)0.1 /100{WBC}0-0.5FSt. Francis HospitalPlatelet mean volume [Entitic volume] in Blood by Automated count Ordered By: Imad Asaad on 18-74-9637Wwffzzng mean volume (Bld) [Entitic vol]9.1 fLNormal6.6-10.1FSt. Francis HospitalComment on above:Performed By: #### HEMOCHROM, SMAB, ABRAHAM, IGG, ELF, MITOM2, HCV RX PCR, HAAB, HBSAB, HCBIGM, HBCAB, HBSAG, L-K MICRO, ALPHA PHEN, HAABT, CERULOP #### [facility] , #### CMP, A1C WTH eA, KELVIN, CRP, CBC, LIPID #### [facility] [address] [place] [address] USAPlatelets [#/volume] in Blood by Automated countOrdered By: Imad Asaad on 11-77-1603Zbiolpxqn (Bld) [#/Vol]280 10*3/aTGqtcxt644-390 [facility] County HospitalComment on above:Performed By: #### HEMOCHROM, SMAB, ABRAHAM, IGG, ELF, MITOM2, HCV RX PCR, HAAB, HBSAB, HCBIGM, HBCAB, HBSAG, L-K MICRO, ALPHA PHEN, HAABT, CERULOP #### [facility] , #### CMP, A1C WTH eA, KELVIN, CRP, CBC, LIPID #### [facility] [address] [place] [address] USAPotassium [Moles/volume] in Serum or PlasmaOrdered By: Imad Asaad on 10-69-8111Xetxitncd [Moles/Vol]5.0 mmol/LNormal3.5-5.1FSt. Francis HospitalComment on above:Performed By: #### HEMOCHROM, SMAB, ABRAHAM, IGG, ELF, MITOM2, HCV RX PCR, HAAB, HBSAB, HCBIGM, HBCAB, HBSAG, L-K MICRO, ALPHA PHEN, HAABT, CERULOP #### [facility] , #### CMP, A1C WTH eA, KELVIN, CRP, CBC, LIPID #### [facility] [address] [place] [address] USAProtein [Mass/volume] in Serum or PlasmaOrdered By: Imad Asaad on 23-82-0944Qwmbtmk [Mass/Vol]7.4 g/dLNormal6.4-8.9Del[facility] County HospitalComment on above:Performed By: #### HEMOCHROM, SMAB, ABRAHAM, IGG, ELF, MITOM2, HCV RX PCR, HAAB, HBSAB, HCBIGM, HBCAB, HBSAG, L-K MICRO, ALPHA PHEN, HAABT, CERULOP #### [facility] , #### CMP, A1C WTH eA, KELVIN, CRP, CBC, LIPID #### [facility] [address] [place] [address] USASerum globulin measurement by calculation (mass/volume) Ordered By: Imad Asaad on 10-15-3261Kjciqzoa (S) [Mass/Vol]2.7 g/dLNormal [facility] County HospitalComment on above:Performed By: #### HEMOCHROM, SMAB, ABRAHAM, IGG, ELF, MITOM2, HCV RX PCR, HAAB, HBSAB, HCBIGM, HBCAB, HBSAG, L-K MICRO, ALPHA PHEN, HAABT, CERULOP #### [facility] , #### CMP, A1C WTH eA, KELVIN, CRP, CBC, LIPID #### [facility] [address] [place] [address] USASerum or plasma albumin/globulin mass ratioOrdered By: Imad Asaad on 06-89-1028Cufbdkj/Globulin [Mass ratio]1.7 {ratio}NormalDelaware County HospitalComment on above:Performed By: #### HEMOCHROM, SMAB, ABRAHAM, IGG, ELF, MITOM2, HCV RX PCR, HAAB, HBSAB, HCBIGM, HBCAB, HBSAG, L-K MICRO, ALPHA PHEN, HAABT, CERULOP #### [facility] , #### CMP, A1C WTH eA, KELVIN, CRP, CBC, LIPID #### [facility] [address] [place] [address] USASerum or plasma anion gap determinationOrdered By: Imad Asaad on 97-16-4356Unbzl gap [Moles/Vol]13.7 mmol/LNormal6.0-15.0Del[facility] County HospitalComment on above:Performed By: #### HEMOCHROM, SMAB, ABRAHAM, IGG, ELF, MITOM2, HCV RX PCR, HAAB, HBSAB, HCBIGM, HBCAB, HBSAG, L-K MICRO, ALPHA PHEN, HAABT, CERULOP #### [facility] , #### CMP, A1C WTH eA, KELVIN, CRP, CBC, LIPID #### [facility] [address] [place] [address] USASerum or plasma high density lipoprotein (HDL) cholesterol measurementOrdered By: Imad Asaad on 18-38-0904Sgkfxpmplsk in HDL [Mass/Vol]43 mg/bRVknquy97-25YtmvhgckyDelaware County HospitalComment on above:HDL CHOL ATP- III CLASSIFICATION Cardiovascular RiskHDL > or equal to 60 mg/dL LOWHDL < 40 mg/dL HIGHResult Comment: HDL CHOL ATP-III CLASSIFICATION Cardiovascular Risk HDL > or equal to 60 mg/dL LOW HDL < 40 mg/dL HIGHPerformed By: #### HEMOCHROM, SMAB, ABRAHAM, IGG, ELF, MITOM2, HCV RX PCR, HAAB, HBSAB, HCBIGM, HBCAB, HBSAG, L-K MICRO, ALPHA PHEN, HAABT, CERULOP ####[facility] ,#### CMP, A1C WTH eA, KELVIN, CRP, CBC, LIPID ####[address] [place] [address] USASerum or plasma total cholesterol/high density lipoprotein (HDL) cholesterol mass rat Ordered By: Quang Lima on 71-75-8248Qanrqluzvsl.total/Cholesterol in HDL [Mass ratio]4.7 {ratio}Normal<5.0Del[facility] County HospitalComment on above: Result Comment: PERFORMED BY: [facility] [address] [place] [id number] PATHOLOGIST NETWORKING ADMINISTRATOR LUPILLO THURSTON M.D.Performed By: #### HEMOCHROM, SMAB, ABRAHAM, IGG, ELF, MITOM2, HCV RX PCR, HAAB, HBSAB, HCBIGM, HBCAB, HBSAG, L-K MICRO, ALPHA PHEN, HAABT, CERULOP ####[facility] ,#### CMP, A1C WTH eA, KELVIN, CRP, CBC, LIPID ####[address] [address] USASmooth Muscle Antibodyon 75-74-0509Cymxxy Muscle Akgruhnh0Agmofq4-37Nta [facility] Physician GroupComment on above:Result Comment: Negative 0 - 19 Weak positive 20 - 30 Moderate to strong positive >30 Actin Antibodies are found in 52-85% of patients with autoimmune hepatitis or chronic active hepatitis and in 22% of patients with primary biliary cirrhosis.Performed By: #### HEMOCHROM, SMAB, ABRAHAM, IGG, ELF, MITOM2, HCV RX PCR, HAAB, HBSAB, HCBIGM, HBCAB, HBSAG, L-K MICRO, ALPHA PHEN, HAABT, CERULOP ####[facility] ,#### CMP, A1C WTH eA, KELVIN, CRP, CBC, LIPID ####[address] [address] USASodium [Moles/volume] in Serum or PlasmaOrdered By: Quang Lima on 61-87-5967Sbjdfi [Moles/Vol]139 mmol/LVdcgye418-035TpzttnfvjDelaware County HospitalComment on above:Performed By: #### HEMOCHROM, SMAB, ABRAHAM, IGG, ELF, MITOM2, HCV RX PCR, HAAB, HBSAB, HCBIGM, HBCAB, HBSAG, L-K MICRO, ALPHA PHEN, HAABT, CERULOP #### [facility] , #### CMP, A1C WTH eA, KELVIN, CRP, CBC, LIPID #### [facility] [address] [place] [address] USATriglyceride [Mass/volume] in Serum or PlasmaOrdered By: Quang Lima on 76-10-2875Ghephnwkneoq [Mass/Vol]244 mg/dLHigh0-149Del[facility] County HospitalComment on above:TRIG ATP III CLASSIFICATIONTRIG less than 150 mg/dL NormalTRIG 150-199 mg/dL Borderline highTRIG 200-500 mg/dL High TRIG greater than 500 mg/dL Very highStandard traceable to the Center for Disease Conrtrol and Prevention (CDC) test method.Urea nitrogen [Mass/volume] in Serum or PlasmaOrdered By: Quang Lima on 78-25-6327Kufp nitrogen [Mass/Vol]24 mg/dLNormal7-25Del[facility] County HospitalComment on above:Performed By: #### HEMOCHROM, SMAB, ABRAHAM, IGG, ELF, MITOM2, HCV RX PCR, HAAB, HBSAB, HCBIGM, HBCAB, HBSAG, L-K MICRO, ALPHA PHEN, HAABT, CERULOP #### [facility] , #### CMP, A1C WTH eA, KELVIN, CRP, CBC, LIPID #### [facility] [address] [place] [address] USAActivated partial thromboplastin time (aPTT) in platelet poor plasma by coagulation aOrdered By: Quang Lima on 06-17-1935kLSU Coag (PPP) [Time]35.1 s25.1-36.5FSt. Francis HospitalComment on above:A hematocrit value greater than 55% may lead to inaccurate results in coagulation testing. Patientshaving hematocrit values >55% require a special collection tube for coagulation studies. Please contact the laboratory at [phone] for redraw instructions.CT enterographyon 62-88-1980KA enterographyDAYTON CHILDREN'S [facility]ITAL [place] [address] [place] [address] CT Scan Report Signed Patient: Sis Johnson MR#: [id number] 12 : 1950 Acct:[id number] Age/Sex: 73 / M ADM Date: 04/09/24 Loc: Room: Type: [facility] Attending Dr: Quang Lima MD Copies to: Quang Lima MD Ordering Provider: Quang Lima MD Date of Service: 04/09/24 CT/CT enterography: K50.90 - Crohn's disease, unspecified, without complications CT ABDOMEN AND PELVIS WITH INTRAVENOUS CONTRAST: (Enterography protocol) CLINICAL HISTORY: Crohn's disease. COMPARISON: None TECHNIQUE: Spiral images were obtained through the abdomen and pelvis following the administration of intravenous contrast. Enterography protocol was utilized. This CT exam was performed using one or more following dose reduction techniques: Automated exposure control, adjustment of the mA and/or kV according to patient size, or use of iterative reconstruction technique. FINDINGS: Lung Bases: [Mild bibasilar atelectasis/scarring.] Organs:Liver gallbladder portal vein spleen pancreas and adrenal glands unremarkable. Punctate stone left kidney. Right kidney appears unremarkable other than a small cyst. Abdominal images moderate calcification without aneurysm.[ GI: Stomach is grossly unremarkable. Small bowel appears nondilated. Normally positioned duodenum. Normal fold pattern is seen. No abnormal wall thickening or enhancement is seen. Terminal ileitis appears grossly unremarkable. Appendix is normal. Left colon diverticulosis. No abnormal wall thickening or enhancement is seen involving the colon. No evidence of obstruction.[ Pelvis:[Urinary bladder and prostate gland appear unremarkable.] Peritoneum/Retroperitoneum:No free air, free fluid or lymphadenopathy.[ Abd wall/Bones:Abdominal wall demonstrates no acute findings. Osseous structures demonstrate degenerative change.[ CT/CT enterography IMPRESSION: No CT evidence of active Crohn's disease. No acute intra-abdominal process is seen. Impression dictated by: Chris Kolb Jr., D.O.04/09/2024 3:56 PM Dictation Location: [place] [address] Transcribed By: [facility] 04/09/24 1556 Dictated By: Chris Kolb Jr, DO 04/09/24 1536 Signed By: 04/09/24 1556NormPhysicians Regional Medical [facility] Boulevard Physician GroupCoagulation Profileon 04-09-2024 aPTT Coag (Bld) [Time]35.1 aCplxud65.1-36.5The [facility] Physician Laird HospitalComment on above:Result Comment: A hematocrit value greater than 55% may lead to inaccurate results in coagulation testing. Patients having hematocrit values >55% require a special collection tube for coagulation studies. Please contact the laboratory at [phone] for redraw instructions. PERFORMED BY: [place] [id number] PATHOLOGIST NETWORKING ADMINISTRATOR LUPILLO THURSTON M.D.Performed By: #### BUN, PP, CREAT, PLT #### [place] [id number] USACreatinineon 08-04-7622Jqwgjlthpb Clr Calc Oltfgaqe15.72 NormalHca Florida Largo Hospital Physician Laird HospitalComment on above:Result Comment: PERFORMED BY: [place] [id number] PATHOLOGIST NETWORKING ADMINISTRATOR LUPILLO THURSTON M.D.Performed By: #### BUN, PP, CREAT, PLT #### [facility] [address] [place], [place] [id number] USAGFR/1.73 sq M.predicted MDRD (S/P/Bld) [Vol rate/Area] mL/min/{1.73_m2}NormalHca Florida Largo Hospital Physician Laird HospitalComment on above:Performed By: #### BUN, PP, CREAT, PLT #### [facility] [address] [place], [place] [address] USACreatinine [Mass/volume] in Serum or PlasmaOrdered By: Imad Asaad on 01-52-6486Jqredkyziz [Mass/Vol]1.17 mg/dLNormal0.70-1.30Del[facility] County HospitalComment on above:Performed By: #### BUN, PP, CREAT, PLT #### [facility] [address] [place] [address] USAINR in Platelet poor plasma by Coagulation assayOrdered By: Quang Lima on 99-81-6576HMP Coag (PPP) [Relative time]1.0 {INR}Normal [facility] County HospitalComment on above:INR Therapeutic Range A) Pre- and Peroperative OAT started two weeks before surgery. NOT HIP SURGERY: 1.5 - 2.5 HIP SURGERY: 2 - 3B) Primary and secondary prevention of venous THROMBOSIS: 2 - 3C) Active venous thrombosis, pulmonary embolismand prevention of recurrent venous thrombosis: 2 - 3D) Prevention of arterial thromboembolismincluding patients with mechanical heart valves: 3 - 4.5Result Comment: INR Therapeutic Range A) Pre- and Peroperative OAT started two weeks before surgery. NOT HIP SURGERY: 1.5 - 2.5 HIP SURGERY: 2 - 3 B) Primary and secondary prevention of venous THROMBOSIS: 2 - 3 C) Active venous thrombosis, pulmonary embolism and prevention of recurrent venous thrombosis: 2 - 3 D) Prevention of arterial thromboembolism including patients with mechanical heart valves: 3 - 4.5Performed By: #### BUN, PP, CREAT, PLT #### [facility] [address] [place] [address] USALon 61-07-6181KQxsbhzbm: [id number] Received: 04/09/24 Status: SOTERO Mo Num: [id number] Spec Type: Surgical Subm Dr: Oleg Robbins DO Tissues: A Liver - Needle Biopsy (RANDOM LIVER BX) Procedures: HE/2, Gross/Micro L5 Age/ Patient Sex Location Account Attending Physician Sis Johnson/Po [id number] Quang Lima MD SPEC NUM: [id number] RECD: 04/09/24 STATUS: SOTERO MO NUM: [id number] CINTHYA: 04/09/[address]: Oleg Robbins DO ENTERED: 04/09/[address] [facility] [address]: Quang Lima MD SPEC TYPE: Surgical DEPT: S ENTERED BY: [id number] RECV BY: [id number] ORDERED: HE/2, Gross/Micro L5 ORDERED: HE/2, Gross/Micro L5 Supplemental Report Addendum 1 Entered: 05/07/24 Liver, random biopsy: Hepatic parenchyma with macrovesicular steatosis involving 20% of the parenchymal volume without fibrosis on routine H E. Focal nonspecific portal inflammation. See attached [facility] report Addendum Signed (signature on file) Jamey Panchal MD 05/07/24 115 Pathological Diagnosis Needle liver biopsy: Liver tissue with mild to moderate parenchymal fatty change with rare chronic inflammation within portal triads. No bridging fibrosis or cirrhosis is identified. Note: The inflammatory changes consists predominantly of lymphocytes and involve predominantly the portal triads with rare foci of parenchymal inflammation. Specimen: [id number] Received: 04/09/24 Status: SOTERO Mo Num: [id number] Spec Type: Surgical Subm Dr: Oleg Robbins DO Tissues: A Liver - Needle Biopsy (RANDOM LIVER BX) Procedures: DANIEL/2, Gross/Micro L5 Patient: Sis [id number] (Continued) Specimen: [id number] Received: 04/09/24 (Continued) Signed (signature on file) Jamey Panchal MD 04/15/241807 Specimen: [id number] Received: 04/09/24 Status: SOTERO Mo Num: [id number] Spec Type: Surgical Subm Dr: Oleg Robbins DO Tissues: A Liver - Needle Biopsy (RANDOM LIVER BX) Procedures: DANIEL/Perry Archer/Kenyon L5 Patient: Sis Johnson [id number] (Continued) Specimen: [id number] Received: 04/09/24 (Continued) Clinical Information Crohn's disease, fatty liver, Po HURD SARAHY Gross Description The specimen was received in formalin with the patient's name and random liver biopsy and consists of 3 santana needle core biopsies ranging in length from 1.4 to 2.7 cm in length each with an average diameter of 0.1 cm. The specimen is entirely submitted in cassette A1. CPT Codes 26951 Specimen: [id number] Received: 04/09/24 Status: SOTERO Mo Num: [id number] Spec Type: Surgical Subm Dr: Oleg Robbins DO Tissues: A Liver - Needle Biopsy (RANDOM LIVER BX) Procedures: Perry GRANT/Kenyon L5 Patient: Sis Johnson [id number] (Continued) Signed (signature on file) Jamey Panchal MD 04/15/[address] [place] [address] Physician GroupNo Panel InformationOrdered By: tyler Lima on 79-04-9885Cikircijh GFR (CKD-EPI)> 60.0 mL/MinDelaware County HospitalPharmacy Creatinine Clearance (Chem61.72Delaware County HospitalPlatelets [#/volume] in Blood by Automated countOrdered By: Quang Lima on 35-85-8524Gnlywhmin (Bld) [#/Vol]256 10*3/xNNaptep658-489KrsvxovwiDelaware County HospitalComment on above:Result Comment: PERFORMED BY: [place] [address] PATHOLOGIST NETWORKING ADMINISTRATOR LUPILLO THURSTON M.D.Performed By: #### BUN, PP, CREAT, PLT #### [facility] [address] [place] [address] USAProthrombin time (PT)Ordered By: Quang Lima on 04-09-2024 PT Coag (PPP) [Time]12.1 sNormal9.0-12.9Del[facility] County HospitalComment on above:A hematocrit value greater than 55% may lead to inaccurate results in coagulation testing. Patientshaving hematocrit values >55% require a special collection tube for coagulation studies. Please contact the laboratory at [phone] for redraw instructions.Result Comment: A hematocrit value greater than 55% may lead to inaccurate results in coagulation testing. Patients having hematocrit values >55% require a special collection tube for coagulation studies. Please contact the laboratory at [phone] for redraw instructions.Performed By: #### BUN, PP, CREAT, PLT #### [facility] [address] [place] [address] USAUS guide needle placementon 08-25-0105YU guide needle placementDAYTON CHILDREN'S [facility] Main [place] [address] [place] [address] Ultrasound Report Signed Patient: Sis Johnson MR#: [id number] 12 : 1950 Acct:[id number] Age/Sex: 73 / M ADM Date: 04/09/24 Loc: Room: Type: [facility] Attending Dr: Quang Lima MD Ordering Provider: Quang Lima MD Date of Service: 04/09/24 US/US needle biopsy: K75.81 - Nonalcoholic steatohepatitis (HURD) ([id number]) US/US guide needle placement: . Copies to: Quang Lima MD Ultrasound-guided Random Liver Biopsy HISTORY: Hepatic steatosis The biopsy device: 18-gauge by 10 cm Bard biopsy gun utilized. Core samples: 3 core samples were obtained. Informed consent was obtained discussing the procedure and risks. Patient agreed. The skin entry site was localized with ultrasound. Skin entry prepped and draped in sterile fashion with local lidocaine administered. The biopsy device was administered into the liver with ultrasound guidance. Adequate core biopsy samples obtained. Samples sent to pathology for further assessment. Patient states no immediate complications. No active bleeding identified with ultrasound. US/US needle biopsy IMPRESSION: Successful ultrasound-guided random liver biopsy. The one hour post biopsy ultrasound liver performed. No acute bleed or hematoma identified. IMPRESSION: No acute bleed or hematoma. Impression dictated by: Oleg Robbins M.D.04/09/2024 12:10 PM Dictation Location: [place] [address] Tech: Madison Ventura Transcribed By: [facility] 04/09/24 1210 Dictated By: Oleg Robbins DO 04/09/24 1209 Signed By: 04/09/24 1210NoAsheville Specialty Hospital Physician GroupUrea nitrogen [Mass/volume] in Serum or PlasmaOrdered By: Quang Lima on 24-29-1150Qscx nitrogen [Mass/Vol]23 mg/dLNormal02-12Del[facility] County HospitalComment on above:Performed By: #### BUN, PP, CREAT, PLT #### [address] [address] [facility] S[facility] NEW MEXICOAlanine aminotransferase [Enzymatic activity/volume] in Serum or PlasmaOrdered By: John Morris on 65-25-4778RSP [Catalytic activity/Vol]21 U/L7-52Del[facility] County HospitalAlbumin [Mass/volume] in Serum or Plasma by Bromocresol green (BCG) dye binding methoOrdered By: John Morris on 06-37-7770Ujyratm BCG dye [Mass/Vol]4.2 g/dL3.5-5.7 [facility] County HospitalAlkaline phosphatase [Enzymatic activity/volume] in Serum or PlasmaOrdered By: John Morris on 12-03-2022 ALP [Catalytic activity/Vol]53 U/T77-401ZvihwnczmDelaware County Hospital Aspartate aminotransferase [Enzymatic activity/volume] in Serum or PlasmaOrdered By: John Morris on 82-07-1580YDX [Catalytic activity/Vol]19 U/L13-39 [facility] HospitalBasophils Auto (Bld) [#/Vol]Ordered By: John Morris on 70-53-3230Fugnpcmuh (Bld) [#/Vol]0.0 10*3/uL0.0-0.2 [facility] HospitalBasophils/100 WBC Auto (Bld)Ordered By: John Morris on 37-44-1470Uzlhwqfya/100 WBC (Bld)0.7 %.Del[facility] County HospitalBilirubin.total [Mass/volume] in Serum or PlasmaOrdered By: John Morris 05-66-2386Rtcpsanhf [Mass/Vol]0.5 mg/dL0.3-1.0Delaware County HospitalCalcium [Mass/volume] in Serum or PlasmaOrdered By: John Morris 23-38-2644Hxraxsg [Mass/Vol]9.5 mg/dL8.6-10.3FSt. Francis HospitalCarbon dioxide, total [Moles/volume] in Serum or Plasma Ordered By: John Morris 08-04-2892XA4 [Moles/Vol]26.8 mmol/L21.0-31.0 [facility] HospitalChloride [Moles/volume] in Serum or Plasma Ordered By: John Morris on 29-74-2115Mnylmdwa [Moles/Vol]108 mmol/L98-107 [facility] HospitalCreatinine [Mass/volume] in Serum or Plasma Ordered By: John Morris on 39-49-6600Mjrepueeim [Mass/Vol]1.04 mg/dL 0.70-1.30[facility] HospitalEosinophils Auto (Bld) [#/Vol]Ordered By: John Morris on 44-69-6909Hqycyptvgim (Bld) [#/Vol]0.3 10*3/uL0.0-0.45 [facility] HospitalEosinophils/100 WBC Auto (Bld)Ordered By: John Morris on 73-79-8473Fagnjeodfgs/100 WBC (Bld)5.3 %.[facility] HospitalErythrocyte distribution width Auto (RBC) [Ratio]Ordered By: John Morris on 21-93-8598Cdowbaxcujq distribution width (RBC) [Ratio] 13.5 %12.0-14.8[facility] HospitalGlobulin Calc (S) [Mass/Vol] Ordered By: John Morris 96-95-5252Lljcfgiv (S) [Mass/Vol]2.4 g/dL [facility] HospitalGlucose [Mass/volume] in Serum or PlasmaOrdered By: John Morris 95-24-1175Anpiykk [Mass/Vol]103 mg/kR83-461HvsitrecvDelaware County HospitalComment on above:ADA recommended reference rangeRandom Glucose Reference Range is dependent on time and content of last meal. Glucose of more than 200 mg/dL in a nonstressed, ambulatory subject supports the diagnosisof Diabetes Mellitus.Hematocrit Auto (Bld) [Volume fraction]Ordered By: John Morris on 13-30-6351Dculiyqssi (Bld) [Volume fraction]40.2 % 38.8-50.0[facility] HospitalHemoglobin [Mass/volume] in Blood Ordered By: John Morris 20-68-3005Ecvaqawvxe (Bld) [Mass/Vol]13.0 g/dL 13.0-17.0[facility] HospitalLeukocytes [#/volume] corrected for nucleated erythrocytes in Blood by Automated counOrdered By: John Morris on 90-52-9199MRV corrected for nucl RBC Auto (Bld) [#/Vol]6.1 10*3/uL4.1-10.5 [facility] HospitalLymphocytes Auto (Bld) [#/Vol]Ordered By: John Morris on 32-92-2226Loegqyniadu (Bld) [#/Vol]0.9 10*3/uL1.00-4.8 [facility] HospitalLymphocytes/100 WBC Auto (Bld)Ordered By: John Morris on 39-03-0180Herwcbxdytw/100 WBC (Bld)15.0 %.[facility] Auto (RBC) [Entitic mass]Ordered By: John Morris on 54-43-4572JKS (RBC) [Entitic mass]30.1 pg27.5-35.2FSCCI Hospital LimaHC Auto (RBC) [Mass/Vol]Ordered By: John Morris on 25-14-6520XFMP (RBC) [Mass/Vol]32.5 g/dL32.5-35.6FSt. Francis HospitalMCV Auto (RBC) [Entitic vol]Ordered By: John Morris on 12-03-2022 MCV (RBC) [Entitic vol]92.9 fL83.5-101[facility] HospitalMonocytes Auto (Bld) [#/Vol]Ordered By: John Morris on 12-96-9901Bnuslwkma (Bld) [#/Vol]0.6 10*3/uL0.0-0.8[facility] HospitalMonocytes/100 WBC Auto (Bld)Ordered By: John Morris on 62-71-2006Gjlulyssu/100 WBC (Bld)10.4 %. [facility] HospitalNeutrophils Auto (Bld) [#/Vol]Ordered By: John Morris on 47-70-0542Jgolsggpfuc (Bld) [#/Vol]4.2 10*3/uL1.8-7.7 [facility] HospitalNeutrophils/100 WBC Auto (Bld)Ordered By: John Morris on 76-59-6050Vvnbdbllqkg/100 WBC (Bld)68.6 %.[facility] HospitalNo Panel InformationOrdered By: John Morris on 59-87-9815Ylryjvewu GFR (CKD-EPI)> 60.0 mL/MinDelaware County Hospital Pharmacy Creatinine Clearance (ChemN/AFSt. Francis HospitalNucleated erythrocytes [Presence] in Blood by Automated countOrdered By: John Morris on 70-34-3931Vylqlmkhu RBC Auto Ql (Bld)0.1 /100{WBC}0-0.5FSt. Francis HospitalPlatelet mean volume Auto (Bld) [Entitic vol]Ordered By: John Morris on 78-97-6862Nzlguefs mean volume (Bld) [Entitic vol]9.0 fL 6.6-10.1FSt. Francis HospitalPlatelets Auto (Bld) [#/Vol]Ordered By: John Morris on 27-13-2383Hqzwmaniu (Bld) [#/Vol]205 10*3/wK165-696 [facility] HospitalPotassium [Moles/volume] in Serum or Plasma Ordered By: John Morris on 23-13-3708Prrqmyizx [Moles/Vol]4.5 mmol/L 3.5-5.1FSt. Francis HospitalProtein [Mass/volume] in Serum or Plasma Ordered By: John Morris on 87-95-0240Dfuqvjo [Mass/Vol]6.6 g/dL6.4-8.9 [facility] HospitalRBC Auto (Bld) [#/Vol]Ordered By: John Morris on 52-71-2331RTL (Bld) [#/Vol]4.33 10*6/uL3.90-5.60[facility] Hospitalerum or plasma albumin/globulin mass ratioOrdered By: John Morris on 52-82-5530Kckpsnu/Globulin [Mass ratio]1.8 {ratio}[facility] Hospitalerum or plasma anion gap determinationOrdered By: John Morris on 06-44-8393Zldyw gap [Moles/Vol]12.7 mmol/L6.0-15.0 [facility] Hospitalodium [Moles/volume] in Serum or PlasmaOrdered By: John Morris on 52-99-8614Ffsusj [Moles/Vol]143 mmol/B810-550 [facility] HospitalUrea nitrogen [Mass/volume] in Serum or Plasma Ordered By: John Morris on 95-57-7813Vipg nitrogen [Mass/Vol]19 mg/dL7-25 [facility] HospitalWBC Auto (Bld) [#/Vol]Ordered By: John Morris on 97-56-2119VIT (Bld) [#/Vol]6.1 10*3/uL4.1-10.5FSt. Francis HospitalAlbumin [Mass/volume] in Serum or PlasmaOrdered By: Maria T García on 77-88-3270Yzxbvxz [Mass/Vol]3.8 g/dL3.2-5.5FSt. Francis Hospital Alkaline phosphatase [Enzymatic activity/volume] in Serum or PlasmaOrdered By: Maria T García on 20-39-4801FLS [Catalytic activity/Vol]55 U/D05-45XjiibjhshDelaware County HospitalAspartate aminotransferase [Enzymatic activity/volume] in Serum or PlasmaOrdered By: Maria T García on 62-63-9060TDN [Catalytic activity/Vol]18 U/Z57-80OmljbomasDelaware County HospitalBasophils Auto (Bld) [#/Vol]Ordered By: Maria T García on 48-03-8756Espaynuky (Bld) [#/Vol]0.1 10*3/uL 0.0-0.2FSt. Francis HospitalBasophils/100 WBC Auto (Bld)Ordered By: Maria T García on 59-77-3378Rjmrwnyho/100 WBC (Bld)0.8 %.[facility] HospitalCT biopsyOrdered By: Maria T García on 49-11-9456Spfdicdeccj [Mass/Vol]273 mg/dR684-219FedvoywrcDelaware County HospitalCalcium [Mass/volume] in Serum or PlasmaOrdered By: Maria T Gacría on 50-70-8235Wwbsciz [Mass/Vol]9.6 mg/dL8.2-10.2FSt. Francis HospitalCarbon dioxide, total [Moles/volume] in Serum or PlasmaOrdered By: Maria T García on 43-60-4595BU6 [Moles/Vol]25.5 mmol/L22.0-30.0[facility] HospitalCreatinine and Glomerular filtration rate.predicted panel (S/P/Bld)Ordered By: Maria T García on 31-54-4635Xapmyytoob [Mass/Vol]1.04 mg/dL0.64-1.27[facility] HospitalEosinophils Auto (Bld) [#/Vol]Ordered By: Maria T García on 09-04-2022 Eosinophils (Bld) [#/Vol]0.3 10*3/uL0.0-0.45[facility] Eosinophils/100 WBC Auto (Bld)Ordered By: Maria T García on 09-04-2022 Eosinophils/100 WBC (Bld)4.2 %.[facility] HospitalErythrocyte distribution width Auto (RBC) [Ratio]Ordered By: Maria T García on 09-04-2022 Erythrocyte distribution width (RBC) [Ratio]14.0 %12.0-14.8[facility] HospitalEstimated glomerular filtration rate (GFR) non- Ordered By: Maria T García on 07-97-5520PRT/1.73 sq M.predicted among non-blacks MDRD (S/P/Bld) [Vol rate/Area]> 60 mL/MinDelaware County Hospital Ferritin [Mass/volume] in Serum or PlasmaOrdered By: Maria T García on 09-04-2022 Ferritin [Mass/Vol]66.2 ng/mL23.9-336.2FSt. Francis HospitalFolate [Mass/volume] in Serum or PlasmaOrdered By: Maria T García on 09-77-0877Yzxtme [Mass/Vol]5.5 ng/mL>5.9[facility] HospitalComment on above:Folate reference range: >5.9 ng/mlThe WHO technical consultation on folate and vitamin v25dwfyvlpnwmbc has determined that folate concentrations lessthan 4 ng/ml are considered deficient.Globulin Calc (S) [Mass/Vol]Ordered By: Maria T García on 36-60-7182Audqpqvg (S) [Mass/Vol]2.6 g/dLDelaware County Hospital Hematocrit Auto (Bld) [Volume fraction]Ordered By: Maria T García on 09-04-2022 Hematocrit (Bld) [Volume fraction]41.1 %38.8-50.0[facility] HospitalHemoglobin [Mass/volume] in BloodOrdered By: Maria T García on 09-04-2022 Hemoglobin (Bld) [Mass/Vol]13.4 g/dL13.0-17.0[facility] Iron [Mass/volume] in Serum or PlasmaOrdered By: Mari aT García on 19-84-5570Jifh [Mass/Vol]115 ug/lA97-428HkmslitukDelaware County HospitalIron binding capacity [Mass/volume] in Serum or PlasmaOrdered By: Maria T García on 54-42-6355Qbmg binding capacity [Mass/Vol]382 ug/sG629-170GdrwiribgDelaware County HospitalIron saturation [Mass Fraction] in Serum or PlasmaOrdered By: Maria T García on 22-61-5157Jigv saturation [Mass fraction]30.1 %20-50[facility] HospitalLaboratory - Chemistry and Chemistry - challengeOrdered By: Maria T García on 06-67-0562Dgcpbbvxx (Vitamin B12) [Mass/Vol]1326 pg/sR073-326RkanacprrDelaware County HospitalLeukocytes [#/volume] corrected for nucleated erythrocytes in Blood by Automated counOrdered By: Maria T García on 09-04-2022 WBC corrected for nucl RBC Auto (Bld) [#/Vol]7.1 10*3/uL4.1-10.5FSt. Francis HospitalLymphocytes Auto (Bld) [#/Vol]Ordered By: Maria T García on 20-98-6531Kguqpkqrdim (Bld) [#/Vol]0.8 10*3/uL1.00-4.8[facility] HospitalLymphocytes/100 WBC Auto (Bld)Ordered By: Maria T García on 98-38-1146Bimzxgtlllt/100 WBC (Bld)11.7 %.[facility] HospitalH Auto (RBC) [Entitic mass]Ordered By: Maria T García on 84-62-1034NOO (RBC) [Entitic mass]30.2 pg27.5-35.2FSt. Francis HospitalMCHC Auto (RBC) [Mass/Vol]Ordered By: Maria T García on 18-26-6357GQEZ (RBC) [Mass/Vol]32.7 g/dL 32.5-35.6FSt. Francis HospitalMCV Auto (RBC) [Entitic vol]Ordered By: Maria T García on 58-39-0577TCJ (RBC) [Entitic vol]92.6 fL83.5-101[facility] HospitalMonocytes Auto (Bld) [#/Vol]Ordered By: Maria T García on 29-47-2020Dkmnlcwjt (Bld) [#/Vol]0.7 10*3/uL0.0-0.8[facility] HospitalMonocytes/100 WBC Auto (Bld)Ordered By: Maria T García on 09-04-2022 Monocytes/100 WBC (Bld)9.6 %.[facility] HospitalNeutrophils Auto (Bld) [#/Vol]Ordered By: Maria T García on 90-76-5852Xwisxquvgky (Bld) [#/Vol]5.2 10*3/uL1.8-7.7FSt. Francis HospitalNeutrophils/100 WBC Auto (Bld) Ordered By: Maria T García on 13-22-1902Rhmuuekhbqh/100 WBC (Bld)73.7 %.[facility] HospitalNo Panel InformationOrdered By: Maria T García on 28-66-2696Wwtholuku GFR ()> 60 mL/MinDelaware County HospitalComment on above:GFR estimated reference range: According to KDOQI guidelines, <60 ml/min/1.73m2 is sufficient todiagnose a patient with chronic kidney disease.Pharmacy Creatinine Clearance (Chem72.58[facility] HospitalNucleated erythrocytes [Presence] in Blood by Automated count Ordered By: Maria T García on 13-89-7632Zgilaheri RBC Auto Ql (Bld)0.1 /100{WBC} 0-0.5FSt. Francis HospitalPlatelet mean volume Auto (Bld) [Entitic vol]Ordered By: Maria T García on 26-26-7135Mknwlumc mean volume (Bld) [Entitic vol]9.0 fL6.6-10.1FSt. Francis HospitalPlatelets Auto (Bld) [#/Vol] Ordered By: Maria T García on 03-23-8391Xagevxqsd (Bld) [#/Vol]195 10*3/kD511-093 [facility] HospitalProtein [Mass/volume] in Serum or PlasmaOrdered By: Maria T García on 30-78-6817Kylfxjt [Mass/Vol]6.4 g/dL6.1-7.9[facility] HospitalRBC Auto (Bld) [#/Vol]Ordered By: Maria T García on 55-24-1484VBJ (Bld) [#/Vol]4.44 10*6/uL3.90-5.60[facility] Hospitalerum or plasma alanine aminotransferase measurement without P-5'-P (enzymatic activiOrdered By: Maria T García on 56-09-0066WNS No additional P-5'-P [Catalytic activity/Vol]21 U/Z30-43OqczffjgyPike Community Hospitalerum or plasma albumin/globulin mass ratioOrdered By: Maria T García on 09-04-2022 Albumin/Globulin [Mass ratio]1.5 {ratio}[facility] Hospitalerum or plasma anion gap determinationOrdered By: Maria T García on 23-21-1536Sxyxt gap [Moles/Vol]12.0 mmol/L6.0-15.0[facility] Hospitalerum or plasma chloride measurement (moles/volume)Ordered By: Maria T García on 10-13-1319Ualowwcr [Moles/Vol]105 mmol/G22-186EkrmtjqsmDelaware County Hospital Serum or plasma glucose measurement (mass/volume)Ordered By: Maria T García on 08-78-9477Efqosrx [Mass/Vol]120 mg/dI78-819LalnxiallDelaware County Hospital Comment on above:ADA recommended reference rangeRandom Glucose Reference Range is dependent on time and content of last meal. Glucose of more than 200 mg/dL in a nonstressed, ambulatory subject supports the diagnosisof Diabetes Mellitus. Serum or plasma potassium measurement (moles/volume)Ordered By: Maria T García on 84-85-2104Guxckyaxc [Moles/Vol]4.5 mmol/L3.5-5.1FSuburban Community Hospital & Brentwood Hospitalerum or plasma sodium measurement (moles/volume)Ordered By: Maria T García on 61-30-1030Docslk [Moles/Vol]138 mmol/V476-158GvzakqkgcPike Community Hospitalerum or plasma total bilirubin measurement (mass/volume)Ordered By: Maria T García on 83-70-8235Hmkwyxayk [Mass/Vol]0.8 mg/dL0.3-1.2FSt. Francis HospitalUrea nitrogen [Mass/volume] in Serum or PlasmaOrdered By: Maria T García on 55-12-1340Vpki nitrogen [Mass/Vol]20 mg/dL9-23Del[facility] HospitalWBC Auto (Bld) [#/Vol]Ordered By: Maria T García on 04-70-2326OOV (Bld) [#/Vol]7.1 10*3/uL4.1-10.5FSt. Francis HospitalPSA, FREE AND TOTAL RATIOon 05-16-2022% Free PSA16.0 %NormalThe [facility] Medical CenterComment on above:Result Comment: The table below lists the probability [...] free PSA for any other population of men.Performed By: #### PSAFREE #### [facility] [address] [place] [address] Dr. Prem LyonProstate specific Ag [Mass/Vol]3.5 ng/mLNormal0.0-4.0The [facility] CenterComment on above:Result Comment: Annabelle ECLIA methodology. . According to the [place] [employer], Serum PSA should decrease and [...] of the presence or absence of malignant disease.Performed By: #### PSAFREE #### [facility] [address] [address] [address] Prem Ferreira, Free0.56 ng/mLNormalN/AThe [facility] CenterComment on above:Result Comment: Annabelle ECLIA methodology.Performed By: #### PSAFREE #### [facility] [address] [place] [address] Dr. Prem Corona 30-75-8078Msfyszgywmj peptide B (Bld) [Mass/Vol]71.0 pg/mL Normal<=900.0The [facility] CenterComment on above:Performed By: #### BNP, T7, CMP, LIPID, TSH, URIC ####[facility] [address] [address]Dr. Prem Mendiola AUTO DIFFon 59-40-1306XFKX #0.0 103/ul Normal0.0-0.1German HospitalComment on above:Performed By: #### CBC #### [facility] [address] [place] [address] Dr. Prem LyonBasophils/100 WBC (Bld)0.5 %Normal0.2-2.0The [facility] Comment on above:Performed By: #### CBC #### [facility] [address] [place] [address] Dr. Prem Menchaca #0.2 103/ulNormal0.0-0.7The [facility] CenterComment on above: Performed By: #### CBC #### [facility] [address] [place] [address] Dr. Prem Dyerosinophils/100 WBC (Bld)3.3 %Normal0.9-7.0The [facility] Comment on above:Performed By: #### CBC #### [facility] [address] [place] [address] Dr. Prem Dyerrythrocyte distribution width (RBC) [Ratio]12.8 %Bknmha52.0-15.0 The [facility] CenterComment on above:Performed By: #### CBC #### [facility] [address] [place] [address] Dr. Prem LyonHematocrit (Bld) [Volume fraction]42.4 %Obypki65.0-54.0The [facility] HospitalComment on above:Performed By: #### CBC #### [facility] [address] [place] [address] Dr. Prem LyonHemoglobin (Bld) [Mass/Vol]13.6 g/dLCritically low14.0-18.0The [facility] CenterComment on above:Performed By: #### CBC #### [facility] [address] [place] [address] Dr. Prem Red #0.02 10e3/ulNormal0.00-0.03The [facility] CenterComment on above:Performed By: #### CBC #### [facility] [address] [place] [address] Dr. Prem Red %0.3 %Normal0.0-0.5The [facility] CenterComment on above: Performed By: #### CBC #### [facility] [address] [place] [address] Dr. Prem TaylorH #0.8 103/ulCritically low1.2-3.8The [facility] Comment on above:Performed By: #### CBC #### [facility] [address] [place] [address] Dr. Prem Sosamphocytes/100 WBC (Bld)14.0 %Critically low20.5-60.0The [facility] Medical CenterComment on above:Performed By: #### CBC #### [facility] [address] [place] [address] Dr. Prem LernerUAL DIFF REQNONormalThe [facility] CenterComment on above: Performed By: #### CBC #### [facility] [address] [address] [address] Prem Ferguson (RBC) [Entitic mass]30.2 ukJukohi14.9-34.0The [facility] CenterComment on above:Performed By: #### CBC #### [facility] [address] [address] [address] Prem Ferguson (RBC) [Mass/Vol]32.1 g/cYAqkxzb65.9-35.2The [facility] HospitalComment on above:Performed By: #### CBC #### [facility] [address] [address] [address] Prem Ferguson (RBC) [Entitic vol]94.2 fLCritically high80.0-94.0The [facility] CenterComment on above:Performed By: #### CBC #### [facility] [address] [place] [address] Dr. Prem Diaz #0.6 103/ulNormal0.3-0.8The [facility] CenterComment on above:Performed By: #### CBC #### [facility] [address] [place] [address] Dr. Prem Onealocytes/100 WBC (Bld)10.8 %Normal1.7-12.0The [facility] Comment on above:Performed By: #### CBC #### [facility] [address] [address] [address] Prem Villar #4.2 103/ulNormal1.4-6.5The [facility] CenterComment on above:Performed By: #### CBC #### [facility] [address] [address] [address] Prem Vicenteutrophils/100 WBC (Bld)71.1 %Nwfxkt50.0-75.0The [facility] CenterComment on above:Performed By: #### CBC #### [facility] [address] [place] [address] Dr. Prem Ungerlet mean volume (Bld) [Entitic vol]10.0 fLNormal9.5-13.5The [facility] CenterComment on above:Performed By: #### CBC #### [facility] [address] [address] [address] Prem LyonPLT198 103/xvAckbym551-024Txj [facility] CenterComtrinity health [place] on above: Performed By: #### CBC #### [facility] [address] [address] [address] Prem LyonRBC4.50 106/ulCritically low4.70-6.10The [facility] CenterComment on above:Performed By: #### CBC #### [facility] [address] [address] [address] Prem LyonWBC5.8 103/ulNormal4.0-11.0The [facility] CenterComment on above: Performed By: #### CBC #### [facility] [address] [address] [address] Prem Madden THYROXINE INDEX T7on 67-71-9621BJQ4.58Qkyocv9.30-4.50[facility] on above:Performed By: #### BNP, T7, CMP, LIPID, TSH, URIC ####[facility] [address] [address]DrNavid LyonT3U34.0 %Zigaam55.0-40.0The [facility] CenterComtrinity health [place] on above:Performed By: #### BNP, T7, CMP, LIPID, TSH, URIC ####[facility] [address] [address]Dr. Prem LyonT4 [Mass/Vol] 7.80 ug/dLNormal4.50-12.10The [facility] CenterComment on above:Performed By: #### BNP, T7, CMP, LIPID, TSH, URIC ####[facility] [address] [address]Dr. Prem LyonGLYCOHEMOGLOBIN A1Con 05-14-2022 ADA RECOMMENDATIONSEE BELOWNoalThGenesis HospitalComment on above:Result Comment: ADA RECOMMENDED LIMIT 4.0 - 6.0 ADA THERAPEUTIC TARGET < 7.0 ACTION SUGGESTED > 7.0Performed By: #### A1C #### [facility] [address] [address] [address] Prem LyonGlucose [Mass/Vol]140 mg/dLLouis Stokes Cleveland VA Medical CenterComtrinity health [place] on above:Performed By: #### A1C #### [facility] [address] [address] [address] Prem LyonHbA1c (Bld) [Mass fraction]6.5 %Critically high4.5-6.2German HospitalComment on above:Performed By: #### A1C #### [facility] [address] [address] [address] Prem LyonLIPID PROFILEon 41-15-6082MQMX-HDL RATIO NORMSSt. Mary's Medical CenterComment on above:Result Comment: 3.3 - 4.4 LOW RISK 4.4 - 7.1 AVERAGE RISK 7.1 - 11.0 MODERATE RISK >11.0 HIGH RISKPerformed By: #### BNP, T7, CMP, LIPID, TSH, URIC ####[facility] [address] [address]Dr. Prem LyonCholesterol [Mass/Vol]191 mg/dLNormal<=200 The [facility] CenterComtrinity health [place] on above:Performed By: #### BNP, T7, CMP, LIPID, TSH, URIC ####[facility] [address] [address]Dr. Prem ChangCholesterol in HDL [Mass/Vol]43 mg/rJQnvbmn14-43Jtg [facility] on above:Performed By: #### BNP, T7, CMP, LIPID, TSH, URIC ####[facility] [address] [address]Dr. Prem ChangCholesterol in LDL [Mass/Vol]103.0 mg/dLLouis Stokes Cleveland VA Medical Center Comment on above:Performed By: #### BNP, T7, CMP, LIPID, TSH, URIC ####[facility] [address] [address]DrNavid Lyon Cholesterol.total/Cholesterol in HDL [Mass ratio]4.4 {ratio}NormalThe [facility] Medical CenterComment on above:Performed By: #### BNP, T7, CMP, LIPID, TSH, URIC ####[facility] [address] [address]Dr. Prem LyonHDL NORMAL> or = 60 mg/dl - LOW CARDIOVASCULAR RISK <40 mg/dl - HIGH CARDIOVASCULAR RISKLouis Stokes Cleveland VA Medical CenterComment on above:Performed By: #### BNP, T7, CMP, LIPID, TSH, URIC ####[facility] [address] [address]Dr. Prem ChangLDL CALC NORMALSEE BELOWLouis Stokes Cleveland VA Medical CenterComment on above:Result Comment: <100 mg/dl OPTIMAL 100 - 129 mg/dl NEAR OR ABOVE OPTIMAL 130 - 159 mg/dl BORDERLINE HIGH 160 - 189 mg/dl HIGH >190 mg/dl VERY HIGHPerformed By: #### BNP, T7, CMP, LIPID, TSH, URIC ####[facility] [address] [address]Dr. Prem LyonTriglyceride [Mass/Vol]225 mg/dLCritically high<=150The [facility] CenterComment on above:Performed By: #### BNP, T7, CMP, LIPID, TSH, URIC ####[facility] [address] [address]Dr. Prem ChangVLDL CALC45.0 mg/dLLouis Stokes Cleveland VA Medical CenterComment on above: Performed By: #### BNP, T7, CMP, LIPID, TSH, URIC ####[facility] [address] [address]Dr. Prem LyonPROF 14(COMP METB)on 96-70-3020Uprtoml [Mass/Vol]3.7 g/dLNormal3.4-5.0The [facility] Comment on above:Performed By: #### BNP, T7, CMP, LIPID, TSH, URIC #### [facility] [address] [address] [address] Prem LyonAlbumin/Globulin [Mass ratio]1.0 {ratio}NormalThe [facility] HospitalComment on above:Performed By: #### BNP, T7, CMP, LIPID, TSH, URIC #### [facility] [address] [place] [address] Dr. Prem Aguillon [Catalytic activity/Vol]72 U/NVfslyx00-753Jga [facility] on above:Performed By: #### BNP, T7, CMP, LIPID, TSH, URIC #### [facility] [facility] [address] [place] [address] Dr. Prem Mills [Catalytic activity/Vol]44 U/WGldbrk82-02Gdf [facility] on above:Performed By: #### BNP, T7, CMP, LIPID, TSH, URIC #### [facility] [address] [place] [address] Dr. Prem Mayorga gap [Moles/Vol]11.0 mmol/LNormalGerman [facility] Comment on above:Performed By: #### BNP, T7, CMP, LIPID, TSH, URIC #### [facility] [address] [place] [address] Dr. Prem Wolf [Catalytic activity/Vol]27 U/MAnduzn77-47Zww [facility] on above:Performed By: #### BNP, T7, CMP, LIPID, TSH, URIC #### [facility] [address] [place] [address] Dr. Prem LyonBilirubin [Mass/Vol]0.5 mg/dLNormal0.2-1.0[facility] Comment on above:Performed By: #### BNP, T7, CMP, LIPID, TSH, URIC #### [facility] [address] [place] [address] Dr. Prem yLonCalcium [Mass/Vol]9.5 mg/dLNormal8.5-10.1[facility] Comment on above:Performed By: #### BNP, T7, CMP, LIPID, TSH, URIC #### [facility] [address] [place] [address] Dr. Prem LyonChloride [Moles/Vol]103 mmol/CMftmze01-959Wyz [facility] Comment on above:Performed By: #### BNP, T7, CMP, LIPID, TSH, URIC #### [facility] [address] [place] [address] Dr. Prem LyonCO2 [Moles/Vol]29.4 mmol/UBhnpuk82.0-32.0The [facility] Comment on above:Performed By: #### BNP, T7, CMP, LIPID, TSH, URIC #### [facility] [address] [place] [address] Dr. Prem LyonCreatinine [Mass/Vol]1.10 mg/dLNormal0.70-1.30The [facility] CenterComment on above:Performed By: #### BNP, T7, CMP, LIPID, TSH, URIC #### [facility] [address] [place] [address] Dr. Prem DyerGFR-AF SENEGALESE>60Normal>=60The [facility] CenterComment on above:Performed By: #### BNP, T7, CMP, LIPID, TSH, URIC #### [facility] [address] [place] [address] Dr. Prem DyerGFR-NON AF SENEGALESE>60Normal>=60The [facility] CenterComment on above:Performed By: #### BNP, T7, CMP, LIPID, TSH, URIC #### [facility] [address] [place] [address] Dr. Prem LyonGlobulin (S) [Mass/Vol]3.7 g/dLNormalThe [facility] CenterComment on above:Performed By: #### BNP, T7, CMP, LIPID, TSH, URIC #### [facility] [address] [place] [address] Dr. Prem LyonGlucose [Mass/Vol]137 mg/dLCritically oefw03-390Epk [facility] CenterComment on above:Performed By: #### BNP, T7, CMP, LIPID, TSH, URIC #### [facility] [address] [place] [address] Dr. Prem LyonPotassium [Moles/Vol]4.4 mmol/LNormal3.5-5.1The [facility] Comment on above:Performed By: #### BNP, T7, CMP, LIPID, TSH, URIC #### [facility] [address] [place] [address] Dr. Prem LyonProtein [Mass/Vol]7.4 g/dLNormal6.4-8.2The [facility] Comment on above:Performed By: #### BNP, T7, CMP, LIPID, TSH, URIC #### [facility] [address] [place] [address] Dr. Prem LyonSodium [Moles/Vol]139 mmol/VMjcdgr308-578Xad [facility] Comment on above:Performed By: #### BNP, T7, CMP, LIPID, TSH, URIC #### [facility] [address] [place] [address] Dr. Prem LyonUrea nitrogen [Mass/Vol]13.0 mg/dLNormal7.0-18.0The [facility] CenterComment on above:Performed By: #### BNP, T7, CMP, LIPID, TSH, URIC #### [facility] [address] [place] [address] Dr. Prem Amaya nitrogen/Creatinine [Mass ratio]11.8 mg/mgNormalThe [facility] CenterComment on above:Performed By: #### BNP, T7, CMP, LIPID, TSH, URIC #### [facility] [address] [place] [address] Dr. Prem Cabrera 06-06-0212PJN7.083 uIU/mLNormal0.358-3.740The [facility] CenterComment on above:Performed By: #### BNP, T7, CMP, LIPID, TSH, URIC #### [facility] [address] [place] [address] Dr. Prem LyonURIC ACID SERUMon 54-92-2120Gzhdx [Mass/Vol]5.8 mg/dLNormal 3.5-7.2The [facility] CenterComment on above:Performed By: #### BNP, T7, CMP, LIPID, TSH, URIC #### [facility] [address] [place] [address] Dr. Prem LyonBasophils Auto (Bld) [#/Vol]Ordered By: John Morris on 39-78-1249Apbkbgleg (Bld) [#/Vol]0.0 10*3/uL0.0-0.2FSt. Francis HospitalBasophils/100 WBC Auto (Bld)Ordered By: John Morris on 12-25-2021 Basophils/100 WBC (Bld)0.7 %.[facility] HospitalBlood hemoglobin measurement (mass/volume)Ordered By: John Morris on 60-99-2298Idmzxliyoe (Bld) [Mass/Vol]13.6 g/dL13.0-17.0[facility] HospitalBlood leukocytes automated count (number/volume)Ordered By: John Morris on 35-32-8980PBO (Bld) [#/Vol]4.4 10*3/uL4.5-11.0[facility] Body fluid albumin measurement (mass/volume)Ordered By: John Morris on 31-27-5143Amajeth (Body fld) [Mass/Vol]3.8 g/dL3.2-5.5FSt. Francis HospitalCreatinine and Glomerular filtration rate.predicted panel (S/P/Bld) Ordered By: John Morris on 78-35-5448Jejjnkohfz [Mass/Vol]1.00 mg/dL 0.64-1.27[facility] HospitalEosinophils Auto (Bld) [#/Vol]Ordered By: John Morris on 32-85-4728Txadeutpvgh (Bld) [#/Vol]0.1 10*3/uL0.0-0.45 [facility] HospitalEosinophils/100 WBC Auto (Bld)Ordered By: John Morris on 16-03-8709Bprlajadxjx/100 WBC (Bld)3.2 %.[facility] HospitalErythrocyte distribution width Auto (RBC) [Ratio]Ordered By: John Morris on 47-64-1781Xexibzuiasz distribution width (RBC) [Ratio] 14.2 %12.0-14.8[facility] HospitalEstimated glomerular filtration rate (GFR) non- AmericanOrdered By: John Morris on 12-25-2021 GFR/1.73 sq M.predicted among non-blacks MDRD (S/P/Bld) [Vol rate/Area]> 60 mL/MinDelaware County HospitalGlobulin Calc (S) [Mass/Vol]Ordered By: John Morris on 45-01-7287Zomipakq (S) [Mass/Vol]3.1 g/dLDelaware County HospitalHematocrit Auto (Bld) [Volume fraction]Ordered By: John Morris on 04-52-5327Gnpzupoqpi (Bld) [Volume fraction]40.6 % 38.8-50.0[facility] HospitalLaboratory - Hematology and Cell countsOrdered By: John Morris on 27-42-1260Ixucsgeqk RBC/100 WBC (Bld) [Ratio]0.0 %0-0.5FSt. Francis HospitalLymphocytes Auto (Bld) [#/Vol] Ordered By: John Morris on 22-57-1629Vunmzsdqyko (Bld) [#/Vol]0.6 10*3/uL 1.00-4.8[facility] HospitalLymphocytes/100 WBC Auto (Bld)Ordered By: John Morris on 37-96-6849Ttcnfabdkjr/100 WBC (Bld)13.2 %.[facility] HospitalH Auto (RBC) [Entitic mass]Ordered By: John Morris on 67-02-6148IHL (RBC) [Entitic mass]33.2 pg27.5-35.2FSt. Francis HospitalMCHC Auto (RBC) [Mass/Vol]Ordered By: John Morris on 67-81-3941FQZD (RBC) [Mass/Vol]33.6 g/dL32.5-35.6FSt. Francis HospitalMCV Auto (RBC) [Entitic vol]Ordered By: John Morris on 12-25-2021 MCV (RBC) [Entitic vol]98.9 fL83.5-101Del[facility] HospitalMonocytes Auto (Bld) [#/Vol]Ordered By: John Morris on 88-16-1185Jbyujaszn (Bld) [#/Vol]0.6 10*3/uL0.0-0.8[facility] HospitalMonocytes/100 WBC Auto (Bld)Ordered By: John Morris on 43-78-3070Vuyqsbvpc/100 WBC (Bld)13.3 %. [facility] HospitalNeutrophils Auto (Bld) [#/Vol]Ordered By: John Morris on 60-04-7842Djxedhdwydp (Bld) [#/Vol]3.1 10*3/uL1.8-7.7 [facility] HospitalNeutrophils/100 WBC Auto (Bld)Ordered By: John Morris on 95-54-1149Gnebnsihozl/100 WBC (Bld)69.6 %.[facility] HospitalNo Panel InformationOrdered By: John Morris on 00-47-3441Eewesbmnr GFR ()> 60 mL/MinDelaware County HospitalComment on above:GFR estimated reference range: According to KDOQI guidelines, <60 ml/min/1.73m2 is sufficient todiagnose a patient with chronic kidney disease.Pharmacy Creatinine Clearance (ChemN/[facility] HospitalPlatelet mean volume Auto (Bld) [Entitic vol]Ordered By: John Morris on 90-29-0713Lrujmlbw mean volume (Bld) [Entitic vol]9.0 fL6.6-10.1 [facility] HospitalPlatelets Auto (Bld) [#/Vol]Ordered By: John Morris on 31-97-3036Oknjwufcl (Bld) [#/Vol]184 10*3/lF051-172 [facility] HospitalProtein [Mass/volume] in Serum or PlasmaOrdered By: John Morris on 17-80-7104Rppjaxf [Mass/Vol]6.9 g/dL6.1-7.9[facility] HospitalRBC Auto (Bld) [#/Vol]Ordered By: John Morris on 35-38-0047FBM (Bld) [#/Vol]4.10 10*6/uL3.90-5.60[facility] Community Hospitalerum or plasma alanine aminotransferase measurement without P-5'-P (enzymatic activiOrdered By: John Morris on 31-60-8605HIN No additional P-5'-P [Catalytic activity/Vol]39 U/I61-61HujjpvlguPike Community Hospitalerum or plasma albumin/globulin mass ratioOrdered By: John Morris on 95-30-7913Vomdhtq/Globulin [Mass ratio]1.2 {ratio}[facility] Hospitalerum or plasma alkaline phosphatase measurement (enzymatic activity/volume)Ordered By: John Morris on 53-00-1029MPM [Catalytic activity/Vol]57 U/Q01-66VkctmwwixPike Community Hospitalerum or plasma aspartate aminotransferase measurement (enzymatic activity/volume)Ordered By: John Morris on 35-46-0647ZLN [Catalytic activity/Vol]39 U/B67-01AtmmrwxxnPike Community Hospitalerum or plasma calcium measurement (mass/volume)Ordered By: John Morris on 21-09-6389Sjjqyfm [Mass/Vol]9.8 mg/dL8.2-10.2FSuburban Community Hospital & Brentwood Hospitalerum or plasma chloride measurement (moles/volume) Ordered By: John Morris on 40-96-2176Vwazaswn [Moles/Vol]106 mmol/L95-114 [facility] Hospitalerum or plasma glucose measurement (mass/volume)Ordered By: John Morris on 49-72-0006Cnacrwb [Mass/Vol]120 mg/xA55-169YnvxwgcwyDelaware County HospitalComment on above:ADA recommended reference range Random Glucose Reference Range is dependent on time and content of last meal. Glucose of more than 200 mg/dL in a nonstressed, ambulatory subject supports the diagnosis of Diabetes Mellitus.Serum or plasma potassium measurement (moles/volume)Ordered By: John Morris on 85-59-8252Ghpldpmtm [Moles/Vol] 4.4 mmol/L3.5-5.1FSuburban Community Hospital & Brentwood Hospitalerum or plasma sodium measurement (moles/volume)Ordered By: John Morris on 39-51-1004Uhozeb [Moles/Vol]141 mmol/Z986-579DhsjkndopPike Community Hospitalerum or plasma total bilirubin measurement (mass/volume)Ordered By: John Morris 39-08-0402Gmthbmbeb [Mass/Vol]0.7 mg/dL0.3-1.2FSt. Francis Hospital Serum or plasma total carbon dioxide measurement (moles/volume)Ordered By: John Morris on 79-55-3163OT6 [Moles/Vol]23.3 mmol/L22.0-30.0Pike Community Hospitalerum or plasma urea nitrogen measurement (mass/volume) Ordered By: John Morris on 64-42-8067Wgsf nitrogen [Mass/Vol]20 mg/dL9-23 [facility] HospitalComprehensive Metabolic Panelon 08-16-2021 Albumin [Mass/Vol]3.7 g/dL3.2-5.5Nosaint [facility]oseph [facility] center [facility] Other albumin/Globulin [Mass ratio]1.4 {ratio}[place] [employer] Other aLP [Catalytic activity/Vol]46 U/G71-38Uxzlo [employer] Other aLT [Catalytic activity/Vol]49 U/T76-31Emada [employer] Other aST [Catalytic activity/Vol]32 U/H33-84Mxwjc [employer] Other bilirubin [Mass/Vol]0.9 mg/dL0.3-1.2[facility] Other Calcium [Mass/Vol]9.9 mg/dL8.2-10.2[facility] Other Chloride [Moles/Vol]104 mmol/Y25-448Ropot [employer] Other CO2 [Moles/Vol]25.2 mmol/L22.0-30.0Nosaint joseph health center [facility] Other Creatinine [Mass/Vol]1.06 mg/dL0.64-1.27Nosaint joseph health center [facility] Other Glucose [Mass/Vol]100 mg/vH93-001Uuacd [employer] Other Potassium [Moles/Vol]4.7 mmol/L3.5-5.1[facility] [employer] Other Protein [Mass/Vol]6.4 g/dL6.1-7.9Nort [facility] Other Sodium [Moles/Vol]140 mmol/W530-446Niuxi [employer] Other Urea nitrogen [Mass/Vol]19 mg/dL9-23Nosaint joseph health center [facility] Other Comprehensive Metabolic Panel> 60Nort [facility] Other Comprehensive Metabolic Panel2.7Nort [facility] Other Laboratory - Hematology and Cell countsOrdered By: Chana Matthews on 06-86-4505Onlsppbos RBC/100 WBC (Bld) [Ratio]0.1 %0-0.5FSt. Francis HospitalPSA SCREENING LABCORPon 96-39-1185Emizyuuw specific Ag [Mass/Vol]3.8 ng/mLNormal0.0-4.0The [facility] CenterComment on above:Result Comment: Annabelle ECLIA methodology. . According to the [place] [employer], Serum PSA should decrease and [...] of the presence or absence of malignant disease.Performed By: #### PSASCLC #### [facility] [address] [address] [address] Prem LyonXR KUB 1 VIEWon 35-19-9641HR KUB 1 VIEWEXAMINATION: XR KUB 1 VIEW HISTORY: Kidney stone [...] Electronically authenticated by: NATHALIA GATES Date: 2021-07-03 12:59[facility] CenterCOVID-19 SOFIAon 63-46-6855FKAS-CoV+SARS-CoV-2 (COVID-19) Ag IA.rapid Ql (Resp)NegativeNegativeJoint Township District Memorial Hospital CtrComment on above:This is a duplicate Janette SARS Antigen (KEELY) result to be used for statistical tracking purpose only.No Panel Informationon 25-11-6226KMXT Antigen (LFIA)[facility] CtrBasophils Auto (Bld) [#/Vol]on 08-12-2020 Basophils (Bld) [#/Vol]0.0 10*3/uL0.0-0.2FSelect Medical [facility] Ctr Basophils/100 WBC Auto (Bld)on 91-18-4794Gtrupxyyh/100 WBC (Bld)0.9 %[facility] CtrBlood hemoglobin measurement (mass/volume)on 08-12-2020 Hemoglobin (Bld) [Mass/Vol]13.5 g/dL13.0-17.0[facility] CtrBlood leukocytes automated count (number/volume)on 66-21-6695IRQ (Bld) [#/Vol]3.9 10*3/uL4.5-11.0[facility] CtrEosinophils Auto (Bld) [#/Vol]on 03-60-2702Wdgbklqweoy (Bld) [#/Vol]0.1 10*3/uL0.0-0.45[facility] CtrEosinophils/100 WBC Auto (Bld)on 94-71-5719Vtiihcnyyay/100 WBC (Bld)3.3 % [facility] CtrErythrocyte distribution width Auto (RBC) [Ratio] on 17-50-7888Cykvjpsjypg distribution width (RBC) [Ratio]15.3 %12.0-14.8 [facility] CtrHematocrit Auto (Bld) [Volume fraction]on 24-08-5832Ftobakclzr (Bld) [Volume fraction]40.5 %38.8-50.0[facility] CtrLaboratory - Hematology and Cell countson 67-87-2024Dflinfhft RBC/100 WBC (Bld) [Ratio]0.1 %0-0.5FSelect Medical [facility], [facility] CtrLymphocytes Auto (Bld) [#/Vol]on 95-74-2802Tmbyklketle (Bld) [#/Vol]0.3 10*3/uL1.00-4.8[facility] CtrLymphocytes/100 WBC Auto (Bld)on 91-71-2383Lgujjipycja/100 WBC (Bld)9.0 %[facility] HospitalMCH Auto (RBC) [Entitic mass]on 72-67-5738RDK (RBC) [Entitic mass]33.7 pg27.5-35.2FAshtabula County Medical Center MCHC Auto (RBC) [Mass/Vol]on 46-43-8385ETBS (RBC) [Mass/Vol]33.3 g/dL32.5-35.6 [facility] HospitalMCV Auto (RBC) [Entitic vol]on 96-91-4919CIW (RBC) [Entitic vol]101.3 fL83.5-101[facility] CtrMonocytes Auto (Bld) [#/Vol]on 65-97-7033Ikdcryxfr (Bld) [#/Vol]0.3 10*3/uL0.0-0.8[facility] CtrMonocytes/100 WBC Auto (Bld)on 84-94-0380Imfuvcpwz/100 WBC (Bld)8.7 % [facility] CtrNeutrophils Auto (Bld) [#/Vol]on 08-12-2020 Neutrophils (Bld) [#/Vol]3.0 10*3/uL1.8-7.7FSelect Medical [facility] Ctr Neutrophils/100 WBC Auto (Bld)on 63-66-5196Ucuxqrhkzgh/100 WBC (Bld)78.1 % [facility] CtrPlatelet mean volume Auto (Bld) [Entitic vol]on 83-58-1149Krpxress mean volume (Bld) [Entitic vol]8.8 fL6.6-10.1[facility] CtrPlatelets Auto (Bld) [#/Vol]on 23-30-4745Xmsbgmgnl (Bld) [#/Vol]222 10*3/rI094-111WwcemtjjzJoint Township District Memorial Hospital CtrRBC Auto (Bld) [#/Vol]on 08-13-2382EGC (Bld) [#/Vol]4.00 10*6/uL3.90-5.60[facility] CtrCT biopsyon 58-51-6437Dloqqmbqfiz [Mass/Vol]259 mg/fG269-024SpwtkhkcrJoint Township District Memorial Hospital CtrFerritin [Mass/volume] in Serum or Plasmaon 76-06-0156Rjympjld [Mass/Vol]125.1 ng/mL23.9-336.2FSelect Medical [facility] CtrFolate [Mass/volume] in Serum or Plasmaon 20-88-5223Crzyct [Mass/Vol]6.6 ng/mLJoint Township District Memorial Hospital CtrComment on above:Folate reference range: >5.9 ng/mlThe WHO technical consultation on folate and vitamin v98sngifzfklicl has determined that folate concentrations lessthan 4 ng/ml are considered deficient.Iron [Mass/volume] in Serum or Plasmaon 43-18-4350Ymvb [Mass/Vol]96 ug/mA30-905 [facility] CtrIron binding capacity [Mass/volume] in Serum or Plasmaon 83-51-1273Bupv binding capacity [Mass/Vol]363 ug/qP621-655QitjpmxpgJoint Township District Memorial Hospital CtrIron saturation [Mass Fraction] in Serum or Plasmaon 53-15-2881Brri saturation [Mass fraction]26.0 %20-50[facility] CtrLaboratory - Chemistry and Chemistry - challengeon 59-78-6497Prusvmvop (Vitamin B12) [Mass/Vol]2558 pg/lF218-783OtxhautpqJoint Township District Memorial Hospital Ctr Laboratory - Hematology and Cell countson 64-84-8045XIO (Bld) [#/Vol]4.0 10*3/uL 4.5-11.0[facility] CenterBody fluid albumin measurement (mass/volume)on 94-82-0125Zwvyqjz (Body fld) [Mass/Vol]3.8 g/dL3.2-5.5FSelect Medical [facility], [facility] CtrCreatinine and Glomerular filtration rate.predicted panel (S/P/Bld)on 58-92-7818Rleqieeiui [Mass/Vol]1.15 mg/dL0.64-1.27[facility] CtrEstimated glomerular filtration rate (GFR) non- Americanon 97-89-6068TIE/1.73 sq M.predicted among non-blacks MDRD (S/P/Bld) [Vol rate/Area]mL/min/{1.73_m2}[facility] CtrGlobulin Calc (S) [Mass/Vol]on 45-30-1119Hpnxedbe (S) [Mass/Vol]2.7 g/dLJoint Township District Memorial Hospital CtrHaptoglobin [Mass/volume] in Serum or Plasmaon 72-41-5890Fnltheojzns [Mass/Vol]178 mg/sZ04-582ObniwylfnDelaware County HospitalLaboratory - Chemistry and Chemistry - challengeon 09-09-1914ILR/1.73 sq M.predicted MDRD (S/P/Bld) [Vol rate/Area]mL/min/{1.73_m2}[facility] CtrComment on above: GFR estimated reference range: According to KDOQI guidelines, <60 ml/min/1.73m2 is sufficient todiagnose a patient with chronic kidney disease.Lactate dehydrogenase measurement (enzymatic activity/volume)on 69-13-0693TXN (Unsp spec) [Catalytic activity/Vol]177 U/S09-875RsiadveyiDelaware County HospitalNo Panel Informationon 20-12-1140Iwghfwpj Reticulocyte Count0.067 10*6/uL 0.024-0.084Del[facility] County HospitalPercent Reticulocyte Count1.8 % 0.5-1.5FSt. Francis HospitalPharmacy Creatinine Clearance (Chem 67.9366158214QacssmijcJoint Township District Memorial Hospital CtrProtein [Mass/volume] in Serum or Plasmaon 99-50-3539Vndgeog [Mass/Vol]6.5 g/dL6.1-7.9[facility] CtrSerum or plasma alanine aminotransferase measurement without P-5'-P (enzymatic activion 53-84-1237PAX No additional P-5'-P [Catalytic activity/Vol] 43 U/H33-42ZhfbdmtjdJoint Township District Memorial Hospital CtrSerum or plasma albumin/globulin mass ratioon 91-74-1208Suprsgx/Globulin [Mass ratio]1.4 {ratio}[facility] CtrSerum or plasma alkaline phosphatase measurement (enzymatic activity/volume)on 55-51-2587QQY [Catalytic activity/Vol]46 U/J55-43ZfvibfbmyJoint Township District Memorial Hospital CtrSerum or plasma aspartate aminotransferase measurement (enzymatic activity/volume)on 14-07-5138ODP [Catalytic activity/Vol]28 U/L10-42 [facility] CtrSerum or plasma calcium measurement (mass/volume) on 36-34-6572Zxlyfyr [Mass/Vol]9.7 mg/dL8.2-10.2FSelect Medical [facility] Ctr Serum or plasma chloride measurement (moles/volume)on 98-14-3121Xxirjsag [Moles/Vol]102 mmol/Z76-012FwkalrnogJoint Township District Memorial Hospital CtrSerum or plasma glucose measurement (mass/volume)on 12-25-5362Rddzyaz [Mass/Vol]120 mg/tK10-428 [facility] CtrComment on above:ADA recommended reference rangeRandom Glucose Reference Range is dependent on time and content of last meal. Glucose of more than 200 mg/dL in a nonstressed, ambulatory subject supports the diagnosisof Diabetes Mellitus.Serum or plasma potassium measurement (moles/volume)on 40-15-4821Grwgdqijd [Moles/Vol]4.4 mmol/L3.5-5.1FSelect Medical [facility] CtrSerum or plasma sodium measurement (moles/volume)on 86-72-8509Otxcvk [Moles/Vol]140 mmol/W695-359SjzphnuwjJoint Township District Memorial Hospital CtrSerum or plasma total bilirubin measurement (mass/volume)on 96-99-8702Rzyxecurr [Mass/Vol]0.5 mg/dL0.3-1.2FSelect Medical [facility] CtrSerum or plasma total carbon dioxide measurement (moles/volume)on 27-65-5783ZM1 [Moles/Vol]27.6 mmol/L 22.0-30.0[facility] CtrSerum or plasma urea nitrogen measurement (mass/volume)on 64-74-9779Cvhp nitrogen [Mass/Vol]15 mg/dL9-23[facility] CtrAlbumin [Mass/volume] in Serum or Plasmaon 40-07-9689Pcstyti [Mass/Vol]3.8 g/dL2.9-4.4FSt. Francis HospitalIgA [Mass/volume] in Serum or Plasmaon 74-16-6238HrA [Mass/Vol]310 mg/tI16-188DksiwuzsyDelaware County HospitalIgG [Mass/volume] in Serum or Plasmaon 14-32-1596CtI [Mass/Vol]818 mg/wN370-5838PhaazwxgzDelaware County HospitalIgM [Mass/volume] in Serum or Plasmaon 33-92-5577AgG [Mass/Vol]36 mg/cI97-654PnktismqfDelaware County Hospital Comment on above:Performed at: [facility]Hi[facility] [place] [address] [id number] Director: Mike Trinh PhD, Phone: [phone] light chains.kappa.free [Mass/volume] in Serumon 54-19-1534Uqkglmxfdnsyva light chains.kappa.free (S) [Mass/Vol]21.5 mg/L3.3-19.4FSt. Francis HospitalImmunoglobulin light chains.kappa.free/Immunoglobulin light chains.lambda.free [Wen 49-77-4456Bxbkpsknajyvlh light chains.kappa.free/Immunoglobulin light chains.lambda.free (S) [Mass ratio]1.30 0.26-1.65Del[facility] County HospitalComment on above:Performed at: [facility]Tr[facility] HospitalAejaxs[address] [place], [place] [id number] Director: Mike Trinh PhD, Phone: [phone] light chains.lambda.free [Mass/volume] in Serum or Plasmaon 61-01-5704Ziokteiamqdxda light chains.lambda.free [Mass/Vol]16.6 mg/L5.7-26.3FSt. Francis Hospital No Panel Informationon 58-57-0018XQQ Flow CytometrySee commentDelaware County HospitalComment on above:See report. Scanned copy available in EMR. Protein Electrophoresis M-SpikeNot observed g/dLNot ObservedDelaware County HospitalProtein Electrophoresis NoteSee comment.[facility] HospitalComment on above:Protein electrophoresis scan will follow via computer,mail, or make up girl delivery.Performed at: [facility]ticsTr[facility] HospitalDogjvi[address] [place], [place] [id number] Director: Mike Trinh PhD, Phone: [phone] Serum ImmunofixationSee comment.[facility] County HospitalComment on above:No monoclonality detected.Protein [Mass/volume] in Serum or Plasmaon 03-19-2720Rjedqms [Mass/Vol]7.2 g/dL6.0-8.5FSt. Francis Hospital Serum globulin measurement (mass/volume)on 25-75-5884Geicveua (S) [Mass/Vol]3.4 g/dL2.2-3.9[facility] Community Hospitalerum intrinsic factor blocking antibody detection by radioimmunoassay (RC)on 71-43-2579Uvgzazpvm factor blocking Ab RC Ql (S)0.9 AU/mL0.0-1.1FSt. Francis HospitalComment on above:Performed at: [employer] [id number] Director: Mary Torres MD, Phone: [phone] or plasma albumin/globulin mass ratioon 79-66-4237Lsogopr/Globulin [Mass ratio]1.1 {ratio} 0.7-1.7FSuburban Community Hospital & Brentwood Hospitalerum or plasma alpha 1 globulin measurement by electrophoresis (mass/volume)on 98-17-2679Ygdzf 1 globulin Elph [Mass/Vol]0.3 g/dL0.0-0.4FSuburban Community Hospital & Brentwood Hospitalerum or plasma alpha 2 globulin measurement by electrophoresis (mass/volume)on 04-61-8072Okfyx 2 globulin Elph [Mass/Vol]1.1 g/dL0.4-1.0[facility] Hospitalerum or plasma beta globulin measurement by electrophoresis (mass/volume)on 01-19-2019 Beta globulin Elph [Mass/Vol]1.3 g/dL0.7-1.3F[facility] Serum or plasma gamma globulin measurement by electrophoresis (mass/volume)on 26-48-1733Inedh globulin Elph [Mass/Vol]0.7 g/dL0.4-1.8[facility] Hospitalerum or plasma gastrin measurement (mass/volume)on 01-19-2019 Gastrin [Mass/Vol]285 pg/mL0-115Del[facility] County HospitalComment on above:Siemens WhatsOpenulite 2000 Immunochemiluminometric assay (ICMA)Values obtained with different assay methods or kits cannotbe used interchangeably. Results cannot be interpreted asabsolute evidence of the presence or absence of malignantdisease.Performed at: [facility] [address] [id number] Director: Mary Torres MD, Phone: [phone] parietal cell antibody assay (units/volume)on 35-31-2972Pneywven cell Ab Qn (S) 6.9 Units0.0-20.0Del[facility] County HospitalComment on above:Negative 0.0 - 20.0 Equivocal 20.1 - 24.9 Positive >24.9Parietal Cell Antibodies are found in 90% of patientswith pernicious anemia and 30% of first degreerelatives with pernicious anemia.Performed at: [facility] [address] [id number] Director: Mike Trinh PhD, Phone: [phone] Vital Signs Date TimeVital SignValuePerforming StaykhsaxMhqajcim00-85-5869 10:40-0400 Diastolic blood dgvritsa62 mm[Hg]MD Rafael Erazo Work Phone: [phone]09-19-2024 10:40-0400 Heart rate73 /minMD Rafael Erazo Work Phone: [phone]09-19-2024 10:40-0400 Respiratory rate16 /minMD Rafael Erazo Work Phone: [phone]09-19-2024 10:40-0400 SaO2% (BldA) [Mass fraction]99 %MD Rafael Erazo Work Phone: [phone]09-19-2024 10:40-0400 Systolic blood vhlpvlqe277 mm[Hg]MD Rafael Erazo Work Phone: [phone]09-19-2024 08:22-0400 Body gxdoeq815.88 cmMD Rafael Eraoz Work Phone: 1(065)[address]09-19-2024 08:22-0400 Body .18 kgMD Rafael Erazo Work Phone: [facility]08-22-2024 10:53-0400 Body .88 cmMD Rafael Hoy Work Phone: [phone])[address]08-22-2024 10:53-0400 Body mass index (BMI) [Ratio]25.6 kg/m2MD Rafael Hoy Work Phone: [facility]08-22-2024 10:53-0400 Body vuzzjo74.72 kgMD Rafael Hoy Work Phone: [phone])[facility]-[address] [place], [place] [address]12908-22-2024 10:53-0400 Diastolic blood eggadira07 mm[Hg]MD Rafael Erazo Work Phone: 1(151)503-[address] [place], [place] 8912908-22-2024 10:53-0400 Heart rate77 /minMD Rafael Hoy Work Phone: [phone]08-22-2024 10:53-0400 Systolic blood tygbqeli053 mm[Hg]MD Rafael Erazo Work Phone: 1(118)299-[address] [place], [place] 8912907-16-2024 09:27-0400 Blood Pressure LocationJENNIFER MARIE [facility]07-16-2024 09:27-0400Diastolic blood sechslhv13 mm[Hg]QUINTON MARIE [facility]07-16-2024 09:27-0400Heart rate73 /minJENNIFER MARIE [facility]07-16-2024 09:27-0400Respiratory rate16 /minJENNIFER MARIE [facility]07-16-2024 09:27-0400Systolic blood xhwcdirr595 mm[Hg]QUINTON MARIE [facility]07-05-2023 13:20-0400Blood Pressure LocationJENNIFER MARIE [facility]07-05-2023 13:20-0400Diastolic blood citfuurj60 mm[Hg]QUINTON MARIE [facility]07-05-2023 13:20-0400Heart rate68 /minJENNIFER MARIE [facility]07-05-2023 13:20-0400Respiratory rate16 /minJENNIFER MARIE [facility]07-05-2023 13:20-0400Systolic blood mhsqaqbg441 mm[Hg]QUINTON MARIE [facility]02-22-2023 09:46-0500Body hyggkwyicpo54 [degF]MD Rafael Erazo Work Phone: 1(251)122-[address] [place], [place] 8912902-22-2023 09:46-0500 Body .4 kgMD Rafael Erazo Work Phone: [phone])[address]02-22-2023 09:46-0500 Diastolic blood mm[Hg]MD Rafael Erazo Work Phone: [facility]02-22-2023 09:46-0500 Heart rate80 /minMD Rafael Erazo Work Phone: [facility]02-22-2023 09:46-0500 Respiratory rate16 /minMD Rafael Erazo Work Phone: 1(418)201-[address] [place], [place] 8912902-22-2023 09:46-0500 SaO2% (BldA) [Mass fraction]98 %MD Rafael Erazo Work Phone: [facility]02-22-2023 09:46-0500 Systolic blood escfdgwq413 mm[Hg]MD Rafael Erazo Work Phone: [facility]07-27-2022 11:30-0400 Body yohbow230.88 Megan Alex Other [facility] [employer] Other 07-27-2022 11:30-0400Body mass index (BMI) [Ratio] 24.95 kg/r9Uhpytoqs Alex Other [facility] [employer] Other 07-27-2022 11:30-0400Body keyzkr37.46 kgLatavares Morris Other [facility] [employer] Other 07-27-2022 11:30-0400Diastolic blood jseeubuc86 mm[Hg] John Morris Other [facility] [employer] Other 07-27-2022 11:30-0400Systolic blood sonhavlr565 mm[Hg] John Kennedyack Other [facility] [employer] Other 07-27-2022 10:22-0400Body weight0 kgMD Rafael Erazo Work Phone: [facility]06-21-2022 08:47-0400 Blood Pressure LocationGiovany Pak Jr. [facility] 06-21-2022 08:47-0400Diastolic blood yktelafg19 mm[Hg] Giovany Pak Jr. [facility] 06-21-2022 08:47-0400Heart rate74 /Alyssa Pak Jr. [facility] 06-21-2022 08:47-0400Respiratory rate16 /Alyssa Pak Jr. [facility] 06-21-2022 08:47-0400Systolic blood vvjwbqre037 mm[Hg] Giovany Pak Jr. [facility] 04-27-2022 11:15-0400Body ygxhbk676.88 Megan Morris Other [employer] Other 04-27-2022 11:15-0400Body mass index (BMI) [Ratio] 26.04 kg/m8Zyupvfxi Alex Other [employer] Other 04-27-2022 11:15-0400Body meaaaa80.09 kgLawralberto Alex Other [employer] Other 04-27-2022 11:15-0400Diastolic blood hdidaroo36 mm[Hg] John Morris Other [employer] Other 04-27-2022 11:15-0400Systolic blood isorbssb012 mm[Hg] John Morris Other [employer] Other 02-25-2022 11:30-0500Body eeqilj930.01 cmMD Rafael Erazo Work Phone: [facility]01-26-2022 10:15-0500 Body dmoufe227.88 Jimlilianajaimie Morris Other [employer] Other 01-26-2022 10:15-0500Body mass index (BMI) [Ratio] 26.17 kg/b8Stprwtzl Alex Other [facility] [employer] Other 01-26-2022 10:15-0500Body .54 kgLawrence Alex Other [facility] [employer] Other 12-07-2021 15:30-0500Body nddsep151.88 cmLawjaimie Morris Other [facility] [employer] Other 12-07-2021 15:30-0500Body mass index (BMI) [Ratio] 26.44 kg/j3Fehddegc Alex Other [employer] Other 12-07-2021 15:30-0500Body .45 kgLawralberto Morris Other [facility] [employer] Other 02-04-2021 09:02-0500Body jgsupz136.01 cmM Rafael Hoy Work Phone: [facility]02-04-2021 09:02-0500 Body fkzfeawwfub09.4 [degF]M Rafael Hoy Work Phone: [facility]02-04-2021 09:02-0500 Body .4 kgM Rafael Hoy Work Phone: [facility]02-04-2021 09:02-0500 Diastolic blood uenwkerc93 mm[Hg]M Rafael Hoy Work Phone: [facility]02-04-2021 09:02-0500 Heart kuxh109 /minM Rafael Hoy Work Phone: [facility]02-04-2021 09:02-0500 Respiratory rate20 /minM Rafael Hoy Work Phone: [facility]02-04-2021 09:02-0500 SaO2% (BldA) [Mass fraction]96 %Po Erazo Work Phone: [facility]02-04-2021 09:02-0500 Systolic blood bujkkivk790 mm[Hg]Po Erazo Work Phone: [facility] Encounters Encounter DateEncounter TypeCare ProviderFacilityStart: 69-23-2453hjxviljydt Vi X OrzechFacility:EU BellevueStart: 04-15-2024 End: 34-57-0748Aetyibu encounter procedureMD Rafael Hoy Work Phone: [facility] [place] Work Phone: Start: 04-15-2024 End: 84-13-7103mtetzjurvyIE Rafael M Hoy Work Phone: [facility] Work Phone: Start: 04-09-2024 End: 95-92-8599Sscnjcnvg to same day surgery centerMD Rafael Hoy Work Phone: [facility] [place] Work Phone: Start: 04-09-2024 End: 19-86-7241oukczulxkiMZ Rafael M Hoy Work Phone: [facility] Work Phone: Start: 03-12-2024 End: 75-06-0624onnqzhgersBI Rafael M Hoy Work Phone: [facility] Work Phone: Start: 03-12-2024 End: 43-84-4501Ihgrvex encounter procedureMD Rafael Hoy Work Phone: [facility] Gastroenterology Work Phone: Start: 02-04-2024 End: 75-10-1520Kzpxomb encounter procedureJENNIFER E MARIE [facility] start: 01-09-2024 End: 47-31-9083Ailayai encounter procedureMD Rafael Hoy Work Phone: [facility] Work Phone: Start: 01-09-2024 End: 60-26-3475hbhezyxajyMA Rafael M Hoy Work Phone: [facility] Work Phone: Start: 01-23-2023 End: 39-26-1947Kptmmly encounter procedureJERENETTA Salvador SALAZAR [facility] start: 12-03-2022 End: 87-09-2539zjbqugromsLU Rafael M Hoy Work Phone: [facility] Work Phone: Start: 12-03-2022 End: 86-54-2527Yuqdaqy encounter procedureMD Rafael Hoy Work Phone: [facility] [place] Work Phone: Start: 09-12-2022 End: 59-89-3284ldjjmdbpclVS Rafael M Hoy Work Phone: [facility] Work Phone: Start: 09-12-2022 End: 79-06-8971Jlpwwidcue RecurringMD Rafael Hoy Work Phone: [facility] Work Phone: Start: 05-25-2022 End: 34-09-0833unrtmthxymXP Rafael M Hoy Work Phone: [facility] Work Phone: Start: 05-25-2022 End: 44-74-1935Shofjpq encounter procedureMD Rafael Hoy Work Phone: [facility] [place] Start: 05-14-2022 End: 46-20-3229flrmmvdanlAU RAFAEL ERAZOFacility:T6Gmpse: 02-21-2022 End: 68-44-9643Rfzdsee encounter procedureMD Rafael Erazo Work Phone: [facility]-Digestive HealthStart: 02-14-2022 End: 81-05-7776cygfgnfhziKutwvvsl Alex Other [employer] Other Start: 77-55-8076Lzzlssm encounter procedureLawrence McCormAnkit GastroenterologyStart: 01-09-2022 End: 20-67-6784Exbsthe encounter procedureGiovany Pak Jr. [facility] start: 01-01-2022 End: 72-39-3177pnencvdxloRW GIOVANY PAK JRFacility:P2Wswog: 12-25-2021 End: 52-63-9125Oxldpei encounter procedureMD Rafael Erazo Work Phone: [facility] CampusStart: 11-15-2021 End: 90-23-6261ocnjwtnzzxCwkssdpw Alex Other [employer] Other Start: 52-05-5680Xphhvr outpatient visit 15 minutes [facility]astroenterologyStart: 08-16-2021 End: 32-07-3955kuwzpafwstOhgwkwdk Alex Other [employer] Other Start: 95-78-1610Jrcnaw outpatient visit 25 minutes [facility]astroenterologyStart: 07-03-2021 End: 62-32-6789nypxpddmorRS DOCTOR MISCFacility:X1Ipmta: 80-03-0400Lceysj outpatient visit 25 minutesLawrence CucaormdeborahFPG GastroenterologyStart: 06-27-2021 End: 04-54-4415xiifvayvbjTTSIOY JILLIAN GALEANO [employer] Other Start: 11-22-2020 End: 87-02-5447Ukubkyr encounter procedureM Rafael Erazo Work Phone: -Pre-Surgical TestingStart: 78-19-6591Bibbftemlb RecurringM Rafael Hoy Work Phone: [phone]-[facility]vuch CenterStart: 07-06-2020 End: 38-76-1657Rprbznf encounter procedureExternal ProviderAshtabula [facility] Start: 77-06-1174Ceutugz OnlyExternal ProviderExternal-NonCCF Procedures DateProcedureProcedure DetailPerforming ClinicianStart: 70-07-3541HG of small intestineMD Rafael Erazo Work Phone: [phone]: 62-56-8618Gsmvnvzdnc guidance for needle biopsy MD Rafael Erazo Work Phone: [phone]: 95-92-6336Yvynoldkkc elastography of liverMD Rafael Hoy Work Phone: [phone]: 07-06-2408Bafwsoixzpfapgs of liverMD Rafael Hoy Work Phone: Start: 93-98-7782GTW screeningDR RAFAEL HOYComment on above:Performed By: #### PSASC #### [facility] [address] [place] [address] Dr. Prem Coronelart: 37-46-7456EV Fibroscan (Not Applicable)MD Rafael Erazo Work Phone: Start: 09-91-7700XWJ screeningDR RAFAEL HOYComment on above:Performed By: #### PSAD #### [facility] [address] [place] [address] Dr. Prem Coronelart: 40-61-1515PQZM Antigen (LFIA)M Rafael Erazo Work Phone: Start: 11-93-5822WCKLQIXU IMAGINGExternal Provider Start: 01-60-0298Yiyyhkzlmtxqvhr by transrectal approachQUINTON SALAZAR US scan of prostate - transurethJael Pak Jr. Plan of Treatment DateCare ActivityDetailAuthorStart: 46-01-8363Volvh smooth muscle IgG Ab [Units/volume] in SerumPike Community Hospitaltart: 04-15-2024 Ceruloplasmin [Mass/volume] in Serum or PlasmaDelaware County Hospital Start: 09-27-0305Hnxecmnox A virus Ab [Presence] in Serum by Immunoassay [facility] Hospitaltart: 93-68-9570Nwjnysaei A virus antibody, IgM typePike Community Hospitaltart: 83-62-2728Slemmmbkd B core antibody measurementPike Community Hospitaltart: 94-64-8871Cuslbtwkb B core antibody measurement, IgM typePike Community Hospitaltart: 95-54-3684Zqbgupjzv B virus surface Ab [Presence] in SerumPike Community Hospitaltart: 26-84-4226EqF [Mass/volume] in Serum or PlasmaPike Community Hospitaltart: 47-00-4140Ggocoenhrcf a [Moles/volume] in Serum or PlasmaPike Community Hospitaltart: 72-80-7126Dxijbhrricua M2 IgG Ab [Units/volume] in SerumPike Community Hospitaltart: 04-15-2024 [facility]: 87-78-4784ZcjszqzqlPike Community Hospitaltart: 00-63-7932CT Abdomen and PelvisDelaware County Hospital Start: 84-25-4897IY of small intestineCT enterographyPike Community Hospitaltart: 05-44-0262Kthjjlagek guidance for needle biopsyPike Community Hospitaltart: 23-19-0889RmedtjpyePike Community Hospitaltart: 92-59-7040MbzplavkdOhiohealth Doctors Hospital Work Phone: Actin smooth muscle IgG Ab [Units/volume] in Serum [facility] HospitalAlpha 1 antitrypsin [Mass/volume] in Serum or PlasmaDelaware County HospitalAlpha 1 antitrypsin [Mass/volume] in Serum or [facility] TroyAlpha 1 antitrypsin phenotyping [Identifier] in Serum or Plasma by ImmunofixationDelaware County HospitalAlpha-1-fetoprotein.tumor marker [Mass/volume] in Serum or PlasmaDelaware County HospitalCeruloplasmin [Mass/volume] in Serum or PlasmaDelaware County HospitalComprehensive metabolic 2000 panel - Serum or Plasma [facility] HospitalCT Abdomen and PelvisDelaware County HospitalGlucose measurement estimated from glycated hemoglobinDelaware County HospitalHepatic function panelDelaware County HospitalHepatitis A virus Ab [Presence] in Serum by ImmunoassayDelaware County Hospital Hepatitis A virus antibody, IgM typeDelaware County HospitalHepatitis B core antibody measurementDelaware County HospitalHeredwood memorial hospital B core antibody measurement, IgM [facility] CenterHered[facility] hospital B virus surface Ab [Presence] in SerumDelaware County HospitalHeredwood memorial hospital B virus surface Ag [Presence] in Serum or Plasma by ImmunoassayDelaware County HospitalHeireland army community hospitaltis C virus IgG Ab [Presence] in Serum or Plasma by ImmunoassayDelaware County HospitalHFE gene mutations found [Identifier] in Blood or Tissue by Molecular genetics method NominalDelaware County HospitalHomogenous nuclear Ab pattern [Titer] in [facility] HospitalIgG [Mass/volume] in Serum or PlasmaDelaware County HospitalLipoprotein a [Moles/volume] in Serum or PlasmaDelaware County HospitalMitochondria M2 IgG Ab [Units/volume] in [facility] HospitalNuclear Ab [Titer] in [facility] Patient EducationNovant Health Liver Biopsy Discharge Instructions Know your MedUC [facility] Work Phone: Platelets [#/volume] in BloodDelaware County HospitalUltrasonic guidance for needle biopsyDelaware County HospitalClemetrohealth parma medical center ClinicDel[facility] County Hospital Immunizations Immunization DateImmunizationNotesCare BbwgjwswRjjlsxmy95-95-4940AYRN-SaC-4 (COVID-19) mRNAMUL.ORD!c58650GWCBHABR PERRY [facility]10-19-2022influenza virus vaccine, unspecified formulationJENNIFER MARIE [facility]12-07-2021SARS-CoV-2 (COVID-19) mRNA-1273 vaccineJENNIFER MARIE [facility]10-04-2021influenza virus vaccine, unspecified formulationJENNIFER MARIE [facility]04-14-2021COVID-19 mRNA-1273 (Moderna)MD Rafael Erazo Work Phone: [facility]03-28-2021SARS-CoV-2 (COVID-19) mRNA-1273 vaccineGiovany Pak Jr. [facility] [id number]-68 mRNA-1273 (Moderna)MD Rafael Erazo Work Phone: [facility]03-07-2021SARS-CoV-2 (COVID-19) mRNA-1273 vaccineGiovany Pak Jr. [facility] [id number]-ErV-1 (COVID-19) mRNA-1273 vaccine QUINTON MARIE [facility]10-28-2020influenza virus vaccine, unspecified formulationJENNIFER MARIE [facility]06-30-2017pneumococcal polysaccharide vaccine, 23 valentJENNIFER MARIE [facility] Payers DatePayer CategoryPayerPolicy [id number] MedicareMEDICARE MEDICARE A AND B [id number] 2015-Present [place] [id number] 1960Medicare [id number] Health [id number]-pay [id number] 2.0.1.526476.3.57[id number] 2.0.1.677160.3.57[id number] 2..1.990889.3.57[id number] 2.840.1.842657.[id number] 2.840.1.197308.3.579.2.593 [id number] 2.840.1.3[id number] 2.840.1.5[id number] 2.840.1.897412.3.579.2.531 Social History DateTypeDetailFacilityTobacco smoking status NHISUnknown if ever smokedProMedica Defiance Regional Hospitalrt: 12-52-0275Uom Assigned At BirthNot on fileGrant Hospitaltart: 08-25-2020 End: 21-06-8976Toaqhfh smoking status NHISEx-smoker (finding)[facility] CtrStart: 53-59-4097Rjy [facility]igned At [facility] TrumbullTobacco smoking statusNeverExec[facility] sex Assigned At [facility] [employer] Other Goals DatePatient GoalDesired Activity/State Functional Status JxyzXsqtdxrghlAsnflwPbstmfze70-53-8667Cxnouiamvh StatusN/AExec[facility]07-05-2023Functional StatusN/A[facility]06-21-2022Functional StatusN/A [facility] Clinical Notes 10-15-2012 to 03-12-2024 Note Date & EzvwEfmwYnxyysgi90-47-9769 Evaluation note* Author Quang Lima [facility] Hospitallakhwinder 2023 11:35zt43-ipwf-bkk man with MASLD came today for follow-up Patient was previously diagnosed with Crohn's disease however has been off treatment for the last 2 years and he denies symptoms. Colonoscopy on 11/24/2020 showed diverticulosis and small sigmoid polyp and hemorrhoids FibroScan on 01/10/2024 showed LSM 9.3 and CAP: 311 Will get laboratory work up for infectious, autoimmune and metabolic etiologies of liver diseases. Patient does not have secondary causes of hepatic fat accumulation such as significant alcohol consumption, viral hepatitis, steatogenic medications (e.g., tamoxifen, amiodarone, methotrexate), or lipodystrophy. Pt was counseled about weight loss(10%) mediterranean diet and exercise ( >45 minutes X5 per week). Patient would like to get a liver biopsy to confirm diagnosis and staging. Will determine whether to start Resmiterom after getting the biopsy results Regarding questionable diagnosis of Crohn's disease, will check CRP fecal calprotectin and will get CT enterography. [facility] Work Phone: 1(627) 445-120207-16-2024 Evaluation + Plan note Diagnostic Tests Pending * PSA Total 02/04/24 [facility] 07-16-2024 Hospital Discharge instructions Patient Education 02/04/2024 09:49:08 Benign Prostatic Hyperplasia Benign Prostatic Hyperplasia Benign prostatic hyperplasia (BPH) is an enlarged prostate gland that is caused by the normal agingprocess. The prostate may get bigger as a man gets older. The condition is not caused by cancer. The prostate is a walnut-sized gland that is involved in the production of semen. It is located in front of the rectum and below the bladder. The bladder stores urine. The urethra carries stored urine ou t of the body. An enlarged prostate can press on the urethra. This can make it harder to pass urine. The buildup of urine in the bladder can cause infection. Back pressure and infection may progress to bladder damage and kidney (renal) failure. What are the causes? This condition is part of the normal aging process. However, not all men develop problems from thiscondition. If the prostate enlarges away from the urethra, urine flow will not be blocked. If it enlarges toward the urethra and compresses it, there will be problems passing urine. What increases the risk? This condition is more likely to develop in men older than 50 years. What are the signs or [...] urethra. Follow these instructions at home: Take pusn-vzn-azdwosg and prescription medicines only as told by your health care provider. Monitor your symptoms for any changes. Contact your health care provider with any changes. Avoid drinking large amounts of liquid before going to bed or out in public. Avoid or reduce how much caffeine or alcohol you drink. Give yourself time when you urinate. Keep all follow-up visits. This is important. Contact a health care provider if: You have unexplained back pain. Your symptoms do not get better with treatment. You develop side effects from the medicine you are taking. Your urine becomes very dark or has a bad smell. Your lower abdomen becomes distended and you have trouble passing urine. Get help right away if: You have a fever or chills. You suddenly cannot urinate. You feel light-headed or very dizzy, or you faint. There are large amounts of blood or clots in your urine. Your urinary problems become hard to manage. You develop moderate to severe low back or flank pain. The flank is the side of your body between the ribs and the hip. These symptoms may be an emergency. Get help right away. Call 911. Do not wait to see if the symptoms will go away. Do not drive yourself to the hospital. Summary Benign prostatic hyperplasia (BPH) is an enlarged prostate that is caused by the normal aging process. It is not caused by cancer. An enlarged prostate can press on the urethra. This can make it hard to pass urine. This condition is more likely to develop in men older than 50 years. Get help right away if you suddenly cannot urinate. This information is not intended to replace advice given to you by your health care provider. Make sure you discuss any questions you have with your health care provider. Document Revised: 01/24/2022 Document Reviewed: 01/24/2022 Appointedd Patient Education 2022 [employer]. Follow Up Care 01/23/2023 14:00:46 With:QUINTON SALAZAR PA-C, URL Address: [address] [place] [address] [phone] When: Unknown Comments:1 yr w/ PSA [facility] 07-05-2023 Hospital Discharge instructions Patient Education 01/23/2023 13:35:26 Prostate Cancer Screening Prostate Cancer Screening Prostate cancer screening is testing that is done to check for the presence of prostate cancer in men. The prostate gland is a walnut-sized gland that is located below the bladder and in front of therectum in males. The function of the prostate is to add fluid to semen during ejaculation. Prostatecancer is one of the most common types of cancer in men. Who should have prostate cancer screening? Screening recommendations vary based on age and other risk factors, as well as between the professional organizations who make the recommendations. In general, screening is recommended if: You are age 50 to 70 and have an average risk for prostate cancer. You should talk with your healthcare provider about your need for screening and [...] diagnosed with prostate cancer. The risk is higherif your family member's cancer occurred at an early age or if you have multiple family members withprostate cancer at an early age. ?Being a [...] is a blood test called the prostate-specific antigen(PSA) test. PSA is a protein that is [...] treatment? Where to find more information The [place] [employer]: www.cancer.org [place] [employer]: www.auanet.org Contact a health care [...] the recommended screening test for prostate cancer, butit has associated risks. Discuss the risks and [...] provider. Document Revised: 01/01/2022 Document Reviewed: 01/01/2022 Appointedd Patient Education 2022 [employer]. Follow Up Care 01/09/2022 09:58:16 With:MARIE FUNG, QUINTON Franco, URL Address: [address] [place] [address] When:Within 1 Year(s) Comments:w/ PSA [facility] [place] 07-27-2022 Evaluation note* Encounter Date Diagnosis Assessment Notes Treatment Notes Treatment Clinical Notes Jan, Fatty liver (ICD-10 - K76.0) Continue Milk Thistle and Vitamin E Repeat Fibroscan Jan,Liver fibrosis (ICD-10 - K74.00) Jan,rohn disease (ICD-10 - K50.90) Continue to monitor symptoms [employer] Other 06-21-2022 Hospital Discharge instructions Patient Education [...] urethra. Follow these instructions at home: Take wpcm-sfc-nhiynxs and prescription medicines only as told by [...] 07/08/2006 Document Revised: 06/02/2019 Document Reviewed: 08/12/2017 Appointedd Patient Education 2019 [employer]. Follow Up Care 07/11/2021 11:41:34 With:Pasha Cerda MD, Giovany Webster [facility] Address: [facility] [address], [place] [address] [phone] When: Unknown [facility] 04-27-2022 Evaluation note* Encounter Date Diagnosis Assessment Notes Treatment Notes Treatment Clinical Notes Oct, Fatty liver (ICD-10 - K76.0) Stop Imuran CBC & CMP in 6 weeks Liver u/s Q6 months Start vitamin E 1,000 units daily (if not already taking) Start Milk Thistle daily Oct,Liver fibrosis (ICD-10 - K74.00) Oct,rohns disease (ICD-10 - K50.90) Monitor symptoms Patient to call if symptoms flare - will proceed with colonoscopy [employer] Other 02-25-2022 Progress note Author Maria T García [facility] September 15, 2021 12:36pmNote Date/TimeFebruary 2021 12:07pm[facility] [address] [address] Hem/Onc Follow Up Note - OP Signed Patient: Sis Johnson MR#: [id number] : 1950 Acct:[id number] Age/Sex: 71 / M Type: REG RCR Copies to: MD John Queen MD~ Subjective Date/Time of Service: Date of Service: 09/15/2021 Time of Service: 12:05 Chief Complaint: Patient is a former patient of Dr Mcdonald here for a one year followup for anemia. [...] from 4 pills/day to 1 pill/day, and thismay have caused the slight drop in hgb [...] , dyspnea or orthopnea. Pertinent to his leukopenia he denies any fever, chills or any symptoms [...] disease specifically Crohn's. He has been on 6- mercaptopurine or 6-MP for a long time>12 years. [...] decreased as well but is not deficient byany means. He did decrease his B12 supplement [...] his B12 supplement from 4 pills/day to 1pill/day. His levels remain ok/high but energy may have dropped slightly over the last year and hishgb is now 12.9. We will increase his dosing to 2 pills/day and re-evaluate in 1 year. He will callin sooner if symptoms worsen or new symptoms arise. - Time with Patient Coordination of Care & Counseling Time: Greater than 50% of time spent with patient was for coordination of care (as documented) and vihy-ca-ygct counseling of patient and/or family. Dictated By: Maria T García APRN DD/ 1200 Signed By: <Electronically signed by RAGINI García> 09/15/21 5532 [facility] Work Phone: 1(181) 627-139301-26-2022 Evaluation note* Encounter Date Diagnosis Assessment Notes Treatment Notes Treatment Clinical Notes Jul, Fatty liver (ICD-10 - K76.0) START VITAMIN E 800-1000 MG RTO 3 MONTHS Jul,2Crohn disease (ICD-10 - K50.90) [employer] Other 12-07-2021 Evaluation note* Encounter Date Diagnosis Assessment Notes Treatment Notes Treatment Clinical Notes Jun, Crohn disease (ICD-10 - K50.90) Jun,levated liver function tests (ICD-10 - R94.5) [employer] Other 05-06-2021 Evaluation note* [facility]:85ba21-coyw-ptc man with MASLD came today for follow-up Patient was previously diagnosed with Crohn's disease however has been off treatment for the last 2 years and he denies symptoms. Colonoscopy on 11/24/2020 showed diverticulosis and small sigmoid polyp and hemorrhoids FibroScan on 01/10/2024 showed LSM 9.3 and CAP: 311 Will get laboratory work up for infectious, autoimmune and metabolic etiologies of liver diseases. Patient does not have secondary causes of hepatic fat accumulation such as significant alcohol consumption, viral hepatitis, steatogenic medications (e.g., tamoxifen, amiodarone, methotrexate), or lipodystrophy. Pt was counseled about weight loss(10%) mediterranean diet and exercise ( >45 minutes X5 per week). Patient would like to get a liver biopsy to confirm diagnosis and staging. Will determine whether to start Resmiterom after getting the biopsy results Regarding questionable diagnosis of Crohn's disease, will check CRP fecal calprotectin and will get CT enterography. [facility] Work Phone: 1([phone]) 340-280802-04-2021 Progress note Author Harry Currie [facility] August 25, 2020 10:14amNote Date/TimeFebruary 2020 10:14am[facility] [address] [address] Hem/Onc Follow Up Note - OP Signed Patient: Sis Johnson MR#: [id number] : 1950 Acct:[id number] Age/Sex: 70 / M Type: REG RCR [...] , dyspnea or orthopnea. Pertinent to his leukopenia he denies any fever, chills or any symptoms [...] MUSCULOSKELETAL: No back pain, or joint pain. [facility] - Medical History Medical History: Medical History [...] PO DAILY 01/19/19 [History Confirmed 08/25/20] vitamin P64-rxbsk acid 1,000 mg PO DAILY 03/24/19 [History [...] disease specifically Crohn's. He has been on 6- mercaptopurine or 6-MP for a long time>12 years. [...] for coordination of care (as documented) and giou-cj-qgza counseling of patient and/or family. Dictated By: Harry Currie MD DD/ 1013 Signed By: <Electronically signed by Harry Currie MD> 08/25/20 1014 [facility] Work Phone: 1([phone]) 136-111508-04-2020 Progress note Author Harry Currie [facility] February 23, 2020 10:07amNote Date/TimeAugust 2019 10:06[facility] [place] [address] Hem/Onc Follow Up Note - OP Signed Patient: Sis Johnson MR#: [id number] : 1950 Acct:[id number] Age/Sex: 69 / M Type: REG RCR [...] , dyspnea or orthopnea. Pertinent to his leukopenia he denies any fever, chills or any symptoms [...] MUSCULOSKELETAL: No back pain, or joint pain. [facility] - Medical History Medical History: Medical History [...] PO DAILY 01/19/19 [History Confirmed 02/23/20] vitamin E35-houoj acid 1,000 mg PO DAILY 03/24/19 [History [...] % (Auto) 79.1, Lymph % (Auto) 7.9, [place] % (Auto) 9.9, Eos % (Auto) 2.4, Baso % (Auto) 0.7, Neut # (Auto) 3.1, Lymph # (Auto) 0.3 L, [place] # (Auto) 0.4, Eos # (Auto) 0.1, Baso # (Auto) 0.0, Nucleated RBC % (auto) 0.2 Assessment and Plan (1) Anemia Qualifiers: Anemia type: B12 deficiency Anemia and leukopenia, developed in 12/2018, MCV high. He has long-standing history of inflammatory bowel disease specifically Crohn's. He has been on 6- mercaptopurine or 6-MP for a long time>12 years. [...] patient was for coordination of care(as documented) janjjju-zk-yosp counseling of patient and/or family. Dictated By: Harry Currie MD DD/ 1005 Signed By: <Electronically signed by Harry Currie MD> 02/23/20 1007 [facility] Work Phone: [phone]) 439-191602-04-2020 Progress note Author Harry Currie [facility] August 25, 2019 1:37pmNote Date/TimeFebruary 2019 10:00[facility] [place] [address] Hem/Onc Follow Up Note - OP Signed Patient: Sis Johnson MR#: [id number] : 1950 Acct:[id number] Age/Sex: 69 / M Type: REG RCR [...] , dyspnea or orthopnea. Pertinent to his leukopenia he denies any fever, chills or any symptoms [...] MUSCULOSKELETAL: No back pain, or joint pain. [facility] - Medical History Medical History: Medical History [...] PO DAILY 01/19/19 [History Confirmed 08/25/19] vitamin M49-jelne acid 1,000 mg PO DAILY 03/24/19 [History [...] disease specifically Crohn's. He has been on 6- mercaptopurine or 6-MP for a long time>12 years. [...] for coordination of care (as documented) and lggz-nb-anyg counseling of patient and/or family. Dictated By: Harry Currie MD DD/ 1000 Signed By: <Electronically signed by Harry Currie MD> 08/25/19 3769 [facility] Work Phone: 1([phone]) 317-272811-05-2019 Progress note Author Harry Currie [facility] May 26, 2019 9:41amNote Date/TimeMay 26, 2019 9:36am[facility] [address] [address] Hem/Onc Follow Up Note - OP Signed Patient: Sis Johnson MR#: [id number] : 1950 Acct:[id number] Age/Sex: 69 / M Type: REG RCR Copies to: Rafael Erazo MD, MD~ Subjective Date/Time of Service: Date [...] , dyspnea or orthopnea. Pertinent to his leukopenia he denies any fever, chills or any symptoms [...] MUSCULOSKELETAL: No back pain, or joint pain. [facility] - Medical History Medical History: Medical History [...] PO DAILY 01/19/19 [History Confirmed 05/26/19] vitamin V68-gkgjd acid 1,000 mg PO DAILY 03/24/19 [History [...] disease specifically Crohn's. He has been on 6- mercaptopurine or 6-MP for a long time>12 years. [...] CBC, update CMP, haptoglobin, LDH, and retic count.We discussed that he may need a bone marrow biopsy at somepoint concerning possible MDS, however not urgent. (2) Leucopenia As above, WBC counts are stable, no infections. (3) B12 deficiency Gastrin level was high, no parietal cell and intrinsic factor antibodies. -B12 level improved to >600 on oral B12 1000 mcg daily, continue. Repeat B 12 level periodicallyin the future. - Time with Patient Coordination of Care & Counseling Time: Greater than 50% of time spent with patient was for coordination of care (as documented) and mtyi-oi-eyvb counseling of patient and/or family. Dictated By: Harry Currie MD DD/ Signed By: <Electronically signed by Harry Currie MD> 05/26/1941 [facility] Work Phone: 1([phone]) 577-560609-03-2019 Progress note Author Harry Currie [facility] March 24, 2019 10:37amNote Date/TimeSept2018 10:31am[facility] [place] [address] Hem/Onc Follow Up Note - OP Signed Patient: Sis Johnson MR#: [id number] : 1950 Acct:[id number] Age/Sex: 68 / M Type: REG RCR Copies to: Rafael Erazo MD, MD~ Subjective Date/Time of Service: Date [...] , dyspnea or orthopnea. Pertinent to his leukopenia he denies any fever, chills or any symptoms [...] MUSCULOSKELETAL: No back pain, or joint pain. [facility] - Medical History Medical History: Medical History [...] PO DAILY 01/19/19 [History Confirmed 03/24/19] vitamin J40-cwbet acid 1,000 mg PO DAILY 03/24/19 [History [...] 11.8 L, Hct 34.8L, MCV 105.3 H, MCH35.7 H, MCHC 33.9, RDW 16.9 H, Plt Count 259, MPV 7.9, Neut % (Auto) 78.6, Lymph % (Auto) 7.8, [place]% (Auto) 10.7, Eos % (Auto) 2.3, Baso % (Auto) 0.6, Neut # (Auto) 3.1, Lymph # (Auto) 0.3 L, [place] #(Auto) 0.4, Eos # (Auto) 0.1, Baso # (Auto) 0.0, Nucleated RBC % (auto) 0.1 Assessment and Plan (1) Anemia Qualifiers: Anemia type: B12 deficiency Anemia and leukopenia, developed in 12/2018, MCV on the higher end. HE has long- standing history of inflammatory bowel disease specifically Crohn's. [...] for coordination of care (as documented) and ysku-xq-wahw counseling of patient and/or family. Dictated By: Harry Currie MD DD/ 1030 Signed By: <Electronically signed by Harry Currie MD> 03/24/19 1037 [facility] Work Phone: [phone] Progress note Author Harry Currie [facility] February 10, 2019 2:46pmNote Date/TimeJuly 2018 2:40pm[facility] [place] [address] Hem/Onc Follow Up Note - OP Signed Patient: Sis Johnson MR#: [id number] : 1950 Acct:[id number] Age/Sex: 68 / M Type: REG RCR Copies to: Rafael Erazo MD, MD~ Subjective Date/Time of Service: Date [...] , dyspnea or orthopnea. Pertinent to his leukopenia he denies any fever, chills or any symptoms [...] MUSCULOSKELETAL: No back pain, or joint pain. [facility] - Medical History Medical History: Medical History [...] Labs - Last 7 Days 01/19/19 14:57: [facility] Flow Cytometry Assessment and Plan (1) Anemia [...] for coordination of care (as documented) and szfi-cw-bewh counseling of patient and/or family. Dictated By: Harry Currie MD DD/ 1437 Signed By: <Electronically signed by Harry Currie MD> 02/10/19 1446 [facility] Work Phone: 1([phone]) [phone] Progress note Author Ester Da Silva [facility] January 19, 2019 3:57pmNote Date/TimeJuly 2018 3:40pm[facility] [place] [address] Hem/Onc Follow Up Note - OP Signed Patient: Sis Johnson MR#: [id number] : 1950 Acct:[id number] Age/Sex: 68 / M Type: REG RCR Copies to: Rafael Erazo MD, MD~ Subjective Date/Time of Service: Date of Service: 01/19/2019 Time of Service: 15:40 Chief Complaint: New patient appt low B12 HPI: Patient is here with his for evaluation and management of anemia and leukopenia. Patient has long-standing history of inflammatory bowel disease specifically Crohn's. He has been doing extremelywell with no symptoms whatsoever to suggest enterocolitis. Because of the bicytopenias his gastroent erologist, Dr. Pastor appropriately did bidirectional endoscopy withfindings such as polyps unrelated to inflammatory bowel disease. He has been on6- mercaptopurine or 6-MP for a long time. He tooka Remicade prior to this but developed lymphadenopathy so he was switched to 6-MP. Patient is completely asymptomatic from his anemia. He denies even mild fatigue let alone dyspnea, orthopnea, chest pain, dizziness or lightheadedness. In June 2018 his CBC was completely within normal limits. Beginning of December 2018 hemoglobin was slightly down to 12 and WBC 4.4. Few weeks later hemoglobin downto 10 with MCVof 99 and WBC of [...] , dyspnea or orthopnea. Pertinent to his leukopenia he denies any fever, chills or any symptoms of infection PMF - Medical History Medical History: Medical History [...] but also hematologicaldisorders such as plasma cell dyscrasia,he had a cell leukemia or even-albeit extremely [...] possibility is bone marrow biopsy looking for myelosupp ression. But it is invasive and more intelligently if the comprehensive testing is negative I wouldtake him off this medication for a while and see if his counts improve. We will draw the labs todayand asked the patient to come back in 1 to 2 weeks with results and further definitive recommendations - Time with Patient Coordination of Care & Counseling Time: Greater than 50% of time spent with patient was for coordination of care (as documented) and mjom-wg-ahhv counseling of patient and/or family. Dictated By: Ester Da Silva MD DD/ 1540 Signed By: <Electronically signed by Ester Da Silva MD> 01/19/19 1150 [facility] Work Phone: 1([phone]) [phone] History general Narrative - Reported* Type Description Date Medical History Crohn's disease Medical History10/15/12 Colonoscopy-polyp, diverticulosis, quiescent colitis Medical History10/17/11 Colonoscopy-tubular adenoma, hyperplastic polypsMedical History09/05/05 Colonoscopy-hyperplastic polypMedical Cedrsgz37/22/02 Colonoscopy-hyperplastic polypMedical History11/26/00 Colonoscopy-Crohn's disease Medical History01/17/00 Colonoscopy-Crohn's colitis-Dr Masonedical History 2013 EGD-erosive esophagitisMedical Sbbzyhv6611/23/2015 Colonoscopy- Hyperplastc rectal poylp, Diverticulosis, HemorrhoidsMedical HistoryCrohn's diseaseMedical HistoryEsophagitis, other specified typeMedical HistoryTubular adenoma of colonMedical HistoryElevated blood pressureSurgical HistoryRight hand pnhrmla2873Dtntrxlarsmtcsj Historysee above [employer] Other Evaluation + Plan note Future Appointments Appointment Date:01/15/2023 08:30:00 AM Scheduled Provider:Pasha Cerda MD, Giovany Webster Location:[facility] Appointment Type:URO Office Visit Diagnostic Tests Pending * PSA Total 01/09/22 [facility] evaluation + Plan note Future Appointments Appointment Date:01/29/2024 01:00:00 PM Scheduled Provider:QUINTON SALAZAR PA-C Location:[facility] Appointment Type:URO Office Visit Diagnostic Tests Pending * PSA Total 01/23/23 [facility] evalglhium note* Diagnosis Onset Date Resolution Status B12 deficiency acuteAnemiachronicLeucopeniachronic [facility] noteNo assessment information available [facility] Work Phone: Evaluation note* Diagnosis Onset Date Resolution Status Anemia sayhkfrN16 deficiencychronicFolate deficiencychronicLeucopeniachronic [facility] Work Phone: Hospital course Narrative No data available for this section [facility] progress note No data available for this section [facility] progdygs note Author Chana [place] [facility] September 12, 2022 10:18amNote Date/TimeFebruary 2022 9:57am[facility] [address] [address] Hem/Onc Follow Up Note - OP Signed with Addenda Patient: Sis Johnson MR#: [id number] : 1950 Acct:[id number] Age/Sex: 72 / M Type: REG RCR [...] B12 deficiency and anemia. He has Crohn's di sease and he is followed with Dr. Pastor for over the last 25 years with norecent exacerbations.He does follow with Dr. Erazo his primary physician who sawhim recently and ordered a steroid for newonset back pain. Otherwise the patient has been doing well with no current complaints. We reviewed his laboratories showing white blood cell count is now 7100 (was 4406 months ago [id number] 1-year ago). He previously was noted to [...] referred back by his primary physician Dr. Erazo if he has symptomatic cytopenias. The patient is in agreement with this plan. Low complexity 25-minute follow-u pvisit. 09/15/2021: Mr. Johnson presents in follow-up for [...] , dyspnea or orthopnea. Pertinent to his leukopenia he denies any fever, chills or any symptoms [...] Freq: Status: Active Protocol: Document 05/26/19 09:00 BG (Rec: 05/26/19 09:00 BG [id number]) Distress Screening Distress Score: 0 No [...] disease specifically Crohn's. He has been on 6- mercaptopurine or 6-MP for a long time>12 years. [...] decreased as well but is not deficient byany means. He did decrease his B12 supplement from 4 pills/day to 1 pill/day at his visit 1 year ago. We will increase this to 2 pills/day and re-evaluate at his next visit. 09/12/2022: Leukopenia has now recovered to normal 7100 (a lot of this may have been related to his prior immunosuppressive therapy). He is compliant with aomm-tep-tzwnlgj B12 supplement. Laboratoriesordered by nurse practitioner Franco 1 year ago now show folic acid deficiency without associated anemia orleukopenia. We are adding edfh-jaf-lgsxwnr folate supplement 1 mg daily to his [...] his B12 supplement from 4 pills/day to 1pill/day. His levels remain ok/high but energy may have dropped slightly over the last year and hishgb is now 12.9. We will increase his dosing to 2 pills/day and re-evaluate in 1 year. He will callin sooner if symptoms worsen or new symptoms [...] for coordination of care (as documented) and rgtz-iz-tsvl counseling of patient and/or family. Dictated By: Chana Matthews MD DD/ 0965 Signed By: <Electronically signed by MD Chana Matthews> 09/12/22 1014 [facility] Work Phone: Advance Directives No Advanced Directives Records Found Advance Directive Response Recorded Date/ Time Advance Directives No June 28, 2017 4:41pm Advance Directive Response Recorded Date/ Time Advance Directives No June 28, 2017 3:41pm Chief Complaint and Reason for Visit Chief Complaint low vitamin b12 history of colon polypsReason for BqddrG92 deficiency Anemia Leucopenia Chief Complaint K76.0 K74.00 Fatty Liver, Liver Fibrosis Chief Complaint k76.0 k74.00 Chief Complaint low vitamin b12 Reason for Visit B12 deficiency Anemia Leucopenia Chief Complaint low vitamin b12 k76.0 k74.00Reason for VisitAnemia B12 deficiency Folate deficiency Leucopenia Chief Complaint LFTs Chief Complaint LFTs 1 year follow up/fibroscanReason for VisitCrohns disease Fatty liver Metabolic dysfunction-associated steatohepatitis (MASH) Chief Complaint 1 year follow up/fib roscan K75.81Reason for VisitCrohns disease Fatty liver Metabolic dysfunction-associated steatohepatitis (MASH) Chief Complaint 1 year follow up/fib roscan K75.81 k50.90 k75.81Reason for VisitCrohns disease Fatty liver 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) Family History No Family History Records Found Relationship Condition Age at Onset Recorded Date/T rob father Neoplasm of brain Unknown Not SpecifiedDiabetes mellitusUnknownNot SpecifiedMalignant neoplasmUnknown Relationship Condition Age at Onset Recorded Date/T rob father Neoplasm of brain Unknown Not SpecifiedDiabetes mellitusUnknownMalignant neoplasmUnknown Relationship Condition Age at Onset Recorded Date/T rob father Neoplasm of brain Unknown Not SpecifiedDiabetes mellitusUnknownMalignant neoplasmUnknownfatherMalignant neoplasmUnknownNeoplasm of brainUnknownDeceasedUnknown Relationship Condition Age at Onset Recorded Date/T rob father Neoplasm of brain Unknown motherDiabetes mellitusUnknownMalignant neoplasmUnknownfatherMalignant neoplasm UnknownNeoplasm of brainUnknownDeceasedUnknown Summary Purpose Additional Source Comments Source Comments (unrecognize d section and content) In the event this informatio n is protected by the Federal Confidentiality of Alcohol and Drug Abuse Patient Records regulations: The Federal rules restrict any use of the information to criminally investigate or prosecute any alcohol or drug abuse patient.[facility] Care Team (unrecognized sect ion and content) Team Status: Active Member Role Status Dilip Erazo MD Primary Care Provider Active Team Status: Inactive Member Role Status Dilip Erazo MD Primary Care Provider Active Start: January 09, 2024 End: January 09, 2024Imad Asatyler , CARLAttending ProviderActiveStart: January 09, 2024 End: January 09, 2024 Team Status: Inactive Member Role Status Dilip Erazo MD Primary Care Provider Active Margarita Covarrubias ProviderActive Team Status: Active Member Role Status Dilip Erazo MD Primary Care Provider Active John Morris , MDReferring ProviderActiveBo Kush , MDActiveMary Sandra García , APRNAttending ProviderActive Team Status: Inactive Member Role Status Dilip Erazo MD Primary Care Provider Active Start: March 12, 2024 End: March 12, 2024Imad Asatyler , MDAttending ProviderActiveStart: March 12, 2024 End: March 12, 2024 Team Status: Inactive Member Role Status Dilip Erazo MD Primary Care Provider Active Start: April 09, 2024 End: April 09, 2024Imad Asaad , MDAttending ProviderActiveStart: April 09, 2024 End: April 09, 2024 Team Status: Inactive Member Role Status Dilip Erazo MD Primary Care Provider Active Start: April 15, 2024 End: April 15, 2024Imad Asaad , MDAttending ProviderActiveStart: April 15, 2024 End: April 15, 2024 REASON FOR VISIT (unrecogniz ed section and [...] Records FoundNo Status Records FoundNo Status Records FoundNo Status Records Found INFORMATION SOURCE (unrecogn ized section and content) DATE CREATED AUTHOR 05/20/2022 [facility] DATE CREATED AUTHOR AUTHOR'S ORGANIZ ATION 05/09/2024 [facility] DATE CREATED AUTHOR AUTHOR'S ORGANIZ ATION 07/13/2024 [facility] DATE CREATED AUTHOR AUTHOR'S ORGANIZ ATION 04/26/2025 [facility] Goals (unrecognized section and content) Goals may [...] BE BASED ON THE PRIMARY CLINICAL RECORDS. [employer] provides no warranty or guarantee of the accuracy or completeness of information in this document.
[2025-05-13 14:38] LABS: Prostate Specific Antigen Dx 4.65 ng/mL (<=4.00)
== END 2025-05-13 12:47 | disposition home or self-care (01) ==
LOC: LAB 12:49
PROVIDERS: PCP Family Medicine; Visit Provider Nurse Practitioner Family
DX: N40.1 Benign prostatic hyperplasia with lower urinary tract symptoms (principal)
CPT/HCPCS: 36415; 84153